=== PATIENT | female | born 1940 | race Caucasian/White ===

== ENCOUNTER 2022-07-16 14:16 | Outpatient (REF) | payer MEDICARE, SELFPAY ==
[2022-07-16 15:08] LABS: Influenza A PCR NEGATIVE (Negative); Influenza B PCR NEGATIVE (Negative); Resp Syncy Virus RNA Qual PCR NEGATIVE (Negative); SARS COV2 PCR INHOUSE NEGATIVE (Negative)
== END 2022-07-16 14:17 | disposition home or self-care (01) ==
LOC: HO.LNP 14:16
PROVIDERS: Visit Provider Internal Medicine
DX: Z20.822 Contact with and (suspected) exposure to COVID-19 (principal); R43.9 Unspecified disturbances of smell and taste
CPT/HCPCS: 0241U

== ENCOUNTER 2023-02-28 16:44 | Emergency (ER) | payer BC, SELFPAY ==
[2023-02-28 17:04] VITALS: BP 152/73; PULSE 95; RESP 16; TEMP 36.3; O2SAT 97; BMI 25.7
--- NOTE | 2023-02-28 17:04 | ED_ITS ---
HPI - Nausea/Vomiting/Diarrhea General Chief complaint: Nausea/Vomiting/Diarrhea Stated complaint: dairrhea,vomiting,weakness Time Seen by Provider: 02/28/23 22:57 Source: patient and family ( Son.) Mode of arrival: ambulatory Limitations: no limitations History of Present Illness HPI Narrative: 82-year-old female came in with her son complaining of generalized weakness, decreased oral intake for the last 3 days daily. Patient had left shoulder surgery weeks ago complicated lid with wound infection currently taking antibiotics Patient and the emergency department has no complaint Able to tolerate p.o. intake, nausea, vomiting in the emergency department. Related Data Home Medications Medication Instructions Recorded Confirmed amlodipine 5 mg-benazepril 10 mg 1 cap PO DAILY 07/16/22 09/29/22 capsule omeprazole 20 mg capsule,delayed 20 mg PO DAILY 07/16/22 09/29/22 release pravastatin 80 mg tablet 80 mg PO DAILY 07/16/22 09/29/22 loratadine 10 mg tablet 10 mg PO DAILY PRN 09/29/22 09/29/22 Allergies Allergy/AdvReac Type Severity Reaction Status Date / Time No Known Allergies Allergy Verified 09/29/22 10:50 Review of Systems 2 Review of Systems: all other systems are reviewed and are negative Constitutional: Reports as per HPI and Reports no additional constitutional complaints Eyes: Reports as per HPI and Reports no additional eye complaints Reports system reviewed and no additional complaints, except as documented Cardiovascular: Reports as per HPI and Reports no additional cardiovascular complaints Respiratory: Reports as per HPI and Reports no additional respiratory complaints Gastrointestinal: Reports as per HPI and Reports no additional gastrointestinal complaints Genitourinary: Reports no additional female genitourinary complaints Musculoskeletal: Reports no additional musculoskeletal complaints Skin/Breast: Reports system reviewed and no additional complaints, except as docu Psychiatric: Reports no additional psychiatric complaints Endocrine: Reports no additional endocrine complaints Hematologic/Lymphatic: Reports no additional hematologic/lymphatic complaints Allergic/Immunologic: Reports no additional allergic/immunologic complaints Reports system reviewed and no additional complaints, except as documented and Reports Abnormal speech present [facility] Past Medical History Surgical History History of hysterectomy Family History Family History Father No problems noted. Mother Hypertension Social History Social History Household Members Other:: single, lives alone, son lives near Housing: Apartment Patient Tobacco Use Status: Never used Tobacco Smoked in Last 30 Days: No e-Cigarette/Vaping Use: Never Used Use of substances other than those prescribed or required for medical reasons: No Advance Directives: No Advance Directives Information Provided: No Current occupational status: retired Cognitive needs: No Hearing needs: No Vision needs: Yes Physical Exam 2 Vital Signs: Vital Signs: Last Vital Signs Temp 97.7 F 02/28/23 19:53 Pulse 76 02/28/23 19:53 Resp 15 02/28/23 19:53 BP 138/61 02/28/23 19:53 Pulse Ox 96 02/28/23 19:53 O2 Del Method Room Air 02/28/23 19:53 BMI result Body Mass Index 25.7 Vital signs have been reviewed and appear to be correct. Blood pressure elevated. Heart rate normal. Respiratory rate normal. Temperature normal. Oxygen saturation normal. Appearance: Alert. Oriented X3. No acute distress. Head: Normal external exam. Normocephalic. Atraumatic. No Rosenthal signs noted. No raccoon eyes noted Eyes: PERRLA. EOMI. Conjunctiva and sclera normal. Eyelids normal. ENT: TM's Normal. Pharynx normal. Uvula midline. Moist mucous membranes. No trismus noted. No drooling noted. No muffled voice noted. Neck: Normal inspection. Neck supple. FROM. No adenopathy. Thyroid Normal. No meningeal signs. No neck mass noted. CVS: Normal heart rate and rhythm. Heart sound normal. No murmurs noted. Pulses normal throughout. Respiratory: No respiratory distress. Painless inspiration. Breath sounds normal. No wheezes/rales/rhonchi noted. Chest nontender. No accessory muscle usage noted or decreased air movement noted. Abdomen: Soft and nontender. Bowel sounds normal in all 4 quadrants. No distention noted. No organomegaly noted. No visible injury noted. Back: No CVA tenderness. Full range of motion noted. Skin: Skin warm and dry. Normal skin color. Normal skin turgor. No rashes/lesions/lacerations noted. Extremities: No lower extremity edema. Extremities exhibit normal range of motion. Extremities nontender. Neuro: Oriented X 3. Cranial nerve exam: II-XII are grossly intact No motor deficit. No sensory deficit. Reflexes normal. Course Course Course Narrative: This is a rapid medical exam. deferred additional HPI, ROS, PE to primary provider. 82 yo female with history of HTN, HLD, memory loss here with complaints of vomiting, diarrhea, generalized weakness x 3 days. Will obtain labs, UA, Stool studies VSS Was recently on antibiotics Reevaluation(s) Reevaluation #1: nonspecific generalized religiously, unremarkable labs, able to tolerate po intake. Patient is feels little at her baseline And like doing to be discharged home. Time: 23:40 Medical Decision Making Differential Diagnosis Differential Diagnoses: The differential diagnosis associated with the presentation includes ( viral infection, electrolyte abnormality, severe Anemia, dehydration in, UTI, C diff colitis) Admission/Observation Consideration of admission/observation: Escalation of care including admission/observation considered Lab Data MDM Lab Attestation statement: I reviewed the patient's lab results. 02/28/23 17:21 02/28/23 17:21 Labs: Lab Results 02/28/23 02/28/23 02/28/23 Range/Units 17:21 18:53 20:24 WBC 5.6 (4.8-10.8) X10*3/uL RBC 4.92 (4.20-5.50) X10*6/uL Hgb 13.8 (12.0-16.0) g/dl Hct 41.2 (37.0-47.0) % MCV 83.7 (80.0-98.0) fL MCH 28.0 (27.0-33.0) pg MCHC 33.5 (31.0-35.0) g/dl RDW 13.5 (11.0-16.0) % Plt Count 319 (160-400) X10*3/uL MPV 10.4 (9.4-12.3) fL Immature Gran % (Auto) 0.2 (0.0-0.4) % Neut % (Auto) 67.6 (45-73) % Lymph % (Auto) 19.4 L (20-40) % Smith % (Auto) 10.8 (2-11) % Eos % (Auto) 0.7 (0-4) % Baso % (Auto) 1.3 (0-2) % Lymph # (Auto) 1.1 L (1.2-4.9) X10*3/uL Smith # (Auto) 0.6 (0.1-1.2) X10*3/uL Eos # (Auto) 0.0 (0.0-0.4) X10*3/uL Baso # (Auto) 0.1 (0.0-0.2) X10*3/uL Abs Immat Gran (auto) 0.01 (0.00-0.03) X10*3/uL Absolute Neuts (auto) 3.8 (2.0-8.3) x10*3/uL Absolute Nucleated RBC 0.000 (0.0-0.012) X10*3/uL Nucleated RBC % (auto) 0.0 (0.0-0.2) /100WBC Sodium 138 (135-145) mmol/L Potassium 3.6 (3.3-5.1) mmol/L Chloride 102 (96-108) mmol/L Carbon Dioxide 23 (22-29) mmol/L Anion Gap 17 (12-20) BUN 31 H (9-16) mg/dL Creatinine 1.29 (0.5-1.4) mg/dL Estim Creat Clear Calc 29.6 Estimated GFR 39 Random Glucose 102 (60-115) mg/dL Calcium 9.6 (8.4-10.2) mg/dL Magnesium 1.9 (1.6-2.6) mg/dL Total Bilirubin 1.0 (0.0-1.0) mg/dL Direct Bilirubin 0.4 (0.0-0.5) mg/dL AST 33 H (5-31) U/L ALT 29 (0-31) U/L Alkaline Phosphatase 88 (39-117) U/L Total Protein 6.7 (6.5-8.0) g/dL Albumin 3.5 (3.5-5.0) g/dL Lipase 21 (8-78) U/L Urine Color Dark Yellow Urine Appearance Clear Urine pH 5.5 (5.0-9.0) Ur Specific Voss 1.020 (1.005-1.025) Urine Protein Negative (Neg-Trace) mg/dL Urine Glucose (UA) Negative (Negative) mg/dL Urine Ketones 15 (Negative) mg/dL Urine Blood Negative (Negative) Urine Nitrite Negative (Negative) Ur Leukocyte Esterase Trace H (Negative) Urine RBC 0-2 (0-2) /HPF Urine WBC 0-5 (0-5) /HPF Ur Squamous Epith Cells 0-2 (0-2) /HPF Urine Bacteria None Seen (None Seen) Hyaline Casts 3-5 (0-2) /LPF C. difficile Tox B Gene NEGATIVE (Negative) Influenza Type A (PCR) NEGATIVE (Negative) Influenza Type B (PCR) NEGATIVE (Negative) RSV RNA Qual (PCR) NEGATIVE (Negative) SARS-CoV-2 RNA (RT-PCR) NEGATIVE (Negative) Discharge Plan Discharge Clinical Impression: Generalized weakness Patient Disposition: Home, Self-Care Instructions: Weakness (ED) Prescriptions: No Action pravastatin 80 mg tablet 80 mg PO DAILY amlodipine-benazepril 5-10 mg capsule 1 cap PO DAILY omeprazole 20 mg capsule,delayed release(DR/EC) 20 mg PO DAILY loratadine 10 mg tablet 10 mg PO DAILY PRN Referrals: Physician,Unknown J [Primary Care Provider] -
[2023-02-28 17:32] LABS: MANUAL DIFF FLAG NO
[2023-02-28 17:33] LABS: Basophils Absolute Auto 0.1 X10*3/uL (0.0-0.2); Basophils Percent Auto 1.3 % (0-2); Eosinophils Percent Auto 0.7 % (0-4); Hematocrit 41.2 % (37.0-47.0); Hemoglobin 13.8 g/dl (12.0-16.0); Imm Gran Abs Auto 0.01 X10*3/uL (0.00-0.03); Imm Gran Pct Auto 0.2 % (0.0-0.4); Lymphocytes Absolute Auto 1.1 X10*3/uL (1.2-4.9); Lymphocytes Percent Auto 19.4 % (20-40); Mean Corpuscular HGB Conc 33.5 g/dl (31.0-35.0); Mean Corpuscular Volume 83.7 fL (80.0-98.0); Mean Platelet Volume 10.4 fL (9.4-12.3); Monocytes Absolute Auto 0.6 X10*3/uL (0.1-1.2); Monocytes Percent Auto 10.8 % (2-11); Neutrophils Absolute Auto 3.8 x10*3/uL (2.0-8.3); Neutrophils Percent Auto 67.6 % (45-73); Platelet Count 319 X10*3/uL (160-400); Red Blood Count 4.92 X10*6/uL (4.20-5.50); Red Cell Distribution Width 13.5 % (11.0-16.0); White Blood Count 5.6 X10*3/uL (4.8-10.8)
[2023-02-28 17:47] LABS: Alanine Aminotransferase 29 U/L (0-31); Albumin Level 3.5 g/dL (3.5-5.0); Alkaline Phosphatase 88 U/L (39-117); Anion Gap 17 (12-20); Aspartate Amino Transferase 33 U/L (5-31); Bilirubin Direct 0.4 mg/dL (0.0-0.5); Blood Urea Nitrogen 31 mg/dL (9-16); Calcium 9.6 mg/dL (8.4-10.2); Carbon Dioxide 23 mmol/L (22-29); Chloride 102 mmol/L (96-108); Creatinine Clr Calc Pharmacy 29.6; Estimated Glomerular Filt Rate 39; Glucose Random 102 mg/dL (60-115); Lipase 21 U/L (8-78); Magnesium 1.9 mg/dL (1.6-2.6); Potassium 3.6 mmol/L (3.3-5.1); Sodium 138 mmol/L (135-145); Total Protein 6.7 g/dL (6.5-8.0)
[2023-02-28 18:15] LABS: Influenza A PCR NEGATIVE (Negative); Influenza B PCR NEGATIVE (Negative); Resp Syncy Virus RNA Qual PCR NEGATIVE (Negative); SARS COV2 PCR INHOUSE NEGATIVE (Negative)
[2023-02-28 19:49] LABS: CDiff Gene PCR NEGATIVE (Negative)
[2023-02-28 19:53] VITALS: BP 138/61; PULSE 76; RESP 15; TEMP 36.5; O2SAT 96
[2023-02-28 20:32] LABS: Appearance Urine Clear; Color Urine Dark Yellow; Glucose Urine UA Negative (Negative); Leukocyte Esterase Urine Trace (Negative); Nitrite Urine Negative (Negative); PH 5.5 (5.0-9.0); UMIC TRIGGER UACC YES; Urine Blood Negative (Negative); Urine Ketones 15 mg/dL (Negative); Urine Protein Negative (Neg-Trace)
[2023-02-28 20:34] LABS: Bacteria Urine None Seen (None Seen); RBC Urine 0-2 /HPF (0-2); Squamous Epithelial Cell Urine 0-2 /HPF (0-2); WBC Urine 0-5 /HPF (0-5)
[2023-02-28 23:49] VITALS: BP 120/62; PULSE 81; RESP 16; TEMP 36.6; O2SAT 98
--- NOTE | 2023-02-28 23:49 | PC.NURSE ---
This RN reviewed discharge instruction with pt. pt verbalized understanding, no sob or chest pain. notified MEERA Williamson
[2023-03-01 13:10] LABS: Adenovirus F 40/41 Not Detected (Not Detect.); Astrovirus Not Detected (Not Detect.); Campylobacter Not Detected (Not Detect.); Cryptosporidium Not Detected (Not Detect.); Cyclospora cayetanensis Not Detected (Not Detect.); E. coli EAEC Not Detected (Not Detect.); E. coli EPEC Not Detected (Not Detect.); E. coli ETEC Not Detected (Not Detect.); E. coli STEC Not Detected (Not Detect.); Entamoeba histolytica Not Detected (Not Detect.); Giardia lamblia Not Detected (Not Detect.); Norovirus GI/GII Not Detected (Not Detect.); Plesiomonas shigelloides Not Detected (Not Detect.); Rotavirus A Not Detected (Not Detect.); Salmonella Not Detected (Not Detect.); Sapovirus Not Detected (Not Detect.); Shigella sp./EIEC Not Detected (Not Detect.); Vibrio Not Detected (Not Detect.); Vibrio Cholerae Not Detected (Not Detect.); Yersinia enterocolitica Not Detected (Not Detect.)
== END 2023-02-28 23:53 | disposition home or self-care (01) ==
PROVIDERS: Nurse Practitioner Family; Emergency Provider Emergency Medicine
DX: R53.1 Weakness (principal); R11.2 Nausea with vomiting, unspecified; R19.7 Diarrhea, unspecified; Z20.822 Contact with and (suspected) exposure to COVID-19; Z20.828 Contact with and (suspected) exposure to other viral communicable diseases; I10 Essential (primary) hypertension; E78.5 Hyperlipidemia, unspecified; Z90.710 Acquired absence of both cervix and uterus; Z79.899 Other long term (current) drug therapy; E55.9 Vitamin D deficiency, unspecified
CPT/HCPCS: 0241U; 80048; 80076; 81001; 83690; 83735; 85025; 87493; 87507; 99283; 99284

== ENCOUNTER 2023-03-26 10:03 | Outpatient (REF) | payer MEDICARE, SELFPAY ==
[2023-03-26 13:21] LABS: MANUAL DIFF FLAG NO
[2023-03-26 13:29] LABS: Basophils Absolute Auto 0.1 X10*3/uL (0.0-0.2); Basophils Percent Auto 1.4 % (0-2); Eosinophils Absolute Auto 0.1 X10*3/uL (0.0-0.4); Eosinophils Percent Auto 3.1 % (0-4); Hematocrit 34.3 % (37.0-47.0); Hemoglobin 10.7 g/dl (12.0-16.0); Imm Gran Abs Auto 0.01 X10*3/uL (0.00-0.03); Imm Gran Pct Auto 0.3 % (0.0-0.4); Lymphocytes Absolute Auto 0.6 X10*3/uL (1.2-4.9); Mean Corpuscular HGB Conc 31.2 g/dl (31.0-35.0); Mean Corpuscular Hemoglobin 27.8 pg (27.0-33.0); Mean Corpuscular Volume 89.1 fL (80.0-98.0); Monocytes Absolute Auto 0.4 X10*3/uL (0.1-1.2); Monocytes Percent Auto 10.2 % (2-11); Neutrophils Absolute Auto 2.4 x10*3/uL (2.0-8.3); Red Blood Count 3.85 X10*6/uL (4.20-5.50); Red Cell Distribution Width 16.4 % (11.0-16.0); White Blood Count 3.5 X10*3/uL (4.8-10.8)
[2023-03-26 13:53] LABS: Alanine Aminotransferase 15 U/L (0-31); Albumin Level 3.3 g/dL (3.5-5.0); Alkaline Phosphatase 51 U/L (39-117); Anion Gap 12 (12-20); Aspartate Amino Transferase 14 U/L (5-31); Bilirubin Total 0.3 mg/dL (0.0-1.0); Blood Urea Nitrogen 11 mg/dL (9-16); Calcium 9.3 mg/dL (8.4-10.2); Carbon Dioxide 25 mmol/L (22-29); Chloride 107 mmol/L (96-108); Cholesterol 235 mg/dL (<200); Estimated Glomerular Filt Rate > 60; Glucose Fasting 88 mg/dL (60-99); HDL Cholesterol 56 mg/dL (>40); LDL Cholesterol Calculated 156 mg/dL (<100); Potassium 4.2 mmol/L (3.3-5.1); Sodium 140 mmol/L (135-145); Triglycerides 118 mg/dL (<150)
[2023-03-26 14:09] LABS: TSH reflex Free T4 2.77 uIU/mL (0.32-4.0); Vitamin D 25-OH Total 21.7 ng/mL (>30)
[2023-03-26 14:14] LABS: Folate 3.4 ng/mL (> or = 4.0); Vitamin B12 354 pg/mL (200-900)
== END 2023-03-26 10:04 | disposition home or self-care (01) ==
LOC: HO.HMGCLDS 10:03
PROVIDERS: PCP Internal Medicine; Visit Provider Internal Medicine
DX: E78.5 Hyperlipidemia, unspecified (principal); E55.9 Vitamin D deficiency, unspecified; I10 Essential (primary) hypertension
CPT/HCPCS: 36415; 80053; 80061; 82306; 82607; 82746; 84443; 85025

== ENCOUNTER 2023-04-03 09:54 | Outpatient (REF) | payer MEDICARE, SELFPAY ==
[2023-04-03 14:11] LABS: Iron 48 mcg/dL (30-160); Percent Iron Saturation 21 % (15-50); Total Iron Binding Capacity 232 mcg/dL (228-428); Unsaturated Iron Binding 184 ug/dL
[2023-04-04 00:47] LABS: Haptoglobin 192 MG/DL ((30-200))
[2023-04-07 18:22] LABS: IgA 244 mg/dL (70-320); IgG 793 mg/dL (600-1540); IgM 22 mg/dL (50-300)
== END 2023-04-03 09:55 | disposition home or self-care (01) ==
LOC: HO.HMGCLDS 09:54
PROVIDERS: PCP Internal Medicine; Visit Provider Internal Medicine
DX: D64.9 Anemia, unspecified (principal)
CPT/HCPCS: 36415; 82784; 83010; 83540; 86334

== ENCOUNTER 2023-04-28 10:54 | Outpatient (AMB) | payer MEDICARE, SELFPAY ==
--- NOTE | 2023-04-28 10:59 | MHC.PC.OV ---
Vital Signs 04/28/23 11:02 Height 5 ft 2 in Weight 142 lb BMI 26.0 BP 128/74 Blood Pressure Location Lt brachial Position Sitting Pulse 87 Pulse Source Pulse Oximeter Pulse Oximetry (%) 98 Oxygen Delivery Method Room Air Intake Visit Reasons: 6 Month follow up Intake Note: Pt is here today for 6 months follow up visit. Allergies No Known Allergies Allergy (Verified 04/28/23 10:59) Medication List - Last Reconciled 04/28/23 by Brittney Marie MD amlodipine-benazepril 5-10 mg 1 cap PO DAILY cholecalciferol (vitamin D3) 50 mcg PO DAILY folic acid 1 mg PO DAILY loratadine 10 mg PO DAILY PRN omeprazole 20 mg PO DAILY pravastatin 80 mg PO DAILY Tobacco use date assessed: 04/28/23 Fall risk assessment: No Falls in past year Last assessed Fall Risk: 04/28/23 Dental Screening Dental Screen Date: 04/28/23 Did you have a dental visit in the last 12 months?: Yes Did you have a dental problem in the last 6 months where you did not have access to dental care?: No Was dental information given to patient?: Patient has dentist HPI 6 Month follow up HPI Details Patient presents for the follow-up. She was seen in the ER last with complaint of general fatigue. H/H was low with normal iron studies but low folic acid level. Patient was started on folic acid supplement. Her son reports patient being forgetful and possibly not being compliant with her medications. Patient reports eating well-balanced diet, mainly TV dinners. She lives alone but her son visits her every day. She denies chest pain shortness of breath hematochezia melena abdominal pain PFSH Surgical History History of hysterectomy Family History Father No problems noted. Mother Hypertension Social History Household Members Other:: single, lives alone, son lives near Housing: Apartment Patient Tobacco Use Status: Never used Tobacco e-Cigarette/Vaping Use: Never Used Current occupational status: retired Cognitive needs: No Hearing needs: No Vision needs: Yes Questionnaire PHQ-9 Over the last 2 weeks, how often have you been bothered by any of the following problems? 1. Little interest or pleasure in doing things: not at all 2. Feeling down, depressed, or hopeless: not at all 3. Trouble falling or staying asleep, or sleeping too much: not at all 4. Feeling tired or having little energy: not at all 5. Poor appetite or overeating: not at all 6. Feeling bad about yourself - or that you are a failure or have let yourself or your family down: not at all 7. Trouble concentrating on things, such as reading the newspaper or watching television: not at all 8. Moving or speaking so slowly that other people could have noticed. Or the opposite - being so fidgety or restless that you have been moving around a lot more than usual: not at all 9. Thoughts that you would be better off or of hurting yourself in some way: not at all Total score: 0 Depression Screening Interpretation: Negative Depression Screening Done: Yes Source: Developed by Drs. Calvin Meeks, Alexandra Peterson, Kenn Kincaid and colleagues, with an educational clem from [employer]. Thrive Questionnaire Date Thrive assessed: 04/28/23 I am a: Patient What is your living situation today?: I have a steady place to live Within the past 12 months, did the food you bought not last and you didn't have the money to get more?: Never true Within the past 12 months, did you worry whether your food would run out before you got money to buy more?: Never true Do you have trouble paying for medicines?: No Do you have trouble getting transportation to medical appointments?: No Do you have trouble paying your heating and electricity bill?: No Do you have trouble taking care of your child, family member or friend?: No Do you have trouble with day-to-day activities such as bathing, preparing meals, shopping, managing finances, etc.?: No Are you currently unemployed and looking for a job?: No Are you interested in more education?: No Please select the resources that you would like help with: None Currently or been in a relationship where the following occur: no concerns reported AUDIT C Alcohol Use Questionnaire (AUDIT-C) 1. How often do you have a drink containing alcohol?: Never 3. How often do you have six or more drinks on one occasion?: Never Total Score: 0 BEBE-7 AMB Questionnaire BEBE-7 Date BEBE - 7 assessed: 04/28/23 Feeling nervous, anxious, or on edge: 0 = Not at all Not being able to stop or control worryin = Not at all Worrying too much about different things: 0 = Not at all Trouble relaxin = Not at all Being so restless that it is hard to sit still: 0 = Not at all Becoming easily annoyed or irritable: 0 = Not at all Feeling afraid as if something awful might happen: 0 = Not at all Total BEBE-7 score (0-4 normal; 5-9 mild; 10-14 moderate; 15-21 severe): 0 Source: Developed by Drs. Calvin Meeks, Alexandra Peterson, Kenn Kincaid and colleagues, with an educational clem from [employer]. Review of Systems Const All systems reviewed & are unremarkable except as noted in HPI and below Reports no additional complaints Eyes Reports no additional complaints ENT Reports no additional complaints Card Reports no additional complaints Resp Reports no additional complaints GI Reports no additional complaints Reports no additional complaints Physical exam (Primary Care) Vital Signs: Last Vital Signs Pulse 87 04/28/23 11:02 BP 128/74 04/28/23 11:02 Pulse Ox 98 04/28/23 11:02 Oxygen Delivery Method Room Air 04/28/23 11:02 BMI result Body Mass Index 26.0 Tobacco/Smoking Status: Tobacco use Status Tobacco use date assessed 04/28/23 04/28/23 11:07 Patient Tobacco Use Status Never used Tobacco 04/28/23 11:07 e-Cigarette/Vaping Use Never Used 04/28/23 11:00 Depression Screening Interpretation: Negative Thrive Assessment: Date of Thrive Assessment Date Thrive assessed 09/29/22 04/28/23 11:00 Currently or been in a relationship where the following occur: no concerns reported Const General: no acute distress HENMT Ears: hearing grossly normal bilaterally Face and sinus: Yes normal facial exam Neck Neck: Yes no lymphadenopathy and Yes supple Resp Effort & Inspection: normal respiratory effort Auscultation: clear to auscultation bilaterally Cardio Rhythm: regular rhythm Heart sounds: S1 normal heart sound present and S2 normal heart sound present GI Inspection: Yes normal to inspection Palpation (GI): Soft to palpation Percussion: Yes normal to percussion Auscultation: normal bowel sounds Assessment and Plan Assessment & Plan (1) Anemia: Code(s): D64.9 - Anemia, unspecified Plan: check CBC, folic acid, Iron studies, cont Folic acid supplement (2) Vitamin D3 deficiency: Code(s): E55.9 - Vitamin D deficiency, unspecified Plan: cont vit D (3) Hypertension: Code(s): I10 - Essential (primary) hypertension Plan: cont Amlodipine/benazepril (4) Hyperlipidemia: Code(s): E78.5 - Hyperlipidemia, unspecified Plan: restart pravastatin Orders: Orders Complete Blood Count Auto Diff Today D64.9 - Anemia, unspecified, E55.9 - Vitamin D deficiency, unspecified, E78.5 - Hyperlipidemia, unspecified, I10 - Essential (primary) hypertension Comprehensive Tappen. Panel Fast Today D64.9 - Anemia, unspecified, E55.9 - Vitamin D deficiency, unspecified, E78.5 - Hyperlipidemia, unspecified, I10 - Essential (primary) hypertension IRON PROFILE Today D64.9 - Anemia, unspecified, E55.9 - Vitamin D deficiency, unspecified, E78.5 - Hyperlipidemia, unspecified, I10 - Essential (primary) hypertension Vitamin B12 and Folate Today D64.9 - Anemia, unspecified, E55.9 - Vitamin D deficiency, unspecified, E78.5 - Hyperlipidemia, unspecified, I10 - Essential (primary) hypertension Vitamin D 25-OH Total Today D64.9 - Anemia, unspecified, E55.9 - Vitamin D deficiency, unspecified, E78.5 - Hyperlipidemia, unspecified, I10 - Essential (primary) hypertension Medications: New pravastatin 80 mg PO DAILY 90 tabs 3RF amlodipine-benazepril 5-10 mg 1 cap PO DAILY 90 caps 3RF Refilled folic acid 1 mg PO DAILY 90 tabs 3RF cholecalciferol (vitamin D3) 50 mcg PO DAILY 90 tabs 3RF Coding Level of Care Code Est Pt Level 4 (81084) Diagnoses Anemia D64.9 Vitamin D3 deficiency E55.9 Hypertension I10 Hyperlipidemia E78.5
[2023-04-28 11:02] VITALS: BP 128/74; PULSE 87; O2SAT 98; BMI 26.0
== END 2023-04-28 11:44 | disposition home or self-care (01) ==
PROVIDERS: PCP Internal Medicine; Visit Provider Internal Medicine
DX: D64.9 Anemia, unspecified (principal); E55.9 Vitamin D deficiency, unspecified; I10 Essential (primary) hypertension; E78.5 Hyperlipidemia, unspecified
CPT/HCPCS: 99214

== ENCOUNTER 2023-04-28 11:45 | Outpatient (REF) | payer MEDICARE, SELFPAY ==
[2023-04-28 13:13] LABS: Basophils Absolute Auto 0.1 X10*3/uL (0.0-0.2); Basophils Percent Auto 1.6 % (0-2); Eosinophils Absolute Auto 0.1 X10*3/uL (0.0-0.4); Eosinophils Percent Auto 2.1 % (0-4); Hematocrit 37.7 % (37.0-47.0); Hemoglobin 12.3 g/dl (12.0-16.0); Lymphocytes Absolute Auto 0.6 X10*3/uL (1.2-4.9); Lymphocytes Percent Auto 15.9 % (20-40); MANUAL DIFF FLAG SCAN; Mean Corpuscular HGB Conc 32.6 g/dl (31.0-35.0); Mean Corpuscular Hemoglobin 29.3 pg (27.0-33.0); Mean Corpuscular Volume 89.8 fL (80.0-98.0); Monocytes Absolute Auto 0.4 X10*3/uL (0.1-1.2); Monocytes Percent Auto 9.1 % (2-11); Neutrophils Absolute Auto 2.7 x10*3/uL (2.0-8.3); Neutrophils Percent Auto 71.3 % (45-73); PLT CLUMP 1; Red Cell Distribution Width 14.7 % (11.0-16.0); SCAN SMEAR FLAG 1
[2023-04-28 13:20] LABS: White Blood Count 3.8 X10*3/uL (4.8-10.8)
[2023-04-28 13:37] LABS: SLIDE REVIEW VERIFIED
[2023-04-28 13:57] LABS: Alanine Aminotransferase 11 U/L (0-31); Albumin Level 4.1 g/dL (3.5-5.0); Alkaline Phosphatase 61 U/L (39-117); Anion Gap 12 (12-20); Aspartate Amino Transferase 14 U/L (5-31); Bilirubin Total 0.5 mg/dL (0.0-1.0); Blood Urea Nitrogen 11 mg/dL (9-16); Calcium 9.7 mg/dL (8.4-10.2); Carbon Dioxide 22 mmol/L (22-29); Chloride 105 mmol/L (96-108); Estimated Glomerular Filt Rate 53; Glucose Fasting 95 mg/dL (60-99); Iron 90 mcg/dL (30-160); Percent Iron Saturation 31 % (15-50); Potassium 3.9 mmol/L (3.3-5.1); Sodium 135 mmol/L (135-145); Total Iron Binding Capacity 287 mcg/dL (228-428); Total Protein 7.2 g/dL (6.5-8.0); Unsaturated Iron Binding 197 ug/dL
[2023-04-28 14:02] LABS: Vitamin D 25-OH Total 23.5 ng/mL (>30)
[2023-04-28 14:07] LABS: Folate > 20.0 ng/mL (> or = 4.0); Vitamin B12 328 pg/mL (200-900)
== END 2023-04-28 11:46 | disposition home or self-care (01) ==
LOC: HO.HMGCLDS 11:45
PROVIDERS: PCP Internal Medicine; Visit Provider Internal Medicine
DX: D64.9 Anemia, unspecified (principal); E55.9 Vitamin D deficiency, unspecified; I10 Essential (primary) hypertension; E78.5 Hyperlipidemia, unspecified
CPT/HCPCS: 36415; 80053; 82306; 82607; 82746; 83540; 85025

== ENCOUNTER 2023-05-12 16:34 | Inpatient (IN) | payer MEDICARE, SELFPAY ==
--- NOTE | 2023-05-12 | ECG_ITS ---
Test Reason : FALL Blood Pressure : / mmHG Vent. Rate : 080 BPM Atrial Rate : 080 BPM P-R Int : 148 ms QRS Dur : 074 ms QT Int : 378 ms P-R-T Axes : 046 029 044 degrees QTc Int : 435 ms Sinus rhythm with Premature atrial complexes Otherwise normal ECG No previous ECGs available Referred By: Anya Bond Electronically Signed By:Sreedhar Alvarado
--- NOTE | ~2023-05-12 | XR_ITS ---
EXAMINATION: XR CHEST CLINICAL INFORMATION: Preop COMPARISON: None available. TECHNIQUE: Frontal view of the chest was obtained. FINDINGS: The cardiac and mediastinal contours are normal. There is subsegmental atelectasis at the left lung base. The lungs are otherwise clear. There is slight elevation of the right hemidiaphragm. No pleural effusion or pneumothorax. No acute bone abnormality. XR/XR chest 1V IMPRESSION: Subsegmental atelectasis left base.
--- NOTE | ~2023-05-12 | XR_ITS ---
EXAMINATION: XR PELVIS CLINICAL INFORMATION: Status post left hip hemiarthroplasty COMPARISON: None available. TECHNIQUE: AP view of the pelvis. FINDINGS: There is a total left hip prosthesis in satisfactory alignment. Immediate post op surgical alden along the left lateral hip. There are surgical alden in the pelvis from previous intervention. Visualized rest of the pelvis and right hip is unremarkable XR/XR pelvis 1-2V IMPRESSION: Total left hip prosthesis in satisfactory alignment. Immediate post op surgical alden along the left lateral hip.
--- NOTE | ~2023-05-12 | XR_ITS ---
EXAMINATION: XR HIP, LEFT CLINICAL INFORMATION: Fall COMPARISON: None available. TECHNIQUE: Two views of the left hip and one view of the pelvis. FINDINGS: There is a left femoral neck fracture. Bones of the pelvis are unremarkable. Mild degenerative changes of the right hip and visualized lower lumbar spine. Soft tissues are unremarkable. XR/XR hip LT w PEL1V IMPRESSION: Left femoral neck fracture.
--- NOTE | ~2023-05-12 | XR_ITS ---
EXAMINATION: XR KNEE, LEFT CLINICAL INFORMATION: Pain post fall COMPARISON: None available. TECHNIQUE: Two views of the left knee. FINDINGS: Bone alignment is normal. No fracture or dislocation. Mild tricompartment arthritis. Small joint effusion. XR/XR knee LT 2V IMPRESSION: No fracture or dislocation. Degenerative changes.
--- NOTE | ~2023-05-12 | XR_ITS ---
EXAMINATION: XR ANKLE, LEFT CLINICAL INFORMATION: Pain post fall COMPARISON: None available. TECHNIQUE: Two views of the left ankle. FINDINGS: Bone alignment is normal. No fracture or dislocation. The ankle mortise is normal. Bones are osteopenic. Soft tissue arterial calcification. No soft tissue swelling. XR/XR ankle LT 2V IMPRESSION: No fracture or dislocation.
[2023-05-12 18:30] VITALS: BP 145/74; PULSE 87; RESP 18; TEMP 36.6; O2SAT 94; BMI 27.3
--- NOTE | 2023-05-12 18:33 | ED_ITS ---
HPI - Fall General Chief Complaint: Fall Stated Complaint: fell today/pain Time Seen by Provider: 05/12/23 21:03 Source: patient and family Mode of arrival: ambulatory History of Present Illness HPI Narrative: 82-year-old female who was going to [facility] for some cough medication when she slipped and fell on the ice onto the left hip and states that at this time she is unable to bear weight on her left leg and describes pain over the proximal femur/hip area she denies any head strike or loss of consciousness and denies any chronic use of blood thinners. Related Data Previous Rx's Medication Instructions Recorded amlodipine 5 mg-benazepril 10 mg 1 cap PO DAILY #90 caps 04/28/23 capsule cholecalciferol (vitamin D3) 50 50 mcg PO DAILY #90 tabs 04/28/23 mcg (2,000 unit) tablet folic acid 1 mg tablet 1 mg PO DAILY #90 tabs 04/28/23 pravastatin 80 mg tablet 80 mg PO DAILY #90 tabs 04/28/23 Allergies Allergy/AdvReac Type Severity Reaction Status Date / Time No Known Allergies Allergy Verified 04/28/23 10:59 Review of Systems 2 Review of Systems: Pertinent positives and negatives as stated in HPI [facility] [place] Past Medical History Source: nursing notes reviewed Surgical History History of hysterectomy Family History Family History Father No problems noted. Mother Hypertension Social History Social History Household Members Other:: single, lives alone, son lives near Housing: Apartment Patient Tobacco Use Status: Never used Tobacco e-Cigarette/Vaping Use: Never Used Advance Directives: No Advance Directives Information Provided: No Current occupational status: retired Cognitive needs: No Hearing needs: No Vision needs: Yes Physical Exam 2 Vital Signs: Vital Signs: Last Vital Signs Temp 98.7 F 05/12/23 22:08 Pulse 80 05/12/23 22:08 Resp 16 05/12/23 22:08 BP 162/94 H 05/12/23 22:08 Pulse Ox 95 05/12/23 22:08 O2 Del Method Room Air 05/12/23 22:08 BMI result Body Mass Index 27.3 VITAL SIGNS: Reviewed. GENERAL: Well developed, well nourished, in no acute distress. HEAD: Normocephalic/atraumatic EYES: PERRLA, EOMI EARS: Ext canals without abnormality NOSE: Nares patent bilateral OROPHARYNX: no oral lesions noted, posterior pharynx clear NECK: Supple, no adenopathy LUNGS: Normal breath sounds. No adventitious sounds or accessory muscle use. SpO2<94> CARDIOVASCULAR: Regular rate and rhythm without noted murmurs ABDOMEN: Soft, non-tender, non-distended with bowel sounds. PELVIS: pain at LEFT hip and inability to lift leg MUSCULOSKELETAL: No tenderness, deformities, or effusions noted on gross inspection. EXTREMITIES: No cyanosis, clubbing or edema. SKIN: Inspection of the skin reveals no rashes NEUROLOGIC: Alert and oriented x 4. Strength and sensation to light touch were grossly intact x 4. Course Course Course Narrative: RME: 82 year-old F w/ PMHx HTN, HLD, anemia presenting to the ED c/o LLE pain s/p slip & fall on ice around 16:30, denies head trauma or LOC. Has not ambulated since fall +L knee swelling with superficial abrasion and tenderness. Left ankle with diffuse tenderness. Pelvis stable. In wheelchair X-rays ordered Full HPI, ROS and PE to be performed by primary ED provider. Medications Administered Discontinued Medications Generic Name Dose Route Start Last Admin Trade Name Freq PRN Reason Stop Dose Admin Ketorolac Tromethamine 15 mg 05/12/23 22:09 05/12/23 22:58 Ketorolac Tromethamine 30 Mg/Ml Vial IVPUSH 05/12/23 22:10 15 mg ONCE ONE Administration Medical Decision Making Medical Decision Making [facility] Narrative: 82-year-old female with history and clinical presentation, DDX: High clinical suspicion for left hip fracture, lower clinical suspicion for any knee/femur/ankle pathology. 223: I reviewed hip x-ray and positive for left femoral neck fracture. I informed Orthopedics who recommends admission. 7: I discussed case with inpatient hospitalist who accepts admission. I reviewed all investigations and hematologic indices demonstrate a noninfectious reactive leukocytosis, patient is afebrile and has a normocytic anemia which she has had previously and carries a diagnosis for anemia without any history or clinical findings to suggest active bleeding. Chemistry indices negative for NIYAH/electrolyte or liver enzyme derangements. X-rays demonstrate a left femoral neck fracture and otherwise no acute findings on chest x-ray or knee/ankle. Urinalysis is pending Differential Diagnosis Differential Diagnoses: The differential diagnosis associated with the presentation includes Please see the discussion above Admission/Observation Consideration of admission/observation: Escalation of care including admission/observation considered Please see the discussion above Consult Healthcare Provider Management of the patient was discussed with: Hospitalist and Manufacturing Process Technician Please see the discussion above Lab Data MDM Lab Attestation statement: I reviewed the patient's lab results. Please see the discussion above 05/12/23 22:53 05/12/23 22:53 Labs: Lab Results 05/12/23 Range/Units 22:53 WBC 13.0 H (4.8-10.8) X10*3/uL RBC 3.88 L (4.20-5.50) X10*6/uL Hgb 11.3 L (12.0-16.0) g/dl Hct 34.0 L (37.0-47.0) % MCV 87.6 (80.0-98.0) fL MCH 29.1 (27.0-33.0) pg MCHC 33.2 (31.0-35.0) g/dl RDW 14.1 (11.0-16.0) % Plt Count 160 D (160-400) X10*3/uL MPV 11.2 (9.4-12.3) fL Immature Gran % (Auto) 0.4 (0.0-0.4) % Neut % (Auto) 91.6 H (45-73) % Lymph % (Auto) 1.8 L (20-40) % Gladwin % (Auto) 5.9 (2-11) % Eos % (Auto) 0.0 (0-4) % Baso % (Auto) 0.3 (0-2) % Lymph # (Auto) 0.2 L (1.2-4.9) X10*3/uL [place] # (Auto) 0.8 (0.1-1.2) X10*3/uL Eos # (Auto) 0.0 (0.0-0.4) X10*3/uL Baso # (Auto) 0.0 (0.0-0.2) X10*3/uL Abs Immat Gran (auto) 0.05 H (0.00-0.03) X10*3/uL Absolute Neuts (auto) 11.9 H (2.0-8.3) x10*3/uL Absolute Nucleated RBC 0.000 (0.0-0.012) X10*3/uL Nucleated RBC % (auto) 0.0 (0.0-0.2) /100WBC Smear Tech's Comments VERIFIED Sodium 136 (135-145) mmol/L Potassium 3.7 (3.3-5.1) mmol/L Chloride 105 (96-108) mmol/L Carbon Dioxide 22 (22-29) mmol/L Anion Gap 13 (12-20) BUN 11 (9-16) mg/dL Creatinine 0.86 (0.5-1.4) mg/dL Estim Creat Clear Calc 40.5 Estimated GFR > 60 Random Glucose 148 H (60-115) mg/dL Calcium 9.1 D (8.4-10.2) mg/dL Total Bilirubin 0.5 (0.0-1.0) mg/dL AST 18 (5-31) U/L ALT 14 (0-31) U/L Alkaline Phosphatase 56 (39-117) U/L Total Protein 6.6 (6.5-8.0) g/dL Albumin 3.7 (3.5-5.0) g/dL Radiology Impression Discussion of test interpretation with radiology: I have reviewed the radiologist's reading. Radiologist Impression: Please see the discussion above External Record Review External record reviewed: Outpatient record, Prior outpatient labs and Prior outpatient radiology Chronic Conditions Patient?s care impacted by: Hypertension Critical Care Time Critical Care Time Critical Care Time: Yes Total Critical Care Time: 60 Attestation: I personally attest to this time spent taking care of the patient. Discharge Plan Discharge Clinical Impression: Closed fracture of neck of left femur Patient Disposition: Admitted As Inpatient
[2023-05-12 20:39] VITALS: BP 132/81; PULSE 109; RESP 16; O2SAT 94
[2023-05-12 22:08] VITALS: BP 162/94; PULSE 80; RESP 16; TEMP 37.1; O2SAT 95
[2023-05-12] MEDS: Ketorolac Tromethamine 30 MG/ML VIAL 15 MG IVPUSH (22:58)
[2023-05-12 23:01] LABS: Basophils Percent Auto 0.3 % (0-2); Hemoglobin 11.3 g/dl (12.0-16.0); Imm Gran Abs Auto 0.05 X10*3/uL (0.00-0.03); Imm Gran Pct Auto 0.4 % (0.0-0.4); Lymphocytes Absolute Auto 0.2 X10*3/uL (1.2-4.9); Lymphocytes Percent Auto 1.8 % (20-40); MANUAL DIFF FLAG SCAN; Mean Corpuscular HGB Conc 33.2 g/dl (31.0-35.0); Mean Corpuscular Hemoglobin 29.1 pg (27.0-33.0); Mean Corpuscular Volume 87.6 fL (80.0-98.0); Mean Platelet Volume 11.2 fL (9.4-12.3); Monocytes Absolute Auto 0.8 X10*3/uL (0.1-1.2); Monocytes Percent Auto 5.9 % (2-11); Neutrophils Absolute Auto 11.9 x10*3/uL (2.0-8.3); Neutrophils Percent Auto 91.6 % (45-73); Platelet Count 160 X10*3/uL (160-400); Red Blood Count 3.88 X10*6/uL (4.20-5.50); Red Cell Distribution Width 14.1 % (11.0-16.0); SCAN SMEAR FLAG 1
[2023-05-12 23:17] LABS: Alanine Aminotransferase 14 U/L (0-31); Albumin Level 3.7 g/dL (3.5-5.0); Alkaline Phosphatase 56 U/L (39-117); Anion Gap 13 (12-20); Aspartate Amino Transferase 18 U/L (5-31); Bilirubin Total 0.5 mg/dL (0.0-1.0); Blood Urea Nitrogen 11 mg/dL (9-16); Calcium 9.1 mg/dL (8.4-10.2); Carbon Dioxide 22 mmol/L (22-29); Chloride 105 mmol/L (96-108); Creatinine Clr Calc Pharmacy 40.5; Estimated Glomerular Filt Rate > 60; Glucose Random 148 mg/dL (60-115); Potassium 3.7 mmol/L (3.3-5.1); Sodium 136 mmol/L (135-145); Total Protein 6.6 g/dL (6.5-8.0)
[2023-05-12 23:18] LABS: SLIDE REVIEW VERIFIED
[2023-05-13] VITALS (9 sets, daily range): BP systolic 97–167; BP diastolic 44–91; PULSE 80–93; RESP 16–18; TEMP 36.1–36.9; O2SAT 91–97; BMI 28.2
[2023-05-13] MEDS: HYDROmorphone HCl 1 MG/ML SYRINGE 0.8 MG IVPUSH (00:10)
[2023-05-13] MEDS: Lactated Ringers 1,000 ML 100 ML IVCONT ×2 (00:10→19:42)
[2023-05-13] MEDS: Acetaminophen 325 MG TABLET 975 MG PO (00:10)
--- NOTE | 2023-05-13 00:39 | P.HPHOSP_ITS ---
History of Present Illness Date of Service: 05/12/23 Attending physician on admission: Anya Bond Chief Complaint: Fall, left hip pain Lyudmila Wise is 82 years old woman with past medical history significant for hypertension and hyperlipidemia after she seems to have full. She slipped on the ice and landed on her left hip. She was unable to stand up after falling. She denies head trauma. She denied any symptoms such as dizziness, headache, shortness of breath or chest pain. She also denied nausea, vomiting or diarrhea. There is no fever or chills reported. Patient denied tobacco smoking, alcohol abuse or illicit drug use. She does not take aspirin or anticoagulants. In the ED, she was found to have stable vital signs. Last blood pressure is elevated, 162/94. Blood workup was remarkable for leukocytosis. This mild anemia of 11.3. There are no significant electrolyte imbalances. Renal function is normal. ED tx: Ketorolac IV. According to ED provider case has been discussed with the orthopedic surgery service. Review of Systems 2 Review of Systems: All 12 systems were reviewed and normal except as noted in HPI. [facility] Family History Father No problems noted. Mother Hypertension Surgical History History of hysterectomy Social History Household Members Other:: single, lives alone, son lives near Housing: Apartment Patient Tobacco Use Status: Never used Tobacco e-Cigarette/Vaping Use: Never Used Advance Directives: No Advance Directives Information Provided: No Current occupational status: retired Cognitive needs: No Hearing needs: No Vision needs: Yes Meds Allergies Allergy/AdvReac Type Severity Reaction Status Date / Time No Known Allergies Allergy Verified 04/28/23 10:59 Active Medications: Current Medications Heparin Sodium (Porcine) (Heparin Sodium,Porcine 5,000 Unit/Ml Vial) 5,000 unit SUBCUT BID DEBBIE Hydromorphone HCl (Hydromorphone Hcl 0.5 Mg/0.5 Ml Syringe) 0.5 mg IVPUSH Q3H PRN; Protocol PRN Reason: Pain, Moderate(Pain Scale 4-6) Lactated Ringer's (Lr) 1,000 mls @ 100 mls/hr IVCONT .Q10H [facility] Last Admin: 05/13/23 00:10 Dose: 100 mls/hr Sodium Chloride (0.9 % Sodium Chloride Flush 3 Ml Syringe) 3 ml IVFLUSH QSHIFT [facility] Last Admin: 05/13/23 00:09 Dose: Not Given Physical Exam 2 Vital Signs and Narrative: Vital Signs: Last Vital Signs Temp 98.7 F 05/12/23 22:08 Pulse 80 05/12/23 22:08 Resp 16 05/12/23 22:08 BP 162/94 H 05/12/23 22:08 Pulse Ox 95 05/12/23 22:08 O2 Del Method Room Air 05/12/23 22:08 BMI result Body Mass Index 27.3 Constitutional - Awake and Alert, No apparent distress. Low-salt consult due to pain HEENT - PERRL, EOMI Heart - RRR, No murmurs. Respiratory - Normal lung expansion, Normal respiratory effort, No respiratory distress, CTA bilaterally Gastrointestinal - NT / ND; +BS; No rebound or guarding Extremities - Left hip: Tenderness to palpation. No open wounds. Limited ROM. Distal pulses intact. Skin - Warm/Dry Neurological - Alert & oriented x3. Psychological - Appropriate affect. Results Labs 05/12/23 22:53 05/12/23 22:53 Labs: Laboratory Results - last 24 hr 05/12/23 22:53 MCV 87.6 MCH 29.1 MCHC 33.2 RDW 14.1 Plt Count 160 D MPV 11.2 Immature Gran % (Auto) 0.4 Neut % (Auto) 91.6 H Lymph % (Auto) 1.8 L [place] % (Auto) 5.9 Eos % (Auto) 0.0 Baso % (Auto) 0.3 Lymph # (Auto) 0.2 L [place] # (Auto) 0.8 Eos # (Auto) 0.0 Baso # (Auto) 0.0 Abs Immat Gran (auto) 0.05 H Absolute Neuts (auto) 11.9 H Absolute Nucleated RBC 0.000 Nucleated RBC % (auto) 0.0 Smear Tech's Comments VERIFIED Anion Gap 13 Estim Creat Clear Calc 40.5 Estimated GFR > 60 Random Glucose 148 H Calcium 9.1 D Total Bilirubin 0.5 AST 18 ALT 14 Alkaline Phosphatase 56 Total Protein 6.6 Albumin 3.7 Imaging Radiologist's Impressions: Impressions Ankle X-Ray 05/12/23 22:20 IMPRESSION: No fracture or dislocation. Chest X-Ray 05/12/23 22:20 IMPRESSION: Subsegmental atelectasis left base. Hip/Pelvis X-Ray 05/12/23 22:20 IMPRESSION: Left femoral neck fracture. Knee X-Ray 05/12/23 22:20 IMPRESSION: No fracture or dislocation. Degenerative changes. Assessment and Plan (1) Closed fracture of neck of left femur: Status: Acute (2) Hypertension: Status: Acute Plan Lyudmila Wise is a 82 years old woman admitted with: * Left femoral neck fracture. Admit to hospitalist service. Keep NPO. Pain control with Dilaudid and Tylenol as needed. Orthopedic surgery. Start IV fluids. * Essential hypertension. Continue amlodipine. * Hyperlipidemia. Continue statin. * Mild anemia. Will continue to monitor. DVT prophylaxis: Heparin subQ Code status: Full. Patient will need hospitalization for at least 2 midnights for left femoral neck fracture repair surgery and pain control Quality Stroke Does the patient have a stroke diagnosis?: No VTE Prior VTE?: No VTE Risk Level:: Medical - moderate - high VTE Device Contraindication: N/A - Device Ordered VTE Drug Contraindication: N/A - Med Ordered
[2023-05-13 01:34] LABS: Appearance Urine Clear; Color Urine Yellow; Glucose Urine UA Negative (Negative); Leukocyte Esterase Urine Negative (Negative); Nitrite Urine Negative (Negative); PH 5.5 (5.0-9.0); Specific Gravity - Urine 1.015 (1.005-1.025); Urine Blood Negative (Negative); Urine Ketones Trace mg/dL (Negative); Urine Protein Negative (Neg-Trace)
--- NOTE | 2023-05-13 01:48 | PC.NURSE ---
late entry. pt axox4 resp even and unlabored. Dr. Manuel Bond came to bedside for admission eval. pt medicated per mar for pain. ivf infusing. carl cath inserted as documented pt tolerated well. nad. pt changed into hospital gown jewelry removed per surgery standards. belongings at bedside. Son educated for plan of care no questions/concerns at this time. L. hip rotated externally. skin wpd. cap refill <2 seconds. +pedal pulses. awaiting bed assignment/ortho consult. call oscar within reach.
--- NOTE | 2023-05-13 07:27 | PM.HPOR ---
History of Present Illness History of Present Illness Date of Service: 05/13/23 Chief complaint: Left Hip Fracture Narrative: Lyudmila Wise is a 82 year old female who presented to the ED after sustaining a slip and fall on ice. She hit her left hip and felt immediate pain and inability to ambulate. She has a PMH significant for HTN and HLD. X-rays obtained in the ED revealed a left hip femoral neck fracture. She was admitted to the medicine service with orthopedic consult for further evaluation and treatment. Review of Systems Review of Systems: Yes all other systems are reviewed and are negative [facility] Family History Family History Father No problems noted. Mother Hypertension Surgical History Surgical History History of hysterectomy Social History Social History Household Members: None Household Members Other:: single, lives alone, son lives near Housing: Assisted Living Facility Do you presently have visiting nurse or other home services: Yes Patient Tobacco Use Status: Never used Tobacco e-Cigarette/Vaping Use: Never Used Current occupational status: retired Cognitive needs: No Hearing needs: No Vision needs: Yes Meds Allergies Allergy/AdvReac Type Severity Reaction Status Date / Time No Known Allergies Allergy Verified 04/28/23 10:59 Active Medications: Current Medications Amlodipine Besylate (Amlodipine Besylate 5 Mg Tablet) 5 mg PO DAILY DEBBIE; Protocol Heparin Sodium (Porcine) (Heparin Sodium,Porcine 5,000 Unit/Ml Vial) 5,000 unit SUBCUT BID [facility] Hydromorphone HCl (Hydromorphone Hcl 0.5 Mg/0.5 Ml Syringe) 0.5 mg IVPUSH Q3H PRN; Protocol PRN Reason: Pain, Moderate(Pain Scale 4-6) Lactated Ringer's (Lr) 1,000 mls @ 100 mls/hr IVCONT .Q10H [facility] Last Admin: 05/13/23 00:10 Dose: 100 mls/hr Pravastatin Sodium (Pravastatin Sodium 80 Mg Tablet) 80 mg PO BEDTIME [facility] Sodium Chloride (0.9 % Sodium Chloride Flush 3 Ml Syringe) 3 ml IVFLUSH QSHIFT [facility] Last Admin: 05/13/23 00:09 Dose: Not Given Physical Exam Vital Signs: Vital Signs: Last Vital Signs Temp 98.7 F 05/12/23 22:08 Pulse 80 05/12/23 22:08 Resp 16 05/12/23 22:08 BP 162/94 H 05/12/23 22:08 Pulse Ox 95 05/12/23 22:08 O2 Del Method Room Air 05/12/23 22:08 BMI result Body Mass Index 28.2 Const: General: cooperative, healthy appearing and no acute distress Resp: Effort & Inspection: normal respiratory effort and able to speak in complete sentences Cardio: Rate: regular rate Peripheral pulses: Peripheral pulses 2+ throughout GI: Palpation (GI): Soft to palpation Skin: Lesions: no lesions Rashes: no rashes Extrem: Other: Left lower extremity is shortened and externally rotated. Able to dorsi/plantar flex. NVI. Results Labs 05/12/23 22:53 05/12/23 22:53 Labs: Abnormal lab results 05/12/23 Range/Units 22:53 WBC 13.0 H (4.8-10.8) X10*3/uL RBC 3.88 L (4.20-5.50) X10*6/uL Hgb 11.3 L (12.0-16.0) g/dl Hct 34.0 L (37.0-47.0) % Neut % (Auto) 91.6 H (45-73) % Lymph % (Auto) 1.8 L (20-40) % Lymph # (Auto) 0.2 L (1.2-4.9) X10*3/uL Abs Immat Gran (auto) 0.05 H (0.00-0.03) X10*3/uL Absolute Neuts (auto) 11.9 H (2.0-8.3) x10*3/uL Random Glucose 148 H (60-115) mg/dL H & H 05/12/23 Range/Units 22:53 Hgb 11.3 L (12.0-16.0) g/dl Hct 34.0 L (37.0-47.0) % All other labs normal. Assessment and Plan (1) Closed fracture of neck of left femur: Status: Acute I discussed the case with Dr. Stout and explained the extent of the injury to the patient and options available which include surgical intervention. I explained the procedure in detail along with the length of recovery and rehab course. I explained the risk, benefits and alternatives. Risk including, but not limited to infection, blood clots, bleeding, non union or malunion and nerve/tissue damage to surrounding areas. I answered all their questions and with their understanding they have consented to move forward with Operative Fixation of the left hip. The patient will be T&S, med clearance obtained and remain NPO. Quality Stroke Does the patient have a stroke diagnosis?: No VTE Prior VTE?: No VTE Risk Level:: Medical - moderate - high VTE Device Contraindication: N/A - Device Ordered VTE Drug Contraindication: N/A - Med Ordered Procedures Date of Service Date of Service: 05/13/23
--- NOTE | 2023-05-13 08:50 | PHA.MEDREC ---
Pharmacy Consult ? Medication Reconciliation Pharmacy has completed the medication reconciliation. Spoke to patient at bedside but she was very confused and unsure of where she was. She told me her son Nadeem helps with her medications, called him and he stated she's a hypochondriac, she takes everything but could not name vitamins/supplements. Used pharmacy claim history, pt stated she only uses [facility].
--- NOTE | 2023-05-13 12:13 | MHC.CM.PN ---
pt having a hip repair today would prefer to go homem when dc ready referral to hvns would consider str as a last resort
[2023-05-13] MEDS: HYDROmorphone HCl 0.5 MG/0.5 ML SYRINGE IVPUSH (12:48)
--- NOTE | 2023-05-13 13:47 | HO.PM.IMPN ---
Subjective Subjective Date of Service: 05/13/23 Interval History: seen and evaluated this morning reporting mild pain in hib denies any fever or chills no overnight events Review of Systems Review of Systems: Yes all other systems are reviewed and are negative Physical Exam Vital Signs: Vital Signs: Last Vital Signs Temp 97.7 F 05/13/23 07:45 Pulse 80 05/13/23 07:45 Resp 16 05/13/23 07:45 BP 150/67 H 05/13/23 07:45 Pulse Ox 93 05/13/23 07:45 O2 Del Method Room Air 05/13/23 07:45 BMI result Body Mass Index 28.2 Const: Other: Constitutional : Awake, interactive, not in distress Neck : Normal inspection, Supple Cardiovascular : RRR, no JVP, no lower extremity edema Respiratory : good bilateral air entry, no crackles, wheezes or rhonchi Gastrointestinal: soft, lax, Normal bowel sounds, Non tender Skin : Warm, Dry Skeletal: Left leg shorted and externally rotated Neurological : Alert & oriented x3, No focal deficit Objective Data Active Medications Amlodipine Besylate (Amlodipine Besylate 5 Mg Tablet) 5 mg PO DAILY DEBBIE; Protocol Last Admin: 05/13/23 09:46 Dose: Not Given Documented By: ERIC Non-Admin Reason: NPO Heparin Sodium (Porcine) (Heparin Sodium,Porcine 5,000 Unit/Ml Vial) 5,000 unit SUBCUT BID DEBBIE Hydromorphone HCl (Hydromorphone Hcl 0.5 Mg/0.5 Ml Syringe) 0.5 mg IVPUSH Q3H PRN; Protocol PRN Reason: Pain, Moderate(Pain Scale 4-6) Last Admin: 05/13/23 12:48 Dose: 0.5 mg Documented By: ERIC Lactated Ringer's (Lr) 1,000 mls @ 100 mls/hr IVCONT .Q10H DEB[facility] Last Infusion: 05/13/23 10:19 Dose: Infused Documented By: ERIC Pravastatin Sodium (Pravastatin Sodium 80 Mg Tablet) 80 mg PO BEDTIME [facility] Sodium Chloride (0.9 % Sodium Chloride Flush 3 Ml Syringe) 3 ml IVFLUSH QSHIFT [facility]BBI[facility] Last Admin: 05/13/23 07:30 Dose: Not Given Documented By: ERIC Non-Admin Reason: IV Running Labs 05/12/23 22:53 05/12/23 22:53 Labs: Laboratory Results - last 24 hr 05/12/23 05/13/23 22:53 01:29 MCV 87.6 MCH 29.1 MCHC 33.2 RDW 14.1 Plt Count 160 D MPV 11.2 Immature Gran % (Auto) 0.4 Neut % (Auto) 91.6 H Lymph % (Auto) 1.8 L [place] % (Auto) 5.9 Eos % (Auto) 0.0 Baso % (Auto) 0.3 Lymph # (Auto) 0.2 L [place] # (Auto) 0.8 Eos # (Auto) 0.0 Baso # (Auto) 0.0 Abs Immat Gran (auto) 0.05 H Absolute Neuts (auto) 11.9 H Absolute Nucleated RBC 0.000 Nucleated RBC % (auto) 0.0 Smear Tech's Comments VERIFIED Anion Gap 13 Estim Creat Clear Calc 40.5 Estimated GFR > 60 Random Glucose 148 H Calcium 9.1 D Total Bilirubin 0.5 AST 18 ALT 14 Alkaline Phosphatase 56 Total Protein 6.6 Albumin 3.7 Urine Color Yellow Urine Appearance Clear Urine pH 5.5 Ur Specific [place] 1.015 Urine Protein Negative Urine Glucose (UA) Negative Urine Ketones Trace Urine Blood Negative Urine Nitrite Negative Ur Leukocyte Esterase Negative Blood Type A Positive Antibody Screen NEGATIVE Assessment and Plan (1) Closed fracture of neck of left femur: Status: Acute (2) Anemia: Status: Acute Plan Lyudmila Wise is a 82 years old woman admitted with: # Left femoral neck fracture Pain control with Dilaudid and Tylenol as needed Orthopedic to do surgery today on IVF # Essential hypertension. Continue amlodipine. # Hyperlipidemia. Continue statin. # Mild anemia. monitor CBC, transfuse as needed DVT prophylaxis: Heparin subQ Code status: Full. Patient will need hospitalization overnight for left femoral neck fracture repair surgery and pain control Quality Stroke Does the patient have a stroke diagnosis?: No VTE Prior VTE?: No VTE Risk Level:: Medical - moderate - high VTE Device Contraindication: N/A - Device Ordered VTE Drug Contraindication: N/A - Med Ordered
--- NOTE | 2023-05-13 16:01 | P.CONAN_ITS ---
HPI - Anesthesia Eval Consult details Narrative: for left hemiarthroplasty PMFSH Active Problems Active Problems: All Active Problems (Updated 05/12/23 @ 22:39 by Amina Inman MD) Closed fracture of neck of left femur (Acute) Anemia (Acute) Vitamin D3 deficiency (Acute) Hyperlipidemia (Acute) Hypertension (Acute) Upper respiratory tract infection (Acute) Family History Family History Father No problems noted. Mother Hypertension Family history of problems with anesthesia: No Surgical History Surgical History History of hysterectomy History of Problems with Anesthesia: No Social History Social History Household Members: None Household Members Other:: single, lives alone, son lives near Housing: Assisted Living Facility Do you presently have visiting nurse or other home services: Yes Patient Tobacco Use Status: Never used Tobacco e-Cigarette/Vaping Use: Never Used Current occupational status: retired Cognitive needs: No Hearing needs: No Vision needs: Yes Meds Allergies Allergy/AdvReac Type Severity Reaction Status Date / Time No Known Allergies Allergy Verified 04/28/23 10:59 Active Medications: Current Medications Amlodipine Besylate (Amlodipine Besylate 5 Mg Tablet) 5 mg PO DAILY [facility]; Protocol Last Admin: 05/13/23 09:46 Dose: Not Given Heparin Sodium (Porcine) (Heparin Sodium,Porcine 5,000 Unit/Ml Vial) 5,000 unit SUBCUT BID [facility] Last Admin: 05/13/23 13:51 Dose: Not Given Hydromorphone HCl (Hydromorphone Hcl 0.5 Mg/0.5 Ml Syringe) 0.5 mg IVPUSH Q3H PRN; Protocol PRN Reason: Pain, Moderate(Pain Scale 4-6) Last Admin: 05/13/23 12:48 Dose: 0.5 mg Lactated Ringer's (Lr) 1,000 mls @ 100 mls/hr IVCONT .Q10H [facility] Last Infusion: 05/13/23 10:19 Dose: Infused Pravastatin Sodium (Pravastatin Sodium 80 Mg Tablet) 80 mg PO BEDTIME [facility] Sodium Chloride (0.9 % Sodium Chloride Flush 3 Ml Syringe) 3 ml IVFLUSH QSHIFT [facility] Last Admin: 05/13/23 07:30 Dose: Not Given Exam Height,Weight and Vital Signs: Height 5 ft Weight 65.6 kg Last Vital Signs Temp 97.5 F 05/13/23 15:38 Pulse 84 05/13/23 15:38 Resp 18 05/13/23 15:38 BP 167/77 H 05/13/23 15:38 Pulse Ox 92 05/13/23 15:38 O2 Del Method Room Air 05/13/23 15:38 Pertinent Lab Results Pertinent Lab Results: Laboratory Tests 05/12/23 05/13/23 22:53 01:29 WBC 13.0 H RBC 3.88 L Hgb 11.3 L Hct 34.0 L MCV 87.6 MCH 29.1 MCHC 33.2 RDW 14.1 Plt Count 160 D MPV 11.2 Immature Gran % (Auto) 0.4 Neut % (Auto) 91.6 H Lymph % (Auto) 1.8 L [place] % (Auto) 5.9 Eos % (Auto) 0.0 Baso % (Auto) 0.3 Lymph # (Auto) 0.2 L [place] # (Auto) 0.8 Eos # (Auto) 0.0 Baso # (Auto) 0.0 Abs Immat Gran (auto) 0.05 H Absolute Neuts (auto) 11.9 H Absolute Nucleated RBC 0.000 Nucleated RBC % (auto) 0.0 Smear Tech's Comments VERIFIED Sodium 136 Potassium 3.7 Chloride 105 Carbon Dioxide 22 Anion Gap 13 BUN 11 Creatinine 0.86 Estim Creat Clear Calc 40.5 Estimated GFR > 60 Random Glucose 148 H Calcium 9.1 D Total Bilirubin 0.5 AST 18 ALT 14 Alkaline Phosphatase 56 Total Protein 6.6 Albumin 3.7 Urine Color Yellow Urine Appearance Clear Urine pH 5.5 Ur Specific [place] 1.015 Urine Protein Negative Urine Glucose (UA) Negative Urine Ketones Trace Urine Blood Negative Urine Nitrite Negative Ur Leukocyte Esterase Negative Blood Type A Positive Antibody Screen NEGATIVE Airway Mallampati Class: II TM Dist: <=3cm Neck ROM: Full Heart: ok Lungs: ok Assessment and Plan Assessment Anesthesia Assessment: Anesthesia Plan Discussed Final Anesthetic Review Family History of Problems with Anesthesia: No History of Problems with Anesthesia: No NPO: Yes ASA Class: IV Final Preanesthetic Review: No Changes in Pt Med Stat, Meds/Allgs Chart Reviewe d, Consent Obtained/Reviewed and Anes Risks/Benef Reviewed Patient Risk: Intermediate Procedure Risk: Intermediate Anesthetic Plan Anesthetic Plan: Spinal and Agree w/ Assess. and Plan Disposition: Standard PACU
--- NOTE | 2023-05-13 18:54 | PM.OP ---
Brief Operative Note Date of Service: 05/13/23 Pre-op diagnosis: Left hip displaced femoral neck fracture Post-op diagnosis: same Procedure: Left hip cemented bipolar hemiarthroplasty Implants: [place] cemented bipolar hemiarthroplasty with an Accolade C femoral stem size 4 with a 132 degree neck-shaft angle, a distal centralizer size 12, cement plug size small, femoral head size 26 with a-3 mm neck, femoral shell size 44 Surgeon: Nathan Stout MD Anesthesia: spinal Was an Hydro Sprayer Operator used for this Procedure?: No Estimated blood loss (mL): 100 Pathology: other (Left femoral head) Condition: stable Disposition: PACU
--- NOTE | 2023-05-13 18:55 | P.OP_ITS ---
Operative Note Operative Note Date of Service: 05/13/23 Narrative: After the patient was identified as Lyudmila Wise and their left hip was initialed by myself the patient was brought to the operating room where spinal anesthesia and conscious sedation were performed by the anesthesiologist in routine fashion. The patient was given 2 g of IV Ancef for infection prophylaxis. The patient was then gently rolled into the lateral position. An axillary roll was put into place. All bony prominences were well padded. The patient's pelvis was held securely with hip bolsters. The patient's left hip region and lower extremity were prepped and draped in sterile fashion. A #10 scalpel blade was then used to make a curvilinear incision centered over the greater trochanter. The subcutaneous tissues were dissected using electrocautery down to the fascia stefany. The fascia stefany was then split in line with the skin incision using electrocautery. The split in the fascia stefany was curved posteriorly along its cephalad aspect to help prevent injury to the innervation of the tensor fascia stefany muscle. The patient's leg was gently externally rotated. A lateral Uribe approach was then taken down to the anterior joint capsule. The anterior half of the vastus lateralis was split 1 c m from its insertion and tagged with #2 Ethibond suture. The anterior 1/3 of the gluteus medius incision was then split using electrocautery and tagged with #2 Ethibond suture. An anterior capsulectomy was then performed using electrocautery. The femoral neck fracture was identified. The patient's lower extremity was gently externally rotated. The femoral neck cut was made 1 cm proximal to the lesser trochanter. The femoral head was then removed using a corkscrew. The femoral head measured to be a size 44. The trial size 44 femoral head was put into the acetabulum. The trial fit well. The trial was removed. The acetabulum was irrigated with copious amounts of normal saline solution via pulse lavage. The patient's leg was then placed into a sterile pouch along the anterior aspect of the surgical suite table. Soft tissues were retracted around the proximal femur. A box cutting osteotome was used to make a groove in the medial aspect of the greater trochanter. Broaching was begun with a size 0 press-fit broach. Broaching was increased up to a size 4 cemented broach. The size 4 broach fit well. The broach was removed. The distal centralizer was measured to be a size 12. A small cement plug was put into place. The intramedullary canal was irrigated with copious amounts of normal saline solution via pulse lavage while the cement was mixed. Once the cement reached a doughy state it was pressurized into the intramedullary canal. The final implant was put into place. Once the cement had hardened a trial size 44 shell with a -3 mm neck was put into place. The hip was reduced. Leg lengths were clinically equal. The hip was taken through a full range of motion. There was no instability. The hip was dislocated and the patient's leg was placed into the sterile pouch. The trial head was removed. The wound was irrigated with copious amounts of normal saline solution via pulse lavage. The final head and shell were impacted in the place. Leg lengths were clinically equal. Hip was taken through a full range of motion. There was no instability. The patient's leg was then placed onto a well-padded Jane stand. The wound was once again irrigated. The vastus lateralis and tensor fascia stefany tendons were repaired with #2 Ethibond [id number] interrupted suture. The wound was once again irrigated. The fascia stefany was closed with #2 Ethibond [id number] interrupted suture as well as #1 Vicryl [id number] interrupted suture. The wound was once again irrigated. The subcutaneous tissues were closed with 0 Vicryl and 2-0 Vicryl interrupted suture. The skin was closed with skin alden. Dry sterile dressing was placed over the incision. The patient was gently rolled into the supine position. The patient was awake and alert. The patient was transferred to the recovery room in stable condition.
[2023-05-13] MEDS: Pravastatin Sodium 80 MG TABLET PO (20:04)
[2023-05-13] MEDS: Aspirin 325 MG TABLET PO (20:04)
[2023-05-13] MEDS: Heparin Sodium,Porcine 5,000 UNIT/ML VIAL 5000 UNIT SUBCUT (22:51)
[2023-05-14] MEDS: ceFAZolin Sodium/Dextrose,Iso 2 GM/50 ML PIGGYBACK IV ×2 (01:56→10:38)
[2023-05-14 02:36] VITALS: BP 152/72; PULSE 85; RESP 18; TEMP 36.8; O2SAT 96
[2023-05-14] MEDS: Lactated Ringers 1,000 ML 100 ML IVCONT ×2 (05:09→14:50)
[2023-05-14 06:03] LABS: Mean Corpuscular Volume 88.6 fL (80.0-98.0); PLT CLUMP 1
[2023-05-14 06:05] LABS: Hematocrit 31.2 % (37.0-47.0); Hemoglobin 10.2 g/dl (12.0-16.0); Mean Corpuscular HGB Conc 32.7 g/dl (31.0-35.0); Mean Platelet Volume 12.6 fL (9.4-12.3); Red Blood Count 3.52 X10*6/uL (4.20-5.50); White Blood Count 6.6 X10*3/uL (4.8-10.8)
[2023-05-14 06:12] LABS: Anion Gap 11 (12-20); Blood Urea Nitrogen 9 mg/dL (9-16); Calcium 8.9 mg/dL (8.4-10.2); Carbon Dioxide 25 mmol/L (22-29); Chloride 104 mmol/L (96-108); Creatinine Clr Calc Pharmacy 44.2; Estimated Glomerular Filt Rate > 60; Glucose Random 108 mg/dL (60-115); Potassium 3.2 mmol/L (3.3-5.1); Sodium 137 mmol/L (135-145)
[2023-05-14 07:29] VITALS: BP 167/73; PULSE 90; RESP 16; TEMP 36.9; O2SAT 94
[2023-05-14] MEDS: Heparin Sodium,Porcine 5,000 UNIT/ML VIAL 5000 UNIT SUBCUT (08:38)
[2023-05-14] MEDS: amLODIPine Besylate 5 MG TABLET PO (08:38)
[2023-05-14] MEDS: Aspirin 325 MG TABLET PO ×2 (08:38→19:51)
[2023-05-14] MEDS: Potassium Chloride Packet 20 MEQ PACKET PO (08:38)
--- NOTE | 2023-05-14 10:56 | P.PNIM_ITS ---
Subjective Subjective Date of Service: 05/14/23 Interval History: seen and evaluated this morning mild pain in hib post Op denies any fever or chills no overnight events Review of Systems Review of Systems: Yes all other systems are reviewed and are negative Physical Exam 2 Vital Signs: Vital Signs: Last Vital Signs Temp 98.5 F 05/14/23 07:29 Pulse 90 05/14/23 07:29 Resp 16 05/14/23 07:29 BP 167/73 H 05/14/23 07:29 Pulse Ox 94 05/14/23 07:29 O2 Del Method Room Air 05/14/23 07:29 O2 Flow Rate 2 05/14/23 02:36 BMI result Body Mass Index 28.2 Const: Other: Constitutional : Awake, interactive, not in distress Neck : Normal inspection, Supple Cardiovascular : RRR, no JVP, no lower extremity edema Respiratory : good bilateral air entry, no crackles, wheezes or rhonchi Gastrointestinal: soft, lax, Normal bowel sounds, Non tender Skin : Warm, Dry Skeletal: Left leg in dressing, normal sensation Neurological : Alert & oriented x3, No focal deficit Objective Data Active Medications Amlodipine Besylate (Amlodipine Besylate 5 Mg Tablet) 5 mg PO DAILY [facility]; Protocol Last Admin: 05/14/23 08:38 Dose: 5 mg Documented By: DAIN Aspirin (Aspirin 325 Mg Tablet) 325 mg PO BID [facility] Last Admin: 05/14/23 08:38 Dose: 325 mg Documented By: DAIN Fentanyl (Fentanyl Citrate/Pf 100 Mcg/2 Ml Vial) 25 mcg IVPUSH Q5M PRN; Protocol PRN Reason: Pain, Moderate(Pain Scale 4-6) Heparin Sodium (Porcine) (Heparin Sodium,Porcine 5,000 Unit/Ml Vial) 5,000 unit SUBCUT BID [facility] Last Admin: 05/14/23 08:38 Dose: 5,000 unit Documented By: DAIN Hydromorphone HCl (Hydromorphone Hcl 0.5 Mg/0.5 Ml Syringe) 0.5 mg IVPUSH Q3H PRN; Protocol PRN Reason: Pain, Moderate(Pain Scale 4-6) Last Admin: 05/13/23 12:48 Dose: 0.5 mg Documented By: ERIC Lactated Ringer's (Lr) 1,000 mls @ 100 mls/hr IVCONT .Q10H [facility] Last Admin: 05/14/23 05:09 Dose: 100 mls/hr Documented By: MACK Ondansetron HCl (Ondansetron Hcl 4 Mg/2 Ml Vial) 4 mg IVPUSH ONCE PRN PRN Reason: Nausea and Vomiting Pravastatin Sodium (Pravastatin Sodium 80 Mg Tablet) 80 mg PO BEDTIME [facility] Last Admin: 05/13/23 20:04 Dose: 80 mg Documented By: MACK Sodium Chloride (0.9 % Sodium Chloride Flush 3 Ml Syringe) 3 ml IVFLUSH QSOHFT [facility] Last Admin: 05/14/23 07:05 Dose: Not Given Documented By: DAIN Non-Admin Reason: IV Running Sodium Chloride (0.9 % Sodium Chloride Flush 3 Ml Syringe) 3 ml IVFLUSH QSOHFT [facility] Last Admin: 05/14/23 07:05 Dose: Not Given Documented By: DAIN Non-Admin Reason: Duplicate Order Labs 05/14/23 05:16 05/14/23 05:16 Labs: Laboratory Results - last 24 hr 05/14/23 05:16 MCV 88.6 MCH 29.0 MCHC 32.7 RDW 14.0 Plt Count MPV 12.6 H Absolute Nucleated RBC 0.000 Nucleated RBC % (auto) 0.0 Anion Gap 11 L Estim Creat Clear Calc 44.2 Estimated GFR > 60 Random Glucose 108 Calcium 8.9 Assessment and Plan (1) Closed fracture of neck of left femur: Status: Acute Plan Lyudmila Wise is a 82 years old woman admitted with: # Left femoral neck fracture POD 1 Pain control with Dilaudid and Tylenol as needed Orthopedic following DC IVF start PT DC Linda # Acute hypokalemia replacement given # Essential hypertension. Continue amlodipine. # Hyperlipidemia. Continue statin. # Mild anemia. monitor CBC, transfuse as needed DVT prophylaxis: Heparin subQ Code status: Full. Patient will need hospitalization overnight for left femoral neck fracture repair surgery and pain control Quality Stroke Does the patient have a stroke diagnosis?: No VTE Prior VTE?: No VTE Risk Level:: Medical - moderate - high VTE Device Contraindication: N/A - Device Ordered VTE Drug Contraindication: N/A - Med Ordered
[2023-05-14 11:53] VITALS: BP 167/73; PULSE 90; O2SAT 94
--- NOTE | 2023-05-14 13:22 | PC.NURSE ---
patient already on scheduled subq heparin BID when lovenox 40mg subq Q24hr order was placed, t/w reached out to ordering provider for clarification on whether they need both antithrombin therapies, waiting for provider to answer
--- NOTE | 2023-05-14 15:00 | HO.POSTANES ---
Post Anesthesia Evaluation Post Anesthesia Evaluation Date of Service: 05/14/23 Vital Signs: Vital Signs Temp Pulse Resp BP Pulse Ox O2 Del Method 05/14/23 11:53 90 167/73 H 94 05/14/23 07:29 98.5 F 90 16 167/73 H 94 Room Air Anesthesia: Spinal Mental Status: Awake Pain Control: Satisfactory Nausea/Vomiting: None Hydration: Adequate Anesthesia-Related Issues: No Anes. Related Issues
--- NOTE | 2023-05-14 15:36 | PC.NURSE ---
carl catheter removed at 1445, pt tolerated well and is dtv by 2044
[2023-05-14 15:46] VITALS: BP 144/68; PULSE 97; RESP 16; O2SAT 97
--- NOTE | 2023-05-14 16:00 | PM.PNORT ---
Subjective Subjective Date of Service: 05/14/23 Interval history: POD1 s/p Lef hip tianna Patient is resting in the recliner comfortably No overnight events Pain is managed No additional complaints Nursing and [employer] HELPER at bedside moving patient to a room closer to the nurses station - patient has been getting up and out of bed without assistance multiple times Physical Exam Vital Signs: Vital Signs: Last Vital Signs Temp 98.5 F 05/14/23 07:29 Pulse 97 05/14/23 15:46 Resp 16 05/14/23 15:46 BP 144/68 H 05/14/23 15:46 Pulse Ox 97 05/14/23 15:46 O2 Del Method Room Air 05/14/23 15:46 O2 Flow Rate 2 05/14/23 02:36 BMI result Body Mass Index 28.2 Const: General: cooperative, healthy appearing and no acute distress Resp: Effort & Inspection: normal respiratory effort and able to speak in complete sentences Cardio: Rate: regular rate Peripheral pulses: Peripheral pulses 2+ throughout GI: Palpation (GI): Soft to palpation Skin: Lesions: no lesions Rashes: no rashes Extrem: Other: Left hip Dressing is c/d/i. Able to dorsi/plantar flex. Calf is supple and nontender. Sensation intact. Pedal pulse intact. Procedures Date of Service Date of Service: 05/14/23 Progress Note: A&P Assessment and plan (1) Closed fracture of neck of left femur: Status: Acute Plan Continue pain mgmnt Begin Lovenox for dvt ppx begin PT/OT for left hip hemiarthroplasty - Posterior precautions Dispo planning-PT, pain mgmnt, d/c to rehab once medically cleared Time Spent With Patient Time: Total time managing care of this patient today ____ minutes. Quality Stroke Does the patient have a stroke diagnosis?: No VTE Prior VTE?: No VTE Risk Level:: Medical - moderate - high VTE Device Contraindication: N/A - Device Ordered VTE Drug Contraindication: N/A - Med Ordered
[2023-05-14] MEDS: Enoxaparin Sodium 40 MG/0.4 ML SYRINGE SUBCUT (17:22)
[2023-05-14 19:45] VITALS: BP 135/63; PULSE 104; RESP 18; TEMP 36.7; O2SAT 95
[2023-05-14] MEDS: Pravastatin Sodium 80 MG TABLET PO (19:51)
[2023-05-14] MEDS: HYDROmorphone HCl 0.5 MG/0.5 ML SYRINGE IVPUSH (19:52)
[2023-05-15] MEDS: HYDROmorphone HCl 0.5 MG/0.5 ML SYRINGE IVPUSH (03:50)
[2023-05-15 03:56] VITALS: BP 169/74; PULSE 86; RESP 18; TEMP 36.5; O2SAT 92
[2023-05-15 06:54] LABS: Hematocrit 29.2 % (37.0-47.0); Hemoglobin 9.8 g/dl (12.0-16.0); Mean Corpuscular HGB Conc 33.6 g/dl (31.0-35.0); Mean Corpuscular Volume 89.3 fL (80.0-98.0); Mean Platelet Volume 12.7 fL (9.4-12.3); Red Blood Count 3.27 X10*6/uL (4.20-5.50); Red Cell Distribution Width 13.9 % (11.0-16.0); White Blood Count 5.8 X10*3/uL (4.8-10.8)
[2023-05-15 07:12] LABS: Anion Gap 12 (12-20); Blood Urea Nitrogen 9 mg/dL (9-16); Calcium 8.4 mg/dL (8.4-10.2); Carbon Dioxide 26 mmol/L (22-29); Chloride 104 mmol/L (96-108); Creatinine Clr Calc Pharmacy 45.3; Estimated Glomerular Filt Rate > 60; Glucose Random 95 mg/dL (60-115); Potassium 3.2 mmol/L (3.3-5.1); Sodium 139 mmol/L (135-145)
[2023-05-15 07:22] LABS: Platelet Count 114 X10*3/uL (160-400)
[2023-05-15 07:23] VITALS: BP 140/97; PULSE 91; RESP 16; TEMP 36.6; O2SAT 95
--- NOTE | 2023-05-15 07:27 | PM.PNORT ---
Subjective Subjective Date of Service: 05/15/23 Interval history: POD1 s/p Lef hip tianna Patient is resting in bed comfortably No overnight events Pain is managed No additional complaints She has been moved closer to the nurses station for closer observation because she has gotten out of bed unassisted multiple times Physical Exam Vital Signs: Vital Signs: Last Vital Signs Temp 97.8 F 05/15/23 07:23 Pulse 91 05/15/23 07:23 Resp 16 05/15/23 07:23 BP 140/97 H 05/15/23 07:23 Pulse Ox 95 05/15/23 07:23 O2 Del Method Room Air 05/15/23 07:23 O2 Flow Rate 2 05/14/23 02:36 BMI result Body Mass Index 28.2 Const: General: cooperative, healthy appearing and no acute distress Resp: Effort & Inspection: normal respiratory effort and able to speak in complete sentences Cardio: Rate: regular rate Peripheral pulses: Peripheral pulses 2+ throughout GI: Palpation (GI): Soft to palpation Skin: Lesions: no lesions Rashes: no rashes Extrem: Other: Left hip Dressing is c/d/i. Able to dorsi/plantar flex. Calf is supple and nontender. Sensation intact. Pedal pulse intact. Procedures Date of Service Date of Service: 05/15/23 Progress Note: A&P Assessment and plan (1) Closed fracture of neck of left femur: Status: Acute Plan Continue pain mgmnt Continue Lovenox for dvt ppx Contnue PT/OT for left hip hemiarthroplasty - Posterior precautions Dispo planning-PT, pain mgmnt, d/c to rehab once medically cleared Time Spent With Patient Time: Total time managing care of this patient today ____ minutes. Quality Stroke Does the patient have a stroke diagnosis?: No VTE Prior VTE?: No VTE Risk Level:: Medical - moderate - high VTE Device Contraindication: N/A - Device Ordered VTE Drug Contraindication: N/A - Med Ordered
--- NOTE | 2023-05-15 07:57 | P.CDIM_ITS ---
PROVIDER RESPONSE TEXT: To clarify, the appropriate diagnosis supported by the clinical indicators: Acute blood loss anemia with baseline chronic anemia: PAPI QUERY TEXT: PHYSICIAN'S DOCUMENTATION REQUEST Date of Query: 05/14/2023 12:40 PM EST Patient Name: Lyudmila Wise Admit Date: 05/13/2023 Dear Chidi Trinh, A review of the medical record indicates additional documentation may be needed. Please review below and update the documentation accordingly. Clinical Indicators: Per Hospitalist Progress Note 05/14/23: Mild anemia. monitor CBC, transfuse as needed H&H on 05/12/23: 11.3/34.0 H&H on 05/14/23: 10.2/31.2 OR on 05/13/23 for Left hip cemented bipolar hemiarthroplasty due to left hip displaced femoral neck f racture Based on the above, could you clarify which of the following is the most likely type of anemia you ar e evaluating, treating, and/or monitoring? Acute blood loss anemia Acute blood loss anemia with baseline chronic anemia (specify type) Anemia of chronic disease indicate if neoplastic disease, CKD, or other Chronic iron deficiency anemia due to blood loss Vitamin B12 deficiency anemia indicate etiology, such as intrinsic factor deficiency, malabsorption, transcobalamin II deficiency, dietary, etc Folate deficiency anemia indicate etiology, such as dietary, drug-induced, etc Protein deficiency anemia Other (explain) Clinically unable to determine (explain) Thank you, Sharlene Vasquez RN Use of terms such as suspected, likely, concern for, or probable (associated with a specific diagnosi s that is being evaluated, monitored, or treated as if it exists) are acceptable and can be coded in the inpatient se tting, when documented at the time of discharge. Please use your independent medical judgment in providing your response. THIS QUERY IS PART OF THE PERMANENT MEDICAL RECORD
[2023-05-15 08:19] VITALS: PULSE 91; O2SAT 95
[2023-05-15] MEDS: Potassium Chloride Packet 20 MEQ PACKET 40 MEQ PO (08:36)
[2023-05-15] MEDS: Aspirin 325 MG TABLET PO (08:37)
[2023-05-15] MEDS: amLODIPine Besylate 5 MG TABLET PO (08:37)
[2023-05-15] MEDS: 0.9 % Sodium Chloride Flush 3 ML SYRINGE IVFLUSH ×2 (08:37→16:07)
--- NOTE | 2023-05-15 13:26 | P.PNIM_ITS ---
Subjective Subjective Date of Service: 05/15/23 Interval History: seen and evaluated this morning feels much better denies any fever or chills no overnight events Review of Systems Review of Systems: Yes all other systems are reviewed and are negative Physical Exam 2 Vital Signs: Vital Signs: Last Vital Signs Temp 97.8 F 05/15/23 07:23 Pulse 91 05/15/23 08:19 Resp 16 05/15/23 07:23 BP 140/97 H 05/15/23 07:23 Pulse Ox 95 05/15/23 08:19 O2 Del Method Room Air 05/15/23 07:23 O2 Flow Rate 2 05/14/23 02:36 BMI result Body Mass Index 28.2 Const: Other: Constitutional : Awake, interactive, not in distress Neck : Normal inspection, Supple Cardiovascular : RRR, no JVP, no lower extremity edema Respiratory : good bilateral air entry, no crackles, wheezes or rhonchi Gastrointestinal: soft, lax, Normal bowel sounds, Non tender Skin : Warm, Dry Skeletal: Left leg in dressing, normal sensation Neurological : Alert & oriented x3, No focal deficit Objective Data Active Medications Amlodipine Besylate (Amlodipine Besylate 5 Mg Tablet) 5 mg PO DAILY [facility]; Protocol Last Admin: 05/15/23 08:37 Dose: 5 mg Documented By: DAIN Aspirin (Aspirin 325 Mg Tablet) 325 mg PO BID [facility] Last Admin: 05/15/23 08:37 Dose: 325 mg Documented By: DAIN Enoxaparin Sodium (Enoxaparin Sodium 40 Mg/0.4 Ml Syringe) 40 mg SUBCUT Q24H [facility] Last Admin: 05/14/23 17:22 Dose: 40 mg Documented By: DAIN Fentanyl (Fentanyl Citrate/Pf 100 Mcg/2 Ml Vial) 25 mcg IVPUSH Q5M PRN; Protocol PRN Reason: Pain, Moderate(Pain Scale 4-6) Hydromorphone HCl (Hydromorphone Hcl 0.5 Mg/0.5 Ml Syringe) 0.5 mg IVPUSH Q3H PRN; Protocol PRN Reason: Pain, Moderate(Pain Scale 4-6) Last Admin: 05/15/23 03:50 Dose: 0.5 mg Documented By: MACK Ondansetron HCl (Ondansetron Hcl 4 Mg/2 Ml Vial) 4 mg IVPUSH ONCE PRN PRN Reason: Nausea and Vomiting Pravastatin Sodium (Pravastatin Sodium 80 Mg Tablet) 80 mg PO BEDTIME [facility] Last Admin: 05/14/23 19:51 Dose: 80 mg Documented By: MACK Sodium Chloride (0.9 % Sodium Chloride Flush 3 Ml Syringe) [facility] Last Admin: 05/15/23 08:37 Dose: 3 ml Documented By: DAIN Sodium Chloride (0.9 % Sodium Chloride Flush 3 Ml Syringe) 3 ml IVFLUSH [facility] Last Admin: 05/15/23 06:59 Dose: Not Given Documented By: DAIN Non-Admin Reason: Duplicate Order Labs 05/15/23 05:40 05/15/23 05:40 Labs: Laboratory Results - last 24 hr 05/14/23 05/15/23 05:16 05:40 MCV 89.3 MCH 30.0 MCHC 33.6 RDW 13.9 Plt Count TNP 114 L D MPV 12.7 H Absolute Nucleated RBC 0.000 Nucleated RBC % (auto) 0.0 Anion Gap 12 Estim Creat Clear Calc 45.3 Estimated GFR > 60 Random Glucose 95 Calcium 8.4 Assessment and Plan (1) Closed fracture of neck of left femur: Status: Acute Plan Lyudmila Wise is a 82 years old woman admitted with: # Left femoral neck fracture POD 2 Pain control with Dilaudid and Tylenol as needed Orthopedic rec follow up as outpatient for wound check in 2 weeks PT rec STR DC Linda # Acute hypokalemia replacement given # Essential hypertension. Continue amlodipine. # Hyperlipidemia. Continue statin. # Mild anemia. monitor CBC, transfuse as needed DVT prophylaxis: Heparin subQ Code status: Full. Patient will need hospitalization overnight for pain control pending nursing facility acceptance Quality Stroke Does the patient have a stroke diagnosis?: No VTE Prior VTE?: No VTE Risk Level:: Medical - moderate - high VTE Device Contraindication: N/A - Device Ordered VTE Drug Contraindication: N/A - Med Ordered
--- NOTE | 2023-05-15 14:24 | P.DS_ITS ---
DS: Providers Provider Date of Service: 05/15/23 Date of admission: 05/12/23 23:51 Primary care physician: Brittney Marie MD DS: Diagnosis Discharge Diagnosis (1) Closed fracture of neck of left femur: Status: Acute (2) Anemia: Status: Acute (3) Acute hypokalemia: Status: Acute DS: Summary Hospital Course Hospital Course: Admission note HPI Lyudmila Wise is 82 years old woman with past medical history significant for hypertension and hyperlipidemia after she seems to have full. She slipped on the ice and landed on her left hip. She was unable to stand up after falling. She denies head trauma. She denied any symptoms such as dizziness, headache, shortness of breath or chest pain. She also denied nausea, vomiting or diarrhea. There is no fever or chills reported. Patient denied tobacco smoking, alcohol abuse or illicit drug use. She does not take aspirin or anticoagulants. In the ED, she was found to have stable vital signs. Last blood pressure is elevated, 162/94. Blood workup was remarkable for leukocytosis. This mild anemia of 11.3. There are no significant electrolyte imbalances. Renal function is normal. Hospital course The patient was admitted for surgical correction of Left femoral neck fracture. She was seen by orthopedics who did hemiarthroplasty with good response Pain control with Dilaudid and Tylenol as needed Orthopedic rec follow up as outpatient for wound check in 2 weeks PT rec STR DC Linda For acute hypokalemia replacement orally given For Anemia, hemoglobin dropped after surgery with no evidence of bleeding. likely related to surgical loss and dilution. remained above transfusion threshold. did no require transfusion. Omeprazole for stomach protection Lovenox for 4 weeks for DVT prevention Oxycodone as needed for pain To follow with orthopedics as outpatient in 2 weeks Time Attestation Discharge coordination time: Greater than 30 minutes Quality: Safe Use of Opioids Does Pt have an Active Cancer Diagnosis on the Problem List?: No Quality: Stroke Does the patient have a stroke diagnosis?: No Physical Exam Vital Signs: Vital Signs: Last Vital Signs Temp 97.8 F 05/15/23 07:23 Pulse 91 05/15/23 08:19 Resp 16 05/15/23 07:23 BP 140/97 H 05/15/23 07:23 Pulse Ox 95 05/15/23 08:19 O2 Del Method Room Air 05/15/23 07:23 O2 Flow Rate 2 05/14/23 02:36 BMI result Body Mass Index 28.2 DS: Data Data Completed and Pending Pending studies at discharge: Pending at discharge 05/13/23 18:21 Surgical [PTH] Routine Labs on day of discharge: Laboratory Results - last 24 hr 05/14/23 05/15/23 05:16 05:40 WBC 5.8 RBC 3.27 L Hgb 9.8 L Hct 29.2 L MCV 89.3 MCH 30.0 MCHC 33.6 RDW 13.9 Plt Count TNP 114 L D MPV 12.7 H Absolute Nucleated RBC 0.000 Nucleated RBC % (auto) 0.0 Sodium 139 Potassium 3.2 L Chloride 104 Carbon Dioxide 26 Anion Gap 12 BUN 9 Creatinine 0.78 Estim Creat Clear Calc 45.3 Estimated GFR > 60 Random Glucose 95 Calcium 8.4 Discharge Plan Discharge Anticipated Discharge Date/Time: 05/15/23 14:19 Patient Disposition: Xfer SNF Discharge Diagnosis: Left [facility] Brittney Marie MD [Primary Care Provider] - 1 Week Discharge Medications: New enoxaparin 40 mg/0.4 mL Syringe 40 mg subcut Q24H 28 Days Qty: 11.2 0RF oxycodone 5 mg tablet 5 mg PO Q6H PRN (Reason: pain (scale score 7-10)) Qty: 14 0RF Rx Instructions: Partial Fill upon patient request. omeprazole 20 mg capsule,delayed release(DR/EC) 20 mg PO DAILY Qty: 30 0RF Continued amlodipine-benazepril 5-10 mg capsule 1 cap PO DAILY Qty: 90 3RF pravastatin 80 mg tablet 80 mg PO DAILY Qty: 90 3RF folic acid 1 mg tablet 1 mg PO DAILY Qty: 90 3RF cholecalciferol (vitamin D3) 50 mcg (2,000 unit) tablet 50 mcg PO DAILY Qty: 90 3RF Discharge Orders: Discharge Order (Routine); Ordered 05/15/23 Ordered By: Chidi Trinh Diet: Advance to usual diet Activity on Discharge: As tolerated Stand Alone Forms: Patient Portal Discharge page Care Plan Goals: Read below Health Concerns: Read below Plan of Treatment: Read below Assessment: You were treated for left femur fracture with surgical intervention with good response as you were able to participate with physical therapy who recommended short term rehab. Omeprazole for stomach protection Lovenox for 4 weeks for DVT prevention Oxycodone as needed for pain To follow with orthopedics as outpatient in 2 weeks Discharge Date/Time: 05/15/23 18:16
[2023-05-15 15:32] VITALS: BP 110/63; PULSE 82; RESP 18; TEMP 37; O2SAT 96
--- NOTE | 2023-05-15 15:42 | MHC.CM.PN ---
Addendum entered by Karine Hylton 05/15/23 16:24: CM RECEIVED A RETURN CALL FROM PTS SON WHO UNDERSTANDS AND AGREES WITH DC PLANS HE ASKED THAT CM CALL HIS NEPHEW, JONY THAKKAR [phone] CM CALLED JONY AND REVIEWED DC PLANS, HE IS ALSO IN AGREEMENT WITH PLAN AND ASKS THAT HIS CONTACT INFO BE FORWARDED TO SNF BOTH KATY AND ELY INFORMATION WAS SENT TO [facility] WITH REFERRAL Original Note: HUBER MET WITH PT SEVERAL TIMES THROUGHOUT THE DAY TO DISCUSS DC PLANNING PT AWARE SHE NEEDS TO GO TO STR SHE SAYS SHE WOULD LIKE TO STAY CLOSE TO HOME BED OFFERS REVIEWED AND SHE INDICATED SHE WOULD PREFER [facility] THEY CAN ACCEPT PT TODAY AT 1700 HOURS BLS TRANSPORT SCHEDULED VIA [employer] CM DID ATTEMPT TO REACH PTS SON, KATY [phone] MESSAGE LEFT WITH DC INFORMATION
[2023-05-15] MEDS: Enoxaparin Sodium 40 MG/0.4 ML SYRINGE SUBCUT (16:07)
== END 2023-05-15 18:16 | disposition skilled nursing facility (03) | DRG 522 ==
LOC: HO.ED 05-13 00:11 → HO.EDOVER 05-13 00:14 → HO.S3 05-13 04:17
PROVIDERS: Orthopaedic Surgery; Admitting Provider Internal Medicine; Emergency Provider Student in an Organized Health Care Education/Training Program; PCP Internal Medicine; Visit Provider Student in an Organized Health Care Education/Training Program
PROC: 0SRS0J9 Replacement of Left Hip Joint, Femoral Surface with Synthetic Substitute, Cemented, Open Approach (ICD-10-PCS; CPT 27125; principal; 2023-05-13 13:50)
DX: S72.002A Fracture of unspecified part of neck of left femur, initial encounter for closed fracture (principal); D62 Acute posthemorrhagic anemia; E87.6 Hypokalemia; I10 Essential (primary) hypertension; E78.5 Hyperlipidemia, unspecified; D50.9 Iron deficiency anemia, unspecified; W19.XXXA Unspecified fall, initial encounter; Z79.899 Other long term (current) drug therapy
CPT/HCPCS: 36415; 71045; 72170; 73502; 73560; 73600; 80048; 80053; 81003; 85025; 85027; 86850; 86900; 86901; 88305; 88311; 93005; 97162; 97166; 97530; 99024; 99285; C1713; C1758; C1776; J0665; J0690; J1170; J1644; J1650; J1885; J2704; J2795; J3010; J3370; J7120

== ENCOUNTER → 2023-05-12 23:51 | Outpatient (BNV) | payer MEDICARE, SELFPAY | PROVIDERS: Admitting Provider Internal Medicine; Emergency Provider Student in an Organized Health Care Education/Training Program; PCP Internal Medicine; Visit Provider Internal Medicine | DX: D64.9 Anemia, unspecified (principal); I10 Essential (primary) hypertension; S72.002A Fracture of unspecified part of neck of left femur, initial encounter for closed fracture | CPT/HCPCS: 99223; 99232; 99239; 99499 ==

== ENCOUNTER → 2023-05-12 23:51 | Outpatient (BNV) | payer MEDICARE, SELFPAY | PROVIDERS: Admitting Provider Internal Medicine; Emergency Provider Student in an Organized Health Care Education/Training Program; PCP Internal Medicine; Visit Provider Internal Medicine Cardiovascular Disease | DX: I49.1 Atrial premature depolarization (principal) | CPT/HCPCS: 93010 ==

== ENCOUNTER → 2023-05-12 23:51 | Outpatient (BNV) | payer MEDICARE, SELFPAY | PROVIDERS: Admitting Provider Internal Medicine; Emergency Provider Student in an Organized Health Care Education/Training Program; PCP Internal Medicine; Visit Provider Physician Assistant | DX: S72.002A Fracture of unspecified part of neck of left femur, initial encounter for closed fracture (principal) | CPT/HCPCS: 27236; 99222 ==

== ENCOUNTER 2023-05-27 07:27 | Outpatient (REF) | payer MEDICARE, SELFPAY ==
--- NOTE | ~2023-05-27 | XR_ITS ---
EXAMINATION: XR HIP, LEFT CLINICAL INFORMATION: Pain in left hip COMPARISON: AP pelvis 05/13/2023 TECHNIQUE: Two views of the left hip. FINDINGS: There is a left total hip prosthesis with cemented femoral component in satisfactory alignment. No fracture. Surgical skin alden are seen along the left hip. Surgical clips are seen in within pelvis, as before. The visualized portions of the pelvis and right hip are unremarkable. XR/XR hip LT min 2V IMPRESSION: Left total hip prosthesis in satisfactory alignment.
== END 2023-05-27 07:28 | disposition home or self-care (01) ==
LOC: HO.HOSX 07:27
PROVIDERS: Visit Provider Orthopaedic Surgery
DX: M25.552 Pain in left hip (principal)
CPT/HCPCS: 73502; 99212

== ENCOUNTER 2023-05-27 11:34 | Outpatient (AMB) | payer MEDICARE, SELFPAY ==
--- NOTE | 2023-05-27 11:45 | A.OFFVIS_ITS ---
Intake Intake Visit Reasons: p.o - Left Hip Fracture DOS 05/13/23 DR Gonzalez Note: Lyudmila is a 82 year old female who presents for her post operative appointment s/p Left hip fracture DOS 05/13/2023 Patient reports that she is doing well and has no concerns. He denies any fevers or chills. She continues weight- bearing as tolerated. Allergies No Known Allergies Allergy (Verified 05/27/23 11:48) Medication List - Last Reconciled 05/27/23 by Nathan Stout MD amlodipine-benazepril 5-10 mg 1 cap PO DAILY cholecalciferol (vitamin D3) 50 mcg PO DAILY enoxaparin 40 mg (0.4 mL) subcut Q24H 28 days folic acid 1 mg PO DAILY omeprazole 20 mg PO DAILY oxycodone 5 mg PO Q6H PRN pravastatin 80 mg PO DAILY PFSH Medical History Anemia Hypertension Surgical History History of hysterectomy Family History Father No problems noted. Mother Hypertension Social History Household Members: None Household Members Other:: single, lives alone, son lives near Housing: Assisted Living Facility Do you presently have visiting nurse or other home services: Yes Patient Tobacco Use Status: Never used Tobacco e-Cigarette/Vaping Use: Never Used Current occupational status: retired Cognitive needs: No Hearing needs: No Vision needs: Yes Physical Exam Extrem Other: Left hip examination shows that the surgical incision is healing well, no erythema, minimal discomfort with range of motion Results Reviewed Results Reviewed: X-rays of the patient's left hip taken today show a cemented hemiarthroplasty in good position with no signs of loosening, no acute bony abnormalities Assessment & Plan Assessment & Plan (1) Left hip pain: Code(s): M25.552 - Pain in left hip Plan Ms. Wise continues to do well after undergoing left hip hemiarthroplasty surgery on 05/13/2023. Her alden were removed and Steri-Strips placed over her incision. She can continue activities as tolerated. She will contact me prior to her follow-up appointment in 2 months should any questions or concerns arise. Feel free to call me at any time should questions regarding her orthopedic management arise. Orders: Orders XR hip LT min 2V Today M25.552 - Pain in left hip Coding Level of Care Code Est Pt Level 2 (22362) Diagnoses Left hip pain M25.552
== END 2023-05-27 12:02 | disposition home or self-care (01) ==
PROVIDERS: PCP Internal Medicine; Visit Provider Orthopaedic Surgery
DX: S72.002D Fracture of unspecified part of neck of left femur, subsequent encounter for closed fracture with routine healing (principal)
CPT/HCPCS: 99024

== ENCOUNTER 2023-06-01 09:23 | Outpatient (AMB) | payer MEDICARE, SELFPAY ==
--- NOTE | 2023-06-01 09:28 | MHC.PC.OV ---
Vital Signs 06/01/23 09:32 Height 5 ft 2 in Weight 135 lb BMI 24.7 BP 118/66 Blood Pressure Location Lt brachial Position Sitting Pulse 82 Pulse Source Pulse Oximeter Pulse Oximetry (%) 98 Oxygen Delivery Method Room Air Intake [facility]-Fall/Hip Injury Allergies No Known Allergies Allergy (Verified 06/01/23 09:36) Medication List - Last Reconciled 06/01/23 by Brittney Marie MD acetaminophen (Tylenol Extra Strength) 975 mg PO TID PRN amlodipine-benazepril 5-10 mg 1 cap PO DAILY cholecalciferol (vitamin D3) 50 mcg PO DAILY enoxaparin 40 mg (0.4 mL) subcut Q24H 28 days folic acid 1 mg PO DAILY omeprazole 20 mg PO DAILY pravastatin 80 mg PO DAILY Tobacco use date assessed: 04/28/23 HPI [facility] 05/28/23-Fall/Hip Injury HPI Details Patient presents for the follow-up of hospitalization an inpatient rehab stay for left hip arthroplasty after fall. Pt is ambulating with a walker and getting VNA service. HTN and hyperlipid, stable on meds PFSH Medical History Anemia Hypertension Surgical History (Updated 06/01/23 @ 11:16 by Brittney Marie MD) History of hysterectomy Family History Father No problems noted. Mother Hypertension Social History Household Members: None Household Members Other:: single, lives alone, son lives near Housing: Assisted Living Facility Do you presently have visiting nurse or other home services: Yes Patient Tobacco Use Status: Never used Tobacco e-Cigarette/Vaping Use: Never Used Current occupational status: retired Cognitive needs: No Hearing needs: No Vision needs: Yes Questionnaire Thrive Questionnaire Date Thrive assessed: 05/13/23 BEBE-7 AMB Questionnaire BEBE-7 Date BEBE - 7 assessed: 04/28/23 Source: Developed by Drs. Calvin Meeks, Alexandra Peterson, Kenn Kincaid and colleagues, with an educational clem from [employer]. Review of Systems Const All systems reviewed & are unremarkable except as noted in HPI and below Reports no additional complaints Eyes Reports no additional complaints ENT Reports no additional complaints Card Reports no additional complaints Resp Reports no additional complaints GI Reports no additional complaints Reports no additional complaints Physical exam (Primary Care) Vital Signs: Last Vital Signs Pulse 82 06/01/23 09:32 BP 118/66 06/01/23 09:32 Pulse Ox 98 06/01/23 09:32 Oxygen Delivery Method Room Air 06/01/23 09:32 BMI result Body Mass Index 24.7 Tobacco/Smoking Status: Tobacco use Status Tobacco use date assessed 04/28/23 06/01/23 09:30 Patient Tobacco Use Status Never used Tobacco 06/01/23 09:30 e-Cigarette/Vaping Use Never Used 06/01/23 09:30 Thrive Assessment: Date of Thrive Assessment Date Thrive assessed 05/13/23 06/01/23 09:30 Const General: no acute distress HENMT Head: Yes normal to inspection Resp Effort & Inspection: normal respiratory effort Auscultation: clear to auscultation bilaterally Cardio Rhythm: regular rhythm Heart sounds: S1 normal heart sound present and S2 normal heart sound present GI Inspection: Yes normal to inspection Palpation (GI): Soft to palpation Percussion: Yes normal to percussion Auscultation: normal bowel sounds Assessment and Plan Assessment & Plan (1) Anemia: Code(s): D64.9 - Anemia, unspecified Plan: after surgery, check CBC (2) Hypertension: Code(s): I10 - Essential (primary) hypertension Plan: Continue current medications (3) Postmenopausal: Code(s): Z78.0 - Asymptomatic menopausal state Plan: Check DEXA (4) Vitamin D3 deficiency: Code(s): E55.9 - Vitamin D deficiency, unspecified Plan: CONTINUE VITAMIN-D SUPPLEMENT (5) History of arthroplasty of left hip: Comment: cemented hemiarthroplasty after hip fracture 05/13/23 Dr. Stout Code(s): Z96.642 - Presence of left artificial hip joint Plan: Follow-up with orthopedics Orders: Orders XR DEXA axial skeleton Today Z78.0 - Asymptomatic menopausal state Vitamin D 25-OH Total Today E55.9 - Vitamin D deficiency, unspecified Basic Metabolic Panel Today D64.9 - Anemia, unspecified, I10 - Essential (primary) hypertension Medications: New cholecalciferol (vitamin D3) 50 mcg PO DAILY 90 tabs 1RF Coding Level of Care Code Est Pt Level 4 (98290) Diagnoses Anemia D64.9 Hypertension I10 Postmenopausal Z78.0 Vitamin D3 deficiency E55.9 History of arthroplasty of left hip Z96.642
[2023-06-01 09:32] VITALS: BP 118/66; PULSE 82; O2SAT 98; BMI 24.7
== END 2023-06-01 10:20 | disposition home or self-care (01) ==
PROVIDERS: PCP Internal Medicine; Visit Provider Internal Medicine
DX: D64.9 Anemia, unspecified (principal); I10 Essential (primary) hypertension; Z78.0 Asymptomatic menopausal state; E55.9 Vitamin D deficiency, unspecified; Z96.642 Presence of left artificial hip joint
CPT/HCPCS: 99214

== ENCOUNTER 2023-06-01 10:21 | Outpatient (REF) | payer MEDICARE, SELFPAY ==
[2023-06-01 13:57] LABS: Anion Gap 16 (12-20); Blood Urea Nitrogen 13 mg/dL (9-16); Calcium 9.9 mg/dL (8.4-10.2); Carbon Dioxide 22 mmol/L (22-29); Chloride 99 mmol/L (96-108); Estimated Glomerular Filt Rate > 60; Glucose Random 76 mg/dL (60-115); Potassium 4.2 mmol/L (3.3-5.1); Sodium 133 mmol/L (135-145)
[2023-06-01 14:06] LABS: Vitamin D 25-OH Total 26.5 ng/mL (>30)
== END 2023-06-01 10:22 | disposition home or self-care (01) ==
LOC: HO.HMGCLDS 10:21
PROVIDERS: PCP Internal Medicine; Visit Provider Internal Medicine
DX: D64.9 Anemia, unspecified (principal); I10 Essential (primary) hypertension; E55.9 Vitamin D deficiency, unspecified
CPT/HCPCS: 36415; 80048; 82306

== ENCOUNTER 2023-06-15 10:23 | Outpatient (REF) | payer MEDICARE, SELFPAY ==
[2023-06-15 14:01] LABS: Anion Gap 12 (12-20); Blood Urea Nitrogen 6 mg/dL (9-16); Calcium 9.4 mg/dL (8.4-10.2); Carbon Dioxide 25 mmol/L (22-29); Chloride 93 mmol/L (96-108); Estimated Glomerular Filt Rate > 60; Glucose Random 100 mg/dL (60-115); Potassium 4.5 mmol/L (3.3-5.1); Sodium 125 mmol/L (135-145)
[2023-06-15 14:25] LABS: Vitamin D 25-OH Total 34.3 ng/mL (>30)
== END 2023-06-15 10:24 | disposition home or self-care (01) ==
LOC: HO.HMGCLDS 10:23
PROVIDERS: PCP Internal Medicine; Visit Provider Internal Medicine
DX: E55.9 Vitamin D deficiency, unspecified (principal); E87.1 Hypo-osmolality and hyponatremia
CPT/HCPCS: 36415; 80048; 82306

== ENCOUNTER 2023-06-19 09:35 | Outpatient (REF) | payer MEDICARE, SELFPAY ==
[2023-06-19 11:46] LABS: Anion Gap 12 (12-20); Blood Urea Nitrogen 13 mg/dL (9-16); Calcium 9.3 mg/dL (8.4-10.2); Carbon Dioxide 26 mmol/L (22-29); Chloride 89 mmol/L (96-108); Estimated Glomerular Filt Rate > 60; Glucose Random 97 mg/dL (60-115); Potassium 4.2 mmol/L (3.3-5.1); Sodium 123 mmol/L (135-145)
== END 2023-06-19 09:36 | disposition home or self-care (01) ==
LOC: HO.HMGCLDS 09:35
PROVIDERS: PCP Internal Medicine; Visit Provider Internal Medicine
DX: E87.1 Hypo-osmolality and hyponatremia (principal)
CPT/HCPCS: 36415; 80048

== ENCOUNTER 2023-06-19 16:34 | Inpatient (IN) | payer MEDICARE, SELFPAY ==
[2023-06-19 16:50] VITALS: BP 132/60; PULSE 84; RESP 16; TEMP 36.7; O2SAT 98; BMI 24.7
--- NOTE | 2023-06-19 16:52 | ECG_ITS ---
Test Reason : QT INTERVAL Blood Pressure : / mmHG Vent. Rate : 083 BPM Atrial Rate : 083 BPM P-R Int : 154 ms QRS Dur : 070 ms QT Int : 336 ms P-R-T Axes : 060 008 039 degrees QTc Int : 394 ms Normal sinus rhythm Low voltage QRS Borderline ECG When compared with ECG of 13-MAY-2023 01:38, Premature atrial complexes are no longer Present Referred By: Generic ED Physician Electronically Signed By:TAI SERVIN
--- NOTE | 2023-06-19 17:06 | ED_ITS ---
HPI - General Adult General Chief complaint: Recheck/Abnormal Lab/Rx Stated complaint: Abnormal labs Time Seen by Provider: 06/19/23 21:01 History of Present Illness HPI narrative: The patient is an 82-year-old woman who lives by herself. Her son says that he believes she has a early cognitive decline. She broke her hip a little over a month ago. She had surgery on May 13. She was treated at this hospital. After surgery she went to the [facility] rehab facility for 2 weeks. She has therefore been home for about 3 weeks. She lives alone. She had a follow up appointment with her PCP Dr. Marie 3 weeks ago on March 31. She had outpatient blood work at that time that showed a sodium of 133. She had repeat blood work 4 days ago on Thursday. This showed a sodium of 125. This was followed up with a sodium done this morning as an outpatient. Her sodium was 123 and she was advised to come to the emergency room. The patient denies any symptoms. Her son says that she drinks a great deal of diet Coke. No fever, sweats, chills. No headache. No chest pain. No shortness of breath. Related Data Home Medications Medication Instructions Recorded Confirmed acetaminophen 325 mg tablet 650 mg PO Q6H PRN Pain 06/19/23 06/19/23 mgspwkpbnajc-oiebdzpf-[id number] 1 tab PO DAILY 06/19/23 06/19/23 tablet (Multivitamin 50 Plus tablet) pravastatin 80 mg tablet 80 mg PO BEDTIME 06/19/23 06/19/23 Previous Rx's Medication Instructions Recorded amlodipine 5 mg-benazepril 10 mg 1 cap PO DAILY #90 caps 04/28/23 capsule cholecalciferol (vitamin D3) 50 50 mcg PO DAILY #90 tabs 04/28/23 mcg (2,000 unit) tablet folic acid 1 mg tablet 1 mg PO DAILY #90 tabs 04/28/23 omeprazole 20 mg capsule,delayed 20 mg PO DAILY #30 caps 06/04/23 release Allergies Allergy/AdvReac Type Severity Reaction Status Date / Time No Known Allergies Allergy Verified 06/01/23 09:36 Review of Systems 2 Review of Systems: Yes all other systems are reviewed and are negative [facility] Past Medical History Medical History Anemia Hypertension Surgical History History of hysterectomy Family History Family History Father No problems noted. Mother Hypertension Social History Social History Household Members: None Household Members Other:: single, lives alone, son lives near Housing: Assisted Living Facility Do you presently have visiting nurse or other home services: Yes Patient Tobacco Use Status: Never used Tobacco Smoked in Last 30 Days: No e-Cigarette/Vaping Use: Never Used Use of substances other than those prescribed or required for medical reasons: No Advance Directives: Yes Advance Directives on File: Yes Advance Directives Date on File: 05/19/23 Nutrition Risks: No Nutritional Risk Current occupational status: retired Cognitive needs: No Hearing needs: No Vision needs: Yes Physical Exam ED Vital Signs: Vital Signs - 24 hr 06/19/23 16:50 Temperature 98.0 F Pulse Rate 84 Respiratory Rate 16 Blood Pressure 132/60 Pulse Oximetry 98 Oxygen Delivery Method Room Air BMI result Body Mass Index 24.7 Const Other: The patient is somewhat frail looking 82-year-old who was awake and alert and does not appear in obvious distress. She does not seem in pain or any respiratory difficulty. HENMT Other: Face is symmetrical. Mucous membranes moist. Eyes Other: Pupils are round equal, conjunctivae clear, extraocular movements intact Neck Other: No JVD Resp Effort & Inspection: normal respiratory effort Auscultation: clear to auscultation bilaterally Cardio Rate: regular rate Rhythm: regular rhythm Heart sounds: S1 normal heart sound present and S2 normal heart sound present GI Other: Abdomen is soft and nontender Back/Spine/Pelvis Other: No CVA percussion tenderness Skin Other: Skin is dry and unremarkable Neuro Other: The patient is awake and alert. She has a slightly vague affect. She is reasonably well oriented. She knows the month. When asked her age she first said 60 but she later said 83. Face is symmetrical, eye movements intact, speech is clear, she moves her extremities symmetrically. Gait is steady. Coordination normal. Grossly neurologically intact aside from some mild cognitive impairment. No sign of delirium Extrem Other: No calf swelling or tenderness, no leg asymmetry Course Course Course Narrative: RME- patient had labs drawn this morning apparently the sodium of 123. Denies vomiting or diarrhea Medications Administered Generic Name Dose Route Start Last Admin Trade Name Ximena PRN Reason Stop Dose Admin Enoxaparin Sodium 40 mg 06/19/23 22:00 06/19/23 23:13 Enoxaparin Sodium 40 Mg/0.4 Ml Syringe SUBCUT Not Given Q24H [facility] Sodium Chloride 3 ml 06/20/23 00:00 06/20/23 00:12 0.9 % Sodium Chloride Flush 3 Ml Syringe IVFLUSH 3 ml QSHIFT [facility] Administration Medical Decision Making Medical Decision Making [facility] Narrative: The patient is an 82-year-old woman who lives by herself who was found to have a sodium of 125 on outpatient labs 5 days ago. Repeat outpatient labs this morning showed a sodium of 123 and she was referred to the emergency room. The patient is asymptomatic. She has not really on any medications that would typically explain her hyponatremia. Her son says she drinks a lot of diet soda. She has not exhibiting any signs of significant mental status changes. She will be hospitalized for further evaluation of her hyponatremia. Lab Data 06/19/23 17:08 06/19/23 17:07 Labs: Lab Results 06/19/23 06/19/23 06/19/23 Range/Units 17:07 17:08 19:29 WBC 4.9 (4.8-10.8) X10*3/uL RBC 3.67 L (4.20-5.50) X10*6/uL Hgb 10.9 L (12.0-16.0) g/dl Hct 31.7 L (37.0-47.0) % MCV 86.4 (80.0-98.0) fL MCH 29.7 (27.0-33.0) pg MCHC 34.4 (31.0-35.0) g/dl RDW 12.5 (11.0-16.0) % Plt Count 232 D (160-400) X10*3/uL MPV 10.1 (9.4-12.3) fL Immature Gran % (Auto) 0.4 (0.0-0.4) % Neut % (Auto) 76.2 H (45-73) % Lymph % (Auto) 12.0 L (20-40) % [place] % (Auto) 10.4 (2-11) % Eos % (Auto) 0.4 (0-4) % Baso % (Auto) 0.6 (0-2) % Lymph # (Auto) 0.6 L (1.2-4.9) X10*3/uL [place] # (Auto) 0.5 (0.1-1.2) X10*3/uL Eos # (Auto) 0.0 (0.0-0.4) X10*3/uL Baso # (Auto) 0.0 (0.0-0.2) X10*3/uL Abs Immat Gran (auto) 0.02 (0.00-0.03) X10*3/uL Absolute Neuts (auto) 3.8 (2.0-8.3) x10*3/uL Absolute Nucleated RBC 0.000 (0.0-0.012) X10*3/uL Nucleated RBC % (auto) 0.0 (0.0-0.2) /100WBC Sodium 123 L (135-145) mmol/L Potassium 4.7 (3.3-5.1) mmol/L Chloride 90 L (96-108) mmol/L Carbon Dioxide 24 (22-29) mmol/L Anion Gap 14 (12-20) BUN 15 (9-16) mg/dL Creatinine 0.88 (0.5-1.4) mg/dL Estim Creat Clear Calc 41.0 Estimated GFR > 60 Random Glucose 99 (60-115) mg/dL Osmolality 258 L (281-305) mosm/kg Calcium 10.1 D (8.4-10.2) mg/dL Magnesium 2.0 (1.6-2.6) mg/dL Total Bilirubin 0.3 (0.0-1.0) mg/dL AST 13 (5-31) U/L ALT 8 (0-31) U/L Alkaline Phosphatase 59 (39-117) U/L Total Protein 6.8 (6.5-8.0) g/dL Albumin 3.9 (3.5-5.0) g/dL Independent Interpretation I performed an independent interpretation of an: EKG Interpretation: EKG at 17:00 shows normal sinus rhythm at 83 beats per minute. No acute ischemic changes Discharge Plan Discharge Clinical Impression: Acute hyponatremia Patient Disposition: Admitted As Inpatient Interventions: Admission Worksheet (ED) Last Done: 06/19/23 23:30
[2023-06-19 17:12] LABS: MANUAL DIFF FLAG NO
[2023-06-19 17:21] LABS: Basophils Percent Auto 0.6 % (0-2); Eosinophils Percent Auto 0.4 % (0-4); Hematocrit 31.7 % (37.0-47.0); Hemoglobin 10.9 g/dl (12.0-16.0); Imm Gran Abs Auto 0.02 X10*3/uL (0.00-0.03); Imm Gran Pct Auto 0.4 % (0.0-0.4); Lymphocytes Absolute Auto 0.6 X10*3/uL (1.2-4.9); Mean Corpuscular HGB Conc 34.4 g/dl (31.0-35.0); Mean Corpuscular Hemoglobin 29.7 pg (27.0-33.0); Mean Corpuscular Volume 86.4 fL (80.0-98.0); Mean Platelet Volume 10.1 fL (9.4-12.3); Monocytes Absolute Auto 0.5 X10*3/uL (0.1-1.2); Monocytes Percent Auto 10.4 % (2-11); Neutrophils Absolute Auto 3.8 x10*3/uL (2.0-8.3); Neutrophils Percent Auto 76.2 % (45-73); Platelet Count 232 X10*3/uL (160-400); Red Blood Count 3.67 X10*6/uL (4.20-5.50); Red Cell Distribution Width 12.5 % (11.0-16.0); White Blood Count 4.9 X10*3/uL (4.8-10.8)
[2023-06-19 17:30] LABS: Alanine Aminotransferase 8 U/L (0-31); Albumin Level 3.9 g/dL (3.5-5.0); Alkaline Phosphatase 59 U/L (39-117); Anion Gap 14 (12-20); Aspartate Amino Transferase 13 U/L (5-31); Bilirubin Total 0.3 mg/dL (0.0-1.0); Blood Urea Nitrogen 15 mg/dL (9-16); Calcium 10.1 mg/dL (8.4-10.2); Carbon Dioxide 24 mmol/L (22-29); Chloride 90 mmol/L (96-108); Estimated Glomerular Filt Rate > 60; Glucose Random 99 mg/dL (60-115); Potassium 4.7 mmol/L (3.3-5.1); Sodium 123 mmol/L (135-145); Total Protein 6.8 g/dL (6.5-8.0)
[2023-06-19 19:47] LABS: Osmolality, Serum 258 mosm/kg (281-305)
--- NOTE | 2023-06-19 21:45 | P.HPHOSP_ITS ---
History of Present Illness Date of Service: 06/19/23 Attending physician on admission: Collette Galo Chief Complaint: Abnormal labs Pt is an 82-year-old female with a PMH significant for?HTN, HLD, and recent admission after fall at home with left femoral neck fracture surgically repaired who presents to the ED for evaluation of low-sodium taken from outpatient labs. ?Patient received surgical correction for left hip fracture on 05/13/2023. Patient was then discharged to [facility] for approximately 2 weeks and then discharged home. At follow up appointment with PCP 3 weeks ago on June 01 where outpatient blood work showed a sodium of 133. Repeat blood work 4 days ago 126 showed sodium of 125 and then follow-up labs earlier this morning showed sodium of 123. Patient was called by PCP who suggested going to the ER for further evaluation. Patient reports feeling ?fantastic? with no pain. Reports things have gone well after returning home from rehab. Has been using her walker and exercises daily. Has not had any recent medication changes. Denies drinking more fluid than normal. Denies urinating more than normal. No nausea, vomiting. Denies fatigue or muscle weakness or cramping. In the ED pt's vital signs WNL. Labs were significant for hyponatremia of 123 and serum osmolality 258, otherwise grossly unremarkable. No leukocytosis. Stable H&H. Renal and hepatic function baseline. EKG demonstrated normal sinus rhythm without evidence of ST elevations or depressions. Pt will be admitted to the hospital for treatment and further evaluation of hyponatremia. Review of Systems 2 Review of Systems: Patient has no acute medical complaints at this time [facility] Medical History Anemia Hypertension Family History Father No problems noted. Mother Hypertension Surgical History History of hysterectomy Social History Household Members: None Household Members Other:: single, lives alone, son lives near Housing: Apartment Do you presently have visiting nurse or other home services: No Patient Tobacco Use Status: Never used Tobacco Smoked in Last 30 Days: No e-Cigarette/Vaping Use: Never Used Use of substances other than those prescribed or required for medical reasons: No Have you been hit, kicked, punched, or otherwise hurt by someone within the past year? If so, by whom?: No Do you feel safe in your current relationship?: Yes Is there a partner from a previous relationship who is making you feel unsafe now?: No Are you made to feel afraid or neglected: No Advance Directives: Yes Advance Directives on File: Yes Advance Directives Date on File: 05/19/23 Do you have thoughts of harming others: None Do you have a plan to hurt others: No Plan Recently lost weight without trying: No Nutrition Risks: No Nutritional Risk Patient : No Current occupational status: retired Cognitive needs: No Hearing needs: No Vision needs: Yes Meds Allergies Allergy/AdvReac Type Severity Reaction Status Date / Time No Known Allergies Allergy Verified 06/01/23 09:36 Active Medications: Current Medications Acetaminophen (Acetaminophen 325 Mg Tablet) 650 mg PO Q6H PRN PRN Reason: Pain, Mild (Pain Scale 1-3) Enoxaparin Sodium (Enoxaparin Sodium 40 Mg/0.4 Ml Syringe) 40 mg SUBCUT Q24H [facility] Melatonin (Melatonin 3 Mg Tablet) 6 mg PO BEDTIME PRN PRN Reason: Insomnia Ondansetron HCl (Ondansetron Hcl 4 Mg/2 Ml Vial) 4 mg IVPUSH Q8H PRN PRN Reason: Nausea and Vomiting Sodium Chloride (0.9 % Sodium Chloride Flush 3 Ml Syringe) 3 ml IVFLUSH QSHIFT [facility] Home Medications Medication Instructions Recorded Confirmed Last Taken Type acetaminophen 325 mg tablet 650 mg PO Q6H PRN Pain 06/19/23 06/19/23 06/19/23 History [id number]-[id number] 1 tab PO DAILY 06/19/23 06/19/23 06/19/23 History tablet (Multivitamin 50 Plus tablet) pravastatin 80 mg tablet 80 mg PO BEDTIME 06/19/23 06/19/23 Unknown History Physical Exam 2 Vital Signs and Narrative: Vital Signs: Last Vital Signs Temp 98.0 F 06/19/23 16:50 Pulse 84 06/19/23 16:50 Resp 16 06/19/23 16:50 BP 132/60 06/19/23 16:50 Pulse Ox 98 06/19/23 16:50 O2 Del Method Room Air 06/19/23 16:50 BMI result Body Mass Index 24.7 General: AOx3, no acute distress Resp: CTA bilaterally CVS: S1, S2, RRR GI: +BS, NT, no distention Skin: Warm, dry Neuro: Cranial nerves II-XII grossly intact bilaterally. Motor grossly intact bilaterally Extremities: No edema Psych: Appropriate affect Results Labs 06/19/23 17:08 06/19/23 17:07 Labs: Laboratory Results - last 24 hr 06/19/23 06/19/23 06/19/23 17:07 17:08 19:29 MCV 86.4 MCH 29.7 MCHC 34.4 RDW 12.5 Plt Count 232 D MPV 10.1 Immature Gran % (Auto) 0.4 Neut % (Auto) 76.2 H Lymph % (Auto) 12.0 L [place] % (Auto) 10.4 Eos % (Auto) 0.4 Baso % (Auto) 0.6 Lymph # (Auto) 0.6 L [place] # (Auto) 0.5 Eos # (Auto) 0.0 Baso # (Auto) 0.0 Abs Immat Gran (auto) 0.02 Absolute Neuts (auto) 3.8 Absolute Nucleated RBC 0.000 Nucleated RBC % (auto) 0.0 Anion Gap 14 Estim Creat Clear Calc 41.0 Estimated GFR > 60 Random Glucose 99 Osmolality 258 L Calcium 10.1 D Magnesium 2.0 Total Bilirubin 0.3 AST 13 ALT 8 Alkaline Phosphatase 59 Total Protein 6.8 Albumin 3.9 Assessment and Plan (1) Acute hyponatremia: Status: Acute Plan Pt is an 82-year-old female with a PMH significant for?HTN, HLD, and recent admission after fall at home with left femoral neck fracture surgically repaired who presents to the ED for evaluation of low-sodium taken from outpatient labs. Pt will be admitted to the hospital for treatment and further evaluation of hyponatremia. Hyponatremia Sodium 123 at time of presentation, down from 125 on 06/15 and 133 on 06/01 Unclear etiology: Patient not home medications normally associated with hyponatremia Will check urine studies: Creatinine, sodium, osmolality Currently Will treat with fluid restriction, will base subsequent treatment on urine studies Consider nephrology consult Follow BNP HTN Continue amlodipine HLD Continue statin GERD Continue omeprazole Full Code Attending:?Dr. Galo DVT Prophylaxis: Lovenox Pt will require a hospitalization of at least two nights for treatment and further evaluation of?acute hyponatremia with close monitoring of labs and fluid intake. Quality Stroke Does the patient have a stroke diagnosis?: No VTE Prior VTE?: No VTE Risk Level:: Medical - moderate - high VTE Device Contraindication: Treatment Not Indicated VTE Drug Contraindication: N/A - Med Ordered
--- NOTE | 2023-06-19 21:46 | PHA.MEDREC ---
Pharmacy Consult ? Medication Reconciliation Pharmacy has completed the medication reconciliation. Confirmed medication with patient's son and claim history
[2023-06-19 21:51] VITALS: BP 131/62; PULSE 75; RESP 16; TEMP 36.5; O2SAT 98
--- NOTE | 2023-06-19 22:13 | PC.NURSE ---
pt ambulated with this RN to and from bathroom using walker, steady gait. no apparent distress . pt giving urine sample now. #20g iv placed in LAC. vital signs updated, call oscar within reach. plan of care ongoing
[2023-06-19 22:29] LABS: Appearance Urine Clear; Color Urine Yellow; Glucose Urine UA Negative (Negative); Leukocyte Esterase Urine Trace (Negative); Nitrite Urine Negative (Negative); UMIC TRIGGER UACC YES; Urine Blood Negative (Negative); Urine Ketones 15 mg/dL (Negative); Urine Protein Negative (Neg-Trace)
[2023-06-19 22:34] LABS: Bacteria Urine None Seen (None Seen); Hyaline Casts Urine 0-2 /LPF (0-2); RBC Urine 0-2 /HPF (0-2); Squamous Epithelial Cell Urine 0-2 /HPF (0-2); WBC Urine 0-5 /HPF (0-5)
[2023-06-19 22:36] LABS: Osmolality Urine 287 mosm/kg (373-1093)
[2023-06-19 22:39] LABS: Creatinine Urine 49.51 mg/dL
[2023-06-20] MEDS: 0.9 % Sodium Chloride Flush 3 ML SYRINGE IVFLUSH ×4 (00:12→20:22)
[2023-06-20 00:23] VITALS: BMI 26.0
[2023-06-20 00:31] VITALS: BP 139/60; PULSE 74; RESP 18; TEMP 36.5; O2SAT 98
[2023-06-20 03:16] VITALS: BP 119/60; PULSE 73; RESP 18; TEMP 36.4; O2SAT 98
[2023-06-20 05:34] LABS: Basophils Absolute Auto 0.1 X10*3/uL (0.0-0.2); Basophils Percent Auto 1.3 % (0-2); Hematocrit 31.7 % (37.0-47.0); Imm Gran Abs Auto 0.01 X10*3/uL (0.00-0.03); Imm Gran Pct Auto 0.3 % (0.0-0.4); Lymphocytes Absolute Auto 0.7 X10*3/uL (1.2-4.9); Lymphocytes Percent Auto 17.8 % (20-40); MANUAL DIFF FLAG SCAN; Mean Corpuscular HGB Conc 34.7 g/dl (31.0-35.0); Mean Corpuscular Hemoglobin 29.6 pg (27.0-33.0); Mean Corpuscular Volume 85.4 fL (80.0-98.0); Mean Platelet Volume 12.1 fL (9.4-12.3); Monocytes Absolute Auto 0.6 X10*3/uL (0.1-1.2); Monocytes Percent Auto 14.3 % (2-11); Neutrophils Absolute Auto 2.6 x10*3/uL (2.0-8.3); Neutrophils Percent Auto 65.3 % (45-73); Red Blood Count 3.71 X10*6/uL (4.20-5.50); Red Cell Distribution Width 12.5 % (11.0-16.0)
[2023-06-20 05:39] LABS: Anion Gap 13 (12-20); Blood Urea Nitrogen 12 mg/dL (9-16); Calcium 9.7 mg/dL (8.4-10.2); Carbon Dioxide 23 mmol/L (22-29); Chloride 94 mmol/L (96-108); Creatinine Clr Calc Pharmacy 49.2; Estimated Glomerular Filt Rate > 60; Glucose Random 83 mg/dL (60-115); Potassium 3.9 mmol/L (3.3-5.1); Sodium 126 mmol/L (135-145)
[2023-06-20 05:50] LABS: SLIDE REVIEW VERIFIED
[2023-06-20 05:56] LABS: Thyroid Stimulating Hormone 1.55 uIU/mL (0.32-4.0)
[2023-06-20 07:50] VITALS: BP 127/61; PULSE 71; RESP 18; TEMP 36.2; O2SAT 97
--- NOTE | 2023-06-20 09:07 | HO.PM.IMPN ---
Subjective Subjective Date of Service: 06/20/23 Interval History: follow-up on hyponatremia she feels good, sodium is 126 up from 123 Physical Exam Vital Signs: Vital Signs: Last Vital Signs Temp 97.1 F 06/20/23 07:50 Pulse 71 06/20/23 07:50 Resp 18 06/20/23 07:50 BP 127/61 06/20/23 07:50 Pulse Ox 97 06/20/23 07:50 O2 Del Method Room Air 06/20/23 07:50 BMI result Body Mass Index 26.0 General: AO X 3, no acute distress Resp: CTA bilateral CVS: S1,S2,RRR GI: +BS, NT, no distention Skin: No rash Neuro: motor grossly intact Psych: appropriate affect Objective Data Active Medications Acetaminophen (Acetaminophen 325 Mg Tablet) 650 mg PO Q6H PRN PRN Reason: Pain, Mild (Pain Scale 1-3) Amlodipine Besylate (Amlodipine Besylate 5 Mg Tablet) 5 mg PO DAILY [facility] Enoxaparin Sodium (Enoxaparin Sodium 40 Mg/0.4 Ml Syringe) 40 mg SUBCUT Q24H [facility] Last Admin: 06/19/23 23:13 Dose: Not Given Documented By: ART Non-Admin Reason: Patient Refused Folic Acid (Folic Acid 1 Mg Tablet) 1 mg PO DAILY [facility] Lisinopril (Lisinopril 10 Mg Tablet) 10 mg PO DAILY [facility] Melatonin (Melatonin 3 Mg Tablet) 6 mg PO BEDTIME PRN PRN Reason: Insomnia Multivitamins/Vitamin C (Multivitamin Tablet) 1 tab PO DAILY [facility] Omeprazole (Omeprazole 20 Mg Capsule.Dr) 20 mg PO DAILY@0630 [facility] Ondansetron HCl (Ondansetron Hcl 4 Mg/2 Ml Vial) 4 mg IVPUSH Q8H PRN PRN Reason: Nausea and Vomiting Pravastatin Sodium (Pravastatin Sodium 80 Mg Tablet) 80 mg PO BEDTIME [facility] Sodium Chloride (0.9 % Sodium Chloride Flush 3 Ml Syringe) 3 ml IVFLUSH QSHIFT [facility] Last Admin: 06/20/23 00:12 Dose: 3 ml Documented By: MACK Vitamin D (Cholecalciferol (Vitamin D3) 25 Mcg Tablet) 50 mcg PO DAILY [facility] Labs 06/20/23 04:50 06/20/23 04:50 Labs: Laboratory Results - last 24 hr 06/19/23 06/19/23 06/19/23 17:07 17:08 19:29 MCV 86.4 MCH 29.7 MCHC 34.4 RDW 12.5 Plt Count 232 D MPV 10.1 Immature Gran % (Auto) 0.4 Neut % (Auto) 76.2 H Lymph % (Auto) 12.0 L [place] % (Auto) 10.4 Eos % (Auto) 0.4 Baso % (Auto) 0.6 Lymph # (Auto) 0.6 L [place] # (Auto) 0.5 Eos # (Auto) 0.0 Baso # (Auto) 0.0 Abs Immat Gran (auto) 0.02 Absolute Neuts (auto) 3.8 Absolute Nucleated RBC 0.000 Nucleated RBC % (auto) 0.0 Smear Tech's Comments Anion Gap 14 Estim Creat Clear Calc 41.0 Estimated GFR > 60 Random Glucose 99 Osmolality 258 L Calcium 10.1 D Magnesium 2.0 Total Bilirubin 0.3 AST 13 ALT 8 Alkaline Phosphatase 59 Total Protein 6.8 Albumin 3.9 TSH Urine Color Urine Appearance Urine pH Ur Specific [place] Urine Protein Urine Glucose (UA) Urine Ketones Urine Blood Urine Nitrite Ur Leukocyte Esterase Urine RBC Urine WBC Ur Squamous Epith Cells Urine Bacteria Hyaline Casts Urine Osmolality Ur Random Sodium Urine Creatinine 06/19/23 06/20/23 22:22 04:50 MCV 85.4 MCH 29.6 MCHC 34.7 RDW 12.5 Plt Count TNP MPV 12.1 Immature Gran % (Auto) 0.3 Neut % (Auto) 65.3 Lymph % (Auto) 17.8 L [place] % (Auto) 14.3 H Eos % (Auto) 1.0 Baso % (Auto) 1.3 Lymph # (Auto) 0.7 L [place] # (Auto) 0.6 Eos # (Auto) 0.0 Baso # (Auto) 0.1 Abs Immat Gran (auto) 0.01 Absolute Neuts (auto) 2.6 Absolute Nucleated RBC 0.000 Nucleated RBC % (auto) 0.0 Smear Tech's Comments VERIFIED Anion Gap 13 Estim Creat Clear Calc 49.2 Estimated GFR > 60 Random Glucose 83 Osmolality Calcium 9.7 Magnesium Total Bilirubin AST ALT Alkaline Phosphatase Total Protein Albumin TSH 1.55 Urine Color Yellow Urine Appearance Clear Urine pH 6.0 Ur Specific [place] 1.010 Urine Protein Negative Urine Glucose (UA) Negative Urine Ketones 15 Urine Blood Negative Urine Nitrite Negative Ur Leukocyte Esterase Trace H Urine RBC 0-2 Urine WBC 0-5 Ur Squamous Epith Cells 0-2 Urine Bacteria None Seen Hyaline Casts 0-2 Urine Osmolality 287 L Ur Random Sodium 30.0 Urine Creatinine 49.51 Assessment and Plan (1) Hyponatremia: Status: Acute Plan 82-year-old female with a PMH significant for?HTN, HLD, and recent admission after fall at home with left femoral neck fracture surgically repaired who presents to the ED for evaluation of low-sodium taken from outpatient labs. Pt will be admitted to the hospital for treatment and further evaluation of hyponatremia. Hyponatremia--asymptomatic, urine osmo 287, serum osmo 258, UrNA 30 suggest euvolemic hyponatremia--ie SIADH type vs excess water intake -sodium is improving -water restriction and follow serial sodium -Nephrology input HTN Continue amlodipine HLD Continue statin GERD Continue omeprazole Full Code Attending:?Dr. Galo DVT Prophylaxis: Lovenox inpt for treatment of hyponatremia She wants to go home, i will discuss with neprhology for possible outpatient f/u Quality Stroke Does the patient have a stroke diagnosis?: No VTE Prior VTE?: No VTE Risk Level:: Medical - moderate - high VTE Device Contraindication: Treatment Not Indicated VTE Drug Contraindication: N/A - Med Ordered
[2023-06-20] MEDS: Cholecalciferol (Vitamin D3) 25 MCG TABLET 50 MCG PO (09:08)
[2023-06-20] MEDS: lisinopriL 10 MG TABLET PO (09:08)
[2023-06-20] MEDS: Multivitamin TABLET 1 TAB PO (09:08)
[2023-06-20] MEDS: Omeprazole 20 MG CAPSULE.DR PO (09:08)
[2023-06-20] MEDS: amLODIPine Besylate 5 MG TABLET PO (09:08)
[2023-06-20] MEDS: Folic Acid 1 MG TABLET PO (09:08)
--- NOTE | 2023-06-20 10:33 | MHC.CM.PN ---
met with pt who lives with her son,she is independent has no servies has own ride home dc plan home no servies
[2023-06-20 16:00] VITALS: BP 126/80; PULSE 80; RESP 18; TEMP 36.6; O2SAT 96
[2023-06-20 20:00] VITALS: BP 107/53; PULSE 74; RESP 16; TEMP 36.6; O2SAT 97
[2023-06-20] MEDS: Enoxaparin Sodium 40 MG/0.4 ML SYRINGE SUBCUT (20:21)
[2023-06-20] MEDS: Pravastatin Sodium 80 MG TABLET PO (20:21)
[2023-06-20 20:51] LABS: Anion Gap 10 (12-20); Blood Urea Nitrogen 16 mg/dL (9-16); Calcium 9.5 mg/dL (8.4-10.2); Carbon Dioxide 26 mmol/L (22-29); Chloride 97 mmol/L (96-108); Creatinine Clr Calc Pharmacy 45.1; Estimated Glomerular Filt Rate > 60; Glucose Random 105 mg/dL (60-115); Potassium 4.1 mmol/L (3.3-5.1); Sodium 129 mmol/L (135-145)
[2023-06-21 03:07] VITALS: BP 129/59; PULSE 70; RESP 16; TEMP 36.3; O2SAT 98
[2023-06-21] MEDS: Omeprazole 20 MG CAPSULE.DR PO (06:07)
[2023-06-21 07:54] VITALS: BP 111/57; PULSE 82; RESP 16; TEMP 36.3; O2SAT 97
[2023-06-21] MEDS: amLODIPine Besylate 5 MG TABLET PO (08:00)
[2023-06-21] MEDS: Folic Acid 1 MG TABLET PO (08:00)
[2023-06-21] MEDS: lisinopriL 10 MG TABLET PO (08:00)
[2023-06-21] MEDS: Cholecalciferol (Vitamin D3) 25 MCG TABLET 50 MCG PO (08:00)
[2023-06-21] MEDS: Multivitamin TABLET 1 TAB PO (08:00)
[2023-06-21] MEDS: 0.9 % Sodium Chloride Flush 3 ML SYRINGE IVFLUSH ×3 (08:00→20:04)
[2023-06-21 08:52] LABS: Anion Gap 12 (12-20); Blood Urea Nitrogen 18 mg/dL (9-16); Calcium 9.4 mg/dL (8.4-10.2); Carbon Dioxide 24 mmol/L (22-29); Chloride 97 mmol/L (96-108); Creatinine Clr Calc Pharmacy 44.5; Estimated Glomerular Filt Rate > 60; Glucose Random 119 mg/dL (60-115); Potassium 4.6 mmol/L (3.3-5.1); Sodium 128 mmol/L (135-145)
--- NOTE | 2023-06-21 12:54 | PM.DS ---
DS: Providers Provider Date of Service: 06/23/23 Date of admission: 06/19/23 21:26 Primary care physician: Brittney Marie MD DS: Diagnosis Discharge Diagnosis (1) Hyponatremia: Status: Deleted DS: Summary Hospital Course Hospital Course: Chief Complaint: Abnormal labs Pt is an 82-year-old female with a PMH significant for?HTN, HLD, and recent admission after fall at home with left femoral neck fracture surgically repaired who presents to the ED for evaluation of low-sodium taken from outpatient labs. ?Patient received surgical correction for left hip fracture on 05/13/2023. Patient was then discharged to [facility] rehab for approximately 2 weeks and then discharged home. At follow up appointment with PCP 3 weeks ago on June 01 where outpatient blood work showed a sodium of 133. Repeat blood work 4 days ago 126 showed sodium of 125 and then follow-up labs earlier this morning showed sodium of 123. Patient was called by PCP who suggested going to the ER for further evaluation. Patient reports feeling ?fantastic? with no pain. Reports things have gone well after returning home from rehab. Has been using her walker and exercises daily. Has not had any recent medication changes. Denies drinking more fluid than normal. Denies urinating more than normal. No nausea, vomiting. Denies fatigue or muscle weakness or cramping. In the ED pt's vital signs WNL. Labs were significant for hyponatremia of 123 and serum osmolality 258, otherwise grossly unremarkable. No leukocytosis. Stable H&H. Renal and hepatic function baseline. EKG demonstrated normal sinus rhythm without evidence of ST elevations or depressions. Pt will be admitted to the hospital for treatment and further evaluation of hyponatremia. Hospital course: Patient was admtted due to HypOnatremia noted on outpatient basis; she was asymptomatic. Urine osmo, serum osmo level pointed to euvolemic hyponatremia. Her management consisted of water restriction and following and serial labs and overtime, sodium level has gradually improved from 123 to 126 to 129 and now 131. She instructed to avoid drinking too much water Time Attestation Discharge coordination time: Greater than 30 minutes Quality: Safe Use of Opioids Does Pt have an Active Cancer Diagnosis on the Problem List?: No Quality: Stroke Does the patient have a stroke diagnosis?: No Physical Exam Vital Signs: Vital Signs: Selected Entries 06/23/23 07:05 Temperature 96.8 F Pulse Rate 64 Respiratory Rate 12 Blood Pressure 125/61 Pulse Oximetry 95 Oxygen Delivery Me thod Room Air Awake. Comfortable. Neck is supple. Mucosa moist. Lungs bilateral scattered rhonchi. Heart S1-S2 heard no gallop. Abdomen soft. Extremities no edema. No involuntary movements. No myoclonus. DS: Data Data Completed and Pending Completed studies during hospitalization [Text1]: Procedures Replacement of Left Hip Joint, Femoral Surface with Synthetic Substitute, Cemented, Open Approach (05/12/23) Labs on day of discharge: Laboratory Results - last 24 hr 06/20/23 06/21/23 20:27 08:31 Hold Purple Top SEE NOTE Sodium 129 L 128 L Potassium 4.1 4.6 Chloride 97 97 Carbon Dioxide 26 24 Anion Gap 10 L 12 BUN 16 18 H Creatinine 0.82 0.83 Estim Creat Clear Calc 45.1 44.5 Estimated GFR > 60 > 60 Random Glucose 105 119 H Calcium 9.5 9.4 Discharge Plan Discharge Anticipated Discharge Date/Time: 06/22/23 08:42 Patient Disposition: Home, Self-Care Discharge Diagnosis: Acute, euvolemic hyponatremia Referrals: Brittney Marie MD [Primary Care Provider] - 1 Week Discharge Medications: Continued omeprazole 20 mg capsule,delayed release(DR/EC) 20 mg PO DAILY Qty: 30 0RF acetaminophen 325 mg Tablet 650 mg PO Q6H PRN (Reason: Pain) Multivitamin 50 Plus Tablet 1 tab PO DAILY pravastatin 80 mg tablet 80 mg PO BEDTIME amlodipine-benazepril 5-10 mg capsule 1 cap PO DAILY Qty: 90 3RF folic acid 1 mg tablet 1 mg PO DAILY Qty: 90 3RF cholecalciferol (vitamin D3) 50 mcg (2,000 unit) tablet 50 mcg PO DAILY Qty: 90 3RF Discharge Orders: Discharge Order (Routine); Ordered 06/23/23 Ordered By: Valeriano George Diet: Advance to usual diet Activity on Discharge: As tolerated Stand Alone Forms: Patient Portal Discharge page Care Plan Goals: Resolution of hyponatremia Health Concerns: Hyponatremia Plan of Treatment: Avoid drinking excess water, no more than 1200 cc of water a day Follow-up with your primary care doctor within a week, call for appointment. Assessment: See above
--- NOTE | 2023-06-21 15:06 | P.PNIM_ITS ---
Subjective Subjective Date of Service: 06/22/23 Interval History: follow-up on hyponatremia sodium 123 to 126 to 129 to 128 she feels better, Physical Exam 2 Vital Signs: Vital Signs: Last Vital Signs Temp 97.4 F 06/21/23 07:54 Pulse 82 06/21/23 07:54 Resp 16 06/21/23 07:54 BP 111/57 L 06/21/23 07:54 Pulse Ox 97 06/21/23 07:54 O2 Del Method Room Air 06/21/23 07:54 BMI result Body Mass Index 26.0 General: AO X 3, no acute distress Resp: CTA bilateral CVS: S1,S2,RRR GI: +BS, NT, no distention Skin: No rash Neuro: motor grossly intact Psych: appropriate affect Objective Data Active Medications Acetaminophen (Acetaminophen 325 Mg Tablet) 650 mg PO Q6H PRN PRN Reason: Pain, Mild (Pain Scale 1-3) Amlodipine Besylate (Amlodipine Besylate 5 Mg Tablet) 5 mg PO DAILY [facility] Last Admin: 06/21/23 08:00 Dose: 5 mg Documented By: DAIN Enoxaparin Sodium (Enoxaparin Sodium 40 Mg/0.4 Ml Syringe) 40 mg SUBCUT Q24H [facility] Last Admin: 06/20/23 20:21 Dose: 40 mg Documented By: MACK Folic Acid (Folic Acid 1 Mg Tablet) 1 mg PO DAILY [facility] Last Admin: 06/21/23 08:00 Dose: 1 mg Documented By: DAIN Lisinopril (Lisinopril 10 Mg Tablet) 10 mg PO DAILY [facility] Last Admin: 06/21/23 08:00 Dose: 10 mg Documented By: DAIN Melatonin (Melatonin 3 Mg Tablet) 6 mg PO BEDTIME PRN PRN Reason: Insomnia Multivitamins/Vitamin C (Multivitamin Tablet) 1 tab PO DAILY [facility] Last Admin: 06/21/23 08:00 Dose: 1 tab Documented By: DAIN Omeprazole (Omeprazole 20 Mg Capsule.) 20 mg PO DAILY@0630 [facility] Last Admin: 06/21/23 06:07 Dose: 20 mg Documented By: MACK Ondansetron HCl (Ondansetron Hcl 4 Mg/2 Ml Vial) 4 mg IVPUSH Q8H PRN PRN Reason: Nausea and Vomiting Pravastatin Sodium (Pravastatin Sodium 80 Mg Tablet) 80 mg PO BEDTIME [facility] Last Admin: 06/20/23 20:21 Dose: 80 mg Documented By: MACK Sodium Chloride (0.9 % Sodium Chloride Flush 3 Ml Syringe) 3 ml IVFLUSH QSHIFT [facility] Last Admin: 06/21/23 08:00 Dose: 3 ml Documented By: DAIN Vitamin D (Cholecalciferol (Vitamin D3) 25 Mcg Tablet) 50 mcg PO DAILY [facility] Last Admin: 06/21/23 08:00 Dose: 50 mcg Documented By: DAIN Labs 06/20/23 04:50 06/22/23 05:41 Labs: Laboratory Results - last 24 hr 06/20/23 06/21/23 20:27 08:31 Hold Purple Top SEE NOTE Anion Gap 10 L 12 Estim Creat Clear Calc 45.1 44.5 Estimated GFR > 60 > 60 Random Glucose 105 119 H Calcium 9.5 9.4 Assessment and Plan (1) Hyponatremia: Status: Acute Plan 82-year-old female with a PMH significant for?HTN, HLD, and recent admission after fall at home with left femoral neck fracture surgically repaired who presents to the ED for evaluation of low-sodium taken from outpatient labs. Pt will be admitted to the hospital for treatment and further evaluation of hyponatremia. Hyponatremia--asymptomatic, urine osmo 287, serum osmo 258, UrNA 30 suggest euvolemic hyponatremia--ie SIADH type vs excess water intake -sodium is improving -water restriction and follow serial sodium -Nephrology input HTN Continue amlodipine HLD Continue statin GERD Continue omeprazole Full Code Attending:?Dr. Galo DVT Prophylaxis: Lovenox inpt for treatment of hyponatremia pt eval tomorrow prior to discharge Quality Stroke Does the patient have a stroke diagnosis?: No VTE Prior VTE?: No VTE Risk Level:: Medical - moderate - high VTE Device Contraindication: Treatment Not Indicated VTE Drug Contraindication: N/A - Med Ordered
[2023-06-21 15:22] VITALS: BP 106/52; PULSE 82; RESP 17; TEMP 36.5; O2SAT 96
[2023-06-21 19:20] VITALS: BP 131/61; PULSE 81; RESP 14; TEMP 36.2; O2SAT 98
[2023-06-21] MEDS: Melatonin 3 MG TABLET 6 MG PO (20:03)
[2023-06-21] MEDS: Pravastatin Sodium 80 MG TABLET PO (20:03)
[2023-06-21] MEDS: Enoxaparin Sodium 40 MG/0.4 ML SYRINGE SUBCUT (20:04)
[2023-06-22 03:42] VITALS: BP 143/67; PULSE 73; RESP 16; TEMP 36.6; O2SAT 98
[2023-06-22] MEDS: Omeprazole 20 MG CAPSULE.DR PO (05:41)
[2023-06-22 07:29] LABS: Anion Gap 10 (12-20); Blood Urea Nitrogen 18 mg/dL (9-16); Calcium 9.5 mg/dL (8.4-10.2); Carbon Dioxide 26 mmol/L (22-29); Chloride 99 mmol/L (96-108); Creatinine Clr Calc Pharmacy 49.2; Estimated Glomerular Filt Rate > 60; Glucose Random 101 mg/dL (60-115); Potassium 3.9 mmol/L (3.3-5.1); Sodium 131 mmol/L (135-145)
[2023-06-22 07:36] VITALS: BP 119/58; PULSE 67; RESP 18; TEMP 36.6; O2SAT 98
--- NOTE | 2023-06-22 08:06 | PM.CNNEP ---
History of Present Illness Reason for Consult Consult date: 06/22/23 Reason for consult: Hyponatremia Chief Complaint Chief complaint: Abnormal labs History of Present Illness Narrative: 82-year-old female with a PMH significant for?HTN, HLD, and recent admission after fall at home with left femoral neck fracture surgically repaired who presents to the ED for evaluation of low-sodium taken from outpatient labs. ?Patient received surgical correction for left hip fracture on 05/13/2023. Patient was then discharged to [facility] for approximately 2 weeks and then discharged home. At follow up appointment with PCP 3 weeks ago on June 01 where outpatient blood work showed a sodium of 133. Repeat blood work 4 days ago 126 showed sodium of 125 and then follow-up labs earlier this morning showed sodium of 123. Review of Systems Constitutional: Denies fever(s) and Denies weight loss Cardiovascular: Denies chest pain Respiratory: Denies cough and Denies hemoptysis Gastrointestinal: Denies abdominal pain, Denies diarrhea and Denies nausea Musculoskeletal: Denies back pain Denies focal weakness PMFSH Past Medical History Medical History Anemia Hypertension Family History Family History Father No problems noted. Mother Hypertension Surgical History Surgical History History of hysterectomy Social History Social History Household Members: None Household Members Other:: single, lives alone, son lives near Housing: Apartment Do you presently have visiting nurse or other home services: No Patient Tobacco Use Status: Never used Tobacco Smoked in Last 30 Days: No e-Cigarette/Vaping Use: Never Used Use of substances other than those prescribed or required for medical reasons: No Currently Displaying Signs/Symptoms of Drug Intoxication Withdrawal: No Have you been hit, kicked, punched, or otherwise hurt by someone within the past year? If so, by whom?: No Do you feel safe in your current relationship?: Yes Is there a partner from a previous relationship who is making you feel unsafe now?: No Are you made to feel afraid or neglected: No Advance Directives: Yes Advance Directives on File: Yes Advance Directives Date on File: 05/19/23 Do you have thoughts of harming others: None Do you have a plan to hurt others: No Plan Recently lost weight without trying: No Nutrition Risks: No Nutritional Risk Patient : No service: No Current occupational status: retired Cognitive needs: No Hearing needs: No Vision needs: Yes Meds Allergies Allergy/AdvReac Type Severity Reaction Status Date / Time No Known Allergies Allergy Verified 06/01/23 09:36 Active Medications: Current Medications Acetaminophen (Acetaminophen 325 Mg Tablet) 650 mg PO Q6H PRN PRN Reason: Pain, Mild (Pain Scale 1-3) Amlodipine Besylate (Amlodipine Besylate 5 Mg Tablet) 5 mg PO DAILY [facility] Last Admin: 06/21/23 08:00 Dose: 5 mg Enoxaparin Sodium (Enoxaparin Sodium 40 Mg/0.4 Ml Syringe) 40 mg SUBCUT Q24H [facility] Last Admin: 06/21/23 20:04 Dose: 40 mg Folic Acid (Folic Acid 1 Mg Tablet) 1 mg PO DAILY [facility] Last Admin: 06/21/23 08:00 Dose: 1 mg Lisinopril (Lisinopril 10 Mg Tablet) 10 mg PO DAILY [facility] Last Admin: 06/21/23 08:00 Dose: 10 mg Melatonin (Melatonin 3 Mg Tablet) 6 mg PO BEDTIME PRN PRN Reason: Insomnia Last Admin: 06/21/23 20:03 Dose: 6 mg Multivitamins/Vitamin C (Multivitamin Tablet) 1 tab PO DAILY [facility] Last Admin: 06/21/23 08:00 Dose: 1 tab Omeprazole (Omeprazole 20 Mg Capsule.Dr) 20 mg PO DAILY@0630 [facility] Last Admin: 06/22/23 05:41 Dose: 20 mg Ondansetron HCl (Ondansetron Hcl 4 Mg/2 Ml Vial) 4 mg IVPUSH Q8H PRN PRN Reason: Nausea and Vomiting Pravastatin Sodium (Pravastatin Sodium 80 Mg Tablet) 80 mg PO BEDTIME [facility] Last Admin: 06/21/23 20:03 Dose: 80 mg Sodium Chloride (0.9 % Sodium Chloride Flush 3 Ml Syringe) 3 ml IVFLUSH QSHIFT [facility] Last Admin: 06/21/23 20:04 Dose: 3 ml Vitamin D (Cholecalciferol (Vitamin D3) 25 Mcg Tablet) 50 mcg PO DAILY [facility] Last Admin: 06/21/23 08:00 Dose: 50 mcg Home Medications Medication Instructions Recorded Confirmed Last Taken Type acetaminophen 325 mg tablet 650 mg PO Q6H PRN Pain 06/19/23 06/19/23 06/19/23 History [id number] 1 tab PO DAILY 06/19/23 06/19/23 06/19/23 History tablet (Multivitamin 50 Plus tablet) pravastatin 80 mg tablet 80 mg PO BEDTIME 06/19/23 06/19/23 Unknown History Physical Exam Vital Signs: Last Vital Signs Temp 97.8 F 06/22/23 07:36 Pulse 67 06/22/23 07:36 Resp 18 06/22/23 07:36 BP 119/58 L 06/22/23 07:36 Pulse Ox 98 06/22/23 07:36 O2 Del Method Room Air 06/22/23 07:36 BMI result Body Mass Index 26.0 Awake. Comfortable. Neck is supple. Mucosa moist. Lungs bilateral scattered rhonchi. Heart S1-S2 heard no gallop. Abdomen soft. Extremities no edema. No involuntary movements. No myoclonus. Results Lab Results 06/20/23 04:50 06/22/23 05:41 Lab results: Chemistry 06/19/23 06/20/23 06/20/23 17:07 04:50 20:27 Sodium 123 L 126 L 129 L Potassium 4.7 3.9 4.1 Carbon Dioxide 24 23 26 BUN 15 12 16 Creatinine 0.88 0.75 0.82 Calcium 10.1 D 9.7 9.5 06/21/23 06/22/23 08:31 05:41 Sodium 128 L 131 L Potassium 4.6 3.9 Carbon Dioxide 24 26 BUN 18 H 18 H Creatinine 0.83 0.75 Calcium 9.4 9.5 Hematology 06/19/23 06/20/23 17:08 04:50 WBC 4.9 4.0 L Hgb 10.9 L 11.0 L Plt Count 232 D TNP Urinalysis 06/19/23 22:22 Urine Color Yellow Urine Appearance Clear Urine pH 6.0 Ur Specific [place] 1.010 Urine Protein Negative Urine Glucose (UA) Negative Urine Ketones 15 Urine Blood Negative Urine Nitrite Negative Ur Leukocyte Esterase Trace H Urine RBC 0-2 Urine WBC 0-5 Ur Squamous Epith Cells 0-2 Hyaline Casts 0-2 Urine Studies 06/19/23 22:22 Urine Osmolality 287 L Urine Creatinine 49.51 Assessment and Plan (1) Hyponatremia: Status: Acute Plan Elderly 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 Currently he is asymptomatic. Lisinopril could have contributed to decreased free water clearance in addition to increase free water intake. Recommendation would be to avoid lisinopril. Restrict oral free water intake. Goal is to maintain serum sodium of more than 130 millimoles. No indication for urea powder at this time. Shall follow-up as outpatient if discharged. Procedures Date of Service Date of Service: 06/22/23
[2023-06-22] MEDS: 0.9 % Sodium Chloride Flush 3 ML SYRINGE IVFLUSH ×3 (09:14→19:54)
[2023-06-22] MEDS: Cholecalciferol (Vitamin D3) 25 MCG TABLET 50 MCG PO (09:17)
[2023-06-22] MEDS: Multivitamin TABLET 1 TAB PO (09:17)
[2023-06-22] MEDS: Folic Acid 1 MG TABLET PO (09:17)
[2023-06-22] MEDS: amLODIPine Besylate 5 MG TABLET PO (09:17)
[2023-06-22] MEDS: lisinopriL 10 MG TABLET PO (09:17)
--- NOTE | 2023-06-22 10:43 | HO.PM.IMPN ---
Subjective Subjective Date of Service: 06/22/23 Interval History: follow-up on hyponatremia sodium 123 to 126 to 129 to 128 to 131 today she feels better, Physical Exam Vital Signs: Vital Signs: Last Vital Signs Temp 97.8 F 06/22/23 07:36 Pulse 67 06/22/23 07:36 Resp 18 06/22/23 07:36 BP 119/58 L 06/22/23 07:36 Pulse Ox 98 06/22/23 07:36 O2 Del Method Room Air 06/22/23 07:36 BMI result Body Mass Index 26.0 General: AO X 2, no acute distress Resp: CTA bilateral CVS: S1,S2,RRR GI: +BS, NT, no distention Skin: No rash Neuro: motor grossly intact Psych: appropriate affect Objective Data Active Medications Acetaminophen (Acetaminophen 325 Mg Tablet) 650 mg PO Q6H PRN PRN Reason: Pain, Mild (Pain Scale 1-3) Amlodipine Besylate (Amlodipine Besylate 5 Mg Tablet) 5 mg PO DAILY [facility] Last Admin: 06/22/23 09:17 Dose: 5 mg Documented By: OSIEL Enoxaparin Sodium (Enoxaparin Sodium 40 Mg/0.4 Ml Syringe) 40 mg SUBCUT Q24H [facility] Last Admin: 06/21/23 20:04 Dose: 40 mg Documented By: MACK Folic Acid (Folic Acid 1 Mg Tablet) 1 mg PO DAILY [facility] Last Admin: 06/22/23 09:17 Dose: 1 mg Documented By: OSIEL Lisinopril (Lisinopril 10 Mg Tablet) 10 mg PO DAILY [facility] Last Admin: 06/22/23 09:17 Dose: 10 mg Documented By: OSIEL Melatonin (Melatonin 3 Mg Tablet) 6 mg PO BEDTIME PRN PRN Reason: Insomnia Last Admin: 06/21/23 20:03 Dose: 6 mg Documented By: MACK Multivitamins/Vitamin C (Multivitamin Tablet) 1 tab PO DAILY [facility] Last Admin: 06/22/23 09:17 Dose: 1 tab Documented By: OSIEL Omeprazole (Omeprazole 20 Mg Capsule.) 20 mg PO DAILY@0630 [facility] Last Admin: 06/22/23 05:41 Dose: 20 mg Documented By: MACK Ondansetron HCl (Ondansetron Hcl 4 Mg/2 Ml Vial) 4 mg IVPUSH Q8H PRN PRN Reason: Nausea and Vomiting Pravastatin Sodium (Pravastatin Sodium 80 Mg Tablet) 80 mg PO BEDTIME [facility] Last Admin: 06/21/23 20:03 Dose: 80 mg Documented By: MACK Sodium Chloride (0.9 % Sodium Chloride Flush 3 Ml Syringe) 3 ml IVFLUSH QSHIFT [facility] Last Admin: 06/22/23 09:14 Dose: 3 ml Documented By: OSIEL Vitamin D (Cholecalciferol (Vitamin D3) 25 Mcg Tablet) 50 mcg PO DAILY [facility] Last Admin: 06/22/23 09:17 Dose: 50 mcg Documented By: OSIEL Labs 06/20/23 04:50 06/22/23 05:41 Labs: Laboratory Results - last 24 hr 06/22/23 05:41 Hold Purple Top SEE NOTE Anion Gap 10 L Estim Creat Clear Calc 49.2 Estimated GFR > 60 Random Glucose 101 Calcium 9.5 Assessment and Plan (1) Hyponatremia: Status: Acute Plan 82-year-old female with a PMH significant for?HTN, HLD, and recent admission after fall at home with left femoral neck fracture surgically repaired who presents to the ED for evaluation of low-sodium taken from outpatient labs. Pt will be admitted to the hospital for treatment and further evaluation of hyponatremia. Hyponatremia--asymptomatic, urine osmo 287, serum osmo 258, UrNA 30 suggest euvolemic hyponatremia--ie SIADH type vs excess water intake -sodium is improving -water restriction and follow serial sodium -Nephrology input HTN Continue amlodipine HLD Continue statin GERD Continue omeprazole Full Code Attending:?Dr. Galo DVT Prophylaxis: Lovenox inpt for treatment of hyponatremia possible dc later today Quality Stroke Does the patient have a stroke diagnosis?: No VTE Prior VTE?: No VTE Risk Level:: Medical - moderate - high VTE Device Contraindication: Treatment Not Indicated VTE Drug Contraindication: N/A - Med Ordered
[2023-06-22 11:02] VITALS: BP 119/58; PULSE 67; O2SAT 98
--- NOTE | 2023-06-22 14:12 | MHC.CM.PN ---
Addendum entered by Karine Hylton 06/22/23 14:16: KATY MET WITH CM WHEN HE ARRIVED HE REPORTS HE SPOKE TO PT AND DOES NOT FEEL SHE IS READY TO DC HE REPORTS HE ALSO CANNOT BE WITH HER TODAY CM INFORMED HIM SHE IS MEDICALLY CLEARED HE INITIALLY ASKED IF PT COULD DC TOMORROW AND CM STATED SINCE SHE IS ALREADY CLEAR, WE CAN ARRANGE A DC TIME FOR TOMORROW IF THAT IS THE EARLIEST YOU CAN BE THERE FOR HER. HE REPORTS YOU CAN JUST CALL ME TOMORROW CM STATED THE DC WOULD BE READY BY 1100 AND HE SHOULD BE PRESENT TO TRANSPORT PT AT THAT TIME HE AGAIN STATED CM SHOULD CALL WHEN SHE IS READY, CM AGAIN STATED PT WOULD BE READY FOR S[employer]KE [employer] AT 1100 HOURS TOMORROW REFERRAL PLACED TO [facility] FOR HOME PT SERVICES Original Note: CM CALLED PTS SON THIS MORNING TO INFORM HIM PT MAY BE CLEARED TO DC HE REPORTS HE DOES NOT FEEL THE PT SHOULD BE HOME ALONE TODAY IT IS HIS SISTERS BIRTHDAY AND SHE PASSED A COUPLE MONTHS AGO HE REPORTS HE CANNOT STAY WITH HER TODAY AND IS WORRIED THAT HER SODIUM NEEDS TO BE RECHECKED. HE REPORTED HE WOULD BE COMING IN TO SEE PT AND SPEAK TO CM THEN
[2023-06-22 15:47] VITALS: BP 123/59; PULSE 74; RESP 18; TEMP 36.7; O2SAT 96
[2023-06-22 19:12] VITALS: BP 125/56; PULSE 75; RESP 18; TEMP 36.6; O2SAT 96
[2023-06-22] MEDS: Enoxaparin Sodium 40 MG/0.4 ML SYRINGE SUBCUT (19:54)
[2023-06-22] MEDS: Pravastatin Sodium 80 MG TABLET PO (19:54)
[2023-06-22] MEDS: Melatonin 3 MG TABLET 6 MG PO (19:54)
[2023-06-23 02:48] VITALS: BP 137/66; PULSE 70; RESP 18; TEMP 36.6; O2SAT 98
[2023-06-23] MEDS: Omeprazole 20 MG CAPSULE.DR PO (05:51)
[2023-06-23 07:05] VITALS: BP 125/61; PULSE 64; RESP 12; TEMP 36; O2SAT 95
[2023-06-23] MEDS: 0.9 % Sodium Chloride Flush 3 ML SYRINGE IVFLUSH (08:36)
[2023-06-23] MEDS: Cholecalciferol (Vitamin D3) 25 MCG TABLET 50 MCG PO (08:37)
[2023-06-23] MEDS: Folic Acid 1 MG TABLET PO (08:37)
[2023-06-23] MEDS: Multivitamin TABLET 1 TAB PO (08:37)
[2023-06-23] MEDS: amLODIPine Besylate 5 MG TABLET PO (08:37)
--- NOTE | 2023-06-23 08:38 | MHC.CM.PN ---
pt dcd home no servies
--- NOTE | 2023-06-23 09:21 | P.PNNP_ITS ---
Subjective Subjective Date of Service: 06/23/23 Interval history: Events noted Feels better Na improving Physical Exam 2 Vital Signs: Vital Signs: Last Vital Signs Temp 96.8 F 06/23/23 07:05 Pulse 64 06/23/23 07:05 Resp 12 06/23/23 07:05 BP 125/61 06/23/23 07:05 Pulse Ox 95 06/23/23 07:05 O2 Del Method Room Air 06/23/23 07:05 BMI result Body Mass Index 26.0 HEENT: Other: Face is symmetrical. Mucous membranes moist. Eyes: Other: Pupils are round equal, conjunctivae clear, extraocular movements intact Neck: Other: No JVD Resp: Effort & Inspection: normal respiratory effort Auscultation: clear to auscultation bilaterally Cardio: Rate: regular rate Rhythm: regular rhythm Heart sounds: S1 normal heart sound present and S2 normal heart sound present GI: Other: Abdomen is soft and nontender Back/Spine/Pelvis: Other: No CVA percussion tenderness Skin: Other: Skin is dry and unremarkable Extrem: Other: No calf swelling or tenderness, no leg asymmetry Objective Data Labs 06/20/23 04:50 06/22/23 05:41 Procedures Date of Service Date of Service: 06/23/23 Assessment & Plan Assessment and plan (1) Hyponatremia: Status: Deleted Plan Elderly 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 Currently she is asymptomatic. Lisinopril could have contributed to decreased free water clearance in addition to increase free water intake. Recommendation would be to avoid lisinopril. Restrict oral free water intake. Goal is to maintain serum sodium of more than 130 millimoles. No indication for urea powder at this time. OK to DC Shall follow-up as outpatient if discharged. Time Spent With Patient Time: Total time managing care of this patient today ____ minutes. Progress Note: Quality Stroke Does the patient have a stroke diagnosis?: No
== END 2023-06-23 12:05 | disposition home health service (06) | DRG 641 ==
LOC: HO.ED 21:25 → HO.EDOVER 21:35 → HO.S3 23:20
PROVIDERS: Physician Assistant; Admitting Provider Student in an Organized Health Care Education/Training Program; Emergency Provider Emergency Medicine; PCP Internal Medicine; Visit Provider Internal Medicine
DX: E87.1 Hypo-osmolality and hyponatremia (principal); I10 Essential (primary) hypertension; E78.5 Hyperlipidemia, unspecified; K21.9 Gastro-esophageal reflux disease without esophagitis; Z79.899 Other long term (current) drug therapy
CPT/HCPCS: 36415; 80048; 80053; 81001; 82570; 83735; 83930; 83935; 84300; 84443; 85025; 93005; 97161; 99285; J1650

== ENCOUNTER → 2023-06-19 16:52 | Outpatient (BNV) | payer MEDICARE, SELFPAY | PROVIDERS: Admitting Provider Student in an Organized Health Care Education/Training Program; Emergency Provider Emergency Medicine; PCP Internal Medicine; Visit Provider Internal Medicine | DX: E87.1 Hypo-osmolality and hyponatremia (principal); R94.31 Abnormal electrocardiogram [ECG] [EKG] | CPT/HCPCS: 93010 ==

== ENCOUNTER → 2023-06-19 21:26 | Outpatient (BNV) | payer MEDICARE, SELFPAY | PROVIDERS: Admitting Provider Student in an Organized Health Care Education/Training Program; Emergency Provider Emergency Medicine; PCP Internal Medicine; Visit Provider Student in an Organized Health Care Education/Training Program | DX: E87.1 Hypo-osmolality and hyponatremia (principal) | CPT/HCPCS: 99222; 99232; 99238 ==

== ENCOUNTER → 2023-06-19 21:26 | Outpatient (BNV) | payer MEDICARE, SELFPAY | PROVIDERS: Admitting Provider Student in an Organized Health Care Education/Training Program; Emergency Provider Emergency Medicine; PCP Internal Medicine; Visit Provider Internal Medicine Hypertension Specialist | DX: E87.1 Hypo-osmolality and hyponatremia (principal) | CPT/HCPCS: 99222; 99232 ==

== ENCOUNTER 2023-07-01 11:48 | Outpatient (AMB) | payer MEDICARE, SELFPAY ==
[2023-07-01 12:28] VITALS: BP 100/56; PULSE 67; O2SAT 96; BMI 26.2
--- NOTE | 2023-07-01 12:28 | A.OFFPC_ITS ---
Vital Signs 07/01/23 12:28 Height 5 ft 2 in Weight 143 lb 2 oz BMI 26.2 BP 100/56 L Blood Pressure Location Rt brachial Position Sitting Pulse 67 Pulse Source Pulse Oximeter Pulse Oximetry (%) 96 Oxygen Delivery Method Room Air Intake Visit Reasons: F [facility] 06/18~Low sodium & Abnormal Labs Intake Note: Pt is here for HDF follow up from [facility] Allergies No Known Allergies Allergy (Verified 07/01/23 12:31) Medication List - Last Reconciled 07/01/23 by Brittney Marie MD amlodipine-benazepril 5-10 mg 1 cap PO DAILY cholecalciferol (vitamin D3) 50 mcg PO DAILY folic acid 1 mg PO DAILY silpnxlojtmo-zmttrqml-hfnnsd (Multivitamin 50 Plus tablet) 1 tab PO DAILY omeprazole 20 mg PO DAILY pravastatin 80 mg PO BEDTIME Tobacco use date assessed: 07/01/23 Fall risk assessment: 1 Fall in past year Last assessed Fall Risk: 07/01/23 HPI F [facility] 06/18~Low sodium & Abnormal Labs HPI Details Patient presents for the follow-up on hypertension and hyponatremia. Patient has been cutting down on fluid intake but according to her son she drinks up to 5 cans of diet Pepsi a day. [facility] Medical History Anemia Hypertension Surgical History History of hysterectomy Family History Father No problems noted. Mother Hypertension Social History Household Members: None Household Members Other:: single, lives alone, son lives near Housing: Apartment Do you presently have visiting nurse or other home services: No Patient Tobacco Use Status: Never used Tobacco e-Cigarette/Vaping Use: Never Used Advance Directives Date on File: 05/19/23 service: No Current occupational status: retired Cognitive needs: No Hearing needs: No Vision needs: Yes Questionnaire Thrive Questionnaire Date Thrive assessed: 06/20/23 BEBE-7 AMB Questionnaire BEBE-7 Date BEBE - 7 assessed: 04/28/23 Source: Developed by Drs. Calvin L. Alexandra Meeks, Kenn Kincaid and colleagues, with an educational clem from [employer]. Review of Systems Const All systems reviewed & are unremarkable except as noted in HPI and below Reports no additional complaints Eyes Reports no additional complaints ENT Reports no additional complaints Card Reports no additional complaints Resp Reports no additional complaints GI Reports no additional complaints Physical exam (Primary Care) Vital Signs: Last Vital Signs Pulse 67 07/01/23 12:28 BP 100/56 L 07/01/23 12:28 Pulse Ox 96 07/01/23 12:28 Oxygen Delivery Method Room Air 07/01/23 12:28 BMI result Body Mass Index 26.2 Tobacco/Smoking Status: Tobacco use Status Tobacco use date assessed 07/01/23 07/01/23 12:34 Patient Tobacco Use Status Never used Tobacco 07/01/23 12:34 e-Cigarette/Vaping Use Never Used 07/01/23 12:34 Thrive Assessment: Date of Thrive Assessment Date Thrive assessed 06/20/23 07/01/23 12:34 Const General: no acute distress HENMT Head: Yes normal to inspection Ears: hearing grossly normal bilaterally Throat: Yes posterior oropharynx normal Neck Neck: Yes supple Resp Auscultation: clear to auscultation bilaterally Cardio Rhythm: regular rhythm Heart sounds: S1 normal heart sound present and S2 normal heart sound present GI Inspection: Yes normal to inspection Palpation (GI): Soft to palpation Percussion: Yes normal to percussion Assessment and Plan Assessment & Plan (1) Anemia: Code(s): D64.9 - Anemia, unspecified Plan: Monitor CBC check iron and vitamin B12 level (2) Acute hyponatremia: Code(s): E87.1 - Hypo-osmolality and hyponatremia Plan: Fluid restriction diet discussed with the patient. Blood pressure is low and amlodipine with lisinopril will be decreased to 2.5/10 mg. Patient will follow- up in 6 weeks and will have weekly BMP checked for the next 3 weeks (3) Hypertension: Code(s): I10 - Essential (primary) hypertension Plan: Decrease the dose of amlodipine/lisinopril to 2.5/10 mg. follow-up in 6 weeks Orders: Orders Basic Metabolic Panel 1 Week D64.9 - Anemia, unspecified, E87.1 - Hypo- osmolality and hyponatremia Basic Metabolic Panel 2 Weeks D64.9 - Anemia, unspecified, E87.1 - Hypo- osmolality and hyponatremia IRON PROFILE Today D64.9 - Anemia, unspecified Vitamin B12 and Folate Today D64.9 - Anemia, unspecified Basic Metabolic Panel Today D64.9 - Anemia, unspecified, E87.1 - Hypo-osmolality and hyponatremia Complete Blood Count Auto Diff Today D64.9 - Anemia, unspecified Medications: New amlodipine-benazepril 2.5-10 mg 1 cap PO DAILY 90 caps 0RF Discontinued amlodipine-benazepril 5-10 mg Discontinued Reason: Doctor's Order 1 cap PO DAILY 90 caps 3RF Coding Level of Care Code Est Pt Level 4 (10503) Diagnoses Anemia D64.9 Acute hyponatremia E87.1 Hypertension I10
== END 2023-07-01 13:19 | disposition home or self-care (01) ==
PROVIDERS: PCP Internal Medicine; Visit Provider Internal Medicine
DX: D64.9 Anemia, unspecified (principal); E87.1 Hypo-osmolality and hyponatremia; I10 Essential (primary) hypertension
CPT/HCPCS: 99214

== ENCOUNTER 2023-07-02 14:01 | Outpatient (REF) | payer MEDICARE, SELFPAY ==
[2023-07-02 14:40] LABS: Anion Gap 13 (12-20); Blood Urea Nitrogen 14 mg/dL (9-16); Calcium 9.4 mg/dL (8.4-10.2); Carbon Dioxide 25 mmol/L (22-29); Chloride 98 mmol/L (96-108); Estimated Glomerular Filt Rate > 60; Glucose Random 93 mg/dL (60-115); Sodium 131 mmol/L (135-145)
== END 2023-07-02 14:02 | disposition home or self-care (01) ==
LOC: HO.HVNA 14:01
PROVIDERS: Visit Provider Internal Medicine
DX: D64.9 Anemia, unspecified (principal); E87.1 Hypo-osmolality and hyponatremia
CPT/HCPCS: 36415; 80048

== ENCOUNTER 2023-07-08 07:07 | Outpatient (REF) | payer MEDICARE, SELFPAY | END 2023-07-08 07:08 | disposition home or self-care (01) | LOC: HO.HOSX 07:07 | PROVIDERS: Visit Provider Orthopaedic Surgery | DX: Z13.89 Encounter for screening for other disorder (principal) ==

== ENCOUNTER 2023-07-08 10:00 | Outpatient (REF) | payer MEDICARE, SELFPAY ==
[2023-07-08 16:47] LABS: Anion Gap 15 (12-20); Blood Urea Nitrogen 12 mg/dL (9-16); Calcium 9.4 mg/dL (8.4-10.2); Carbon Dioxide 19 mmol/L (22-29); Chloride 98 mmol/L (96-108); Estimated Glomerular Filt Rate > 60; Glucose Random 78 mg/dL (60-115); Potassium 5.9 mmol/L (3.3-5.1); Sodium 126 mmol/L (135-145)
== END 2023-07-08 10:01 | disposition home or self-care (01) ==
LOC: HO.HVNA 10:00
PROVIDERS: PCP Internal Medicine; Visit Provider Internal Medicine
DX: D64.9 Anemia, unspecified (principal); E87.1 Hypo-osmolality and hyponatremia
CPT/HCPCS: 36415; 80048

== ENCOUNTER 2023-07-16 12:00 | Outpatient (REF) | payer MEDICARE, SELFPAY ==
[2023-07-16 16:38] LABS: Anion Gap 11 (12-20); Blood Urea Nitrogen 15 mg/dL (9-16); Calcium 9.5 mg/dL (8.4-10.2); Carbon Dioxide 25 mmol/L (22-29); Chloride 98 mmol/L (96-108); Estimated Glomerular Filt Rate > 60; Glucose Random 94 mg/dL (60-115); Potassium 4.4 mmol/L (3.3-5.1); Sodium 130 mmol/L (135-145)
== END 2023-07-16 12:01 | disposition home or self-care (01) ==
LOC: HO.HVNA 12:00
PROVIDERS: PCP Internal Medicine; Visit Provider Internal Medicine
DX: E87.1 Hypo-osmolality and hyponatremia (principal)
CPT/HCPCS: 36415; 80048

== ENCOUNTER 2023-08-11 12:23 | Outpatient (AMB) | payer MEDICARE, SELFPAY ==
[2023-08-11 12:29] VITALS: BP 122/58; PULSE 72; O2SAT 98; BMI 26.5
--- NOTE | 2023-08-11 12:29 | MHC.PC.OV ---
Vital Signs 08/11/23 12:29 Height 5 ft 2 in Weight 145 lb BMI 26.5 BP 122/58 L Blood Pressure Location Rt brachial Position Sitting Pulse 72 Pulse Source Pulse Oximeter Pulse Oximetry (%) 98 Oxygen Delivery Method Room Air Intake Visit Reasons: 6WK F/U Intake Note: Pt is here today for 6 weeks follow up visit. Allergies No Known Allergies Allergy (Verified 08/11/23 12:32) Medication List - Last Reconciled 08/11/23 by Brittney Marie MD amlodipine 5 mg PO DAILY cholecalciferol (vitamin D3) 50 mcg PO DAILY folic acid 1 mg PO DAILY mngfcpkkwyau-wgbvjulp-moylzs (Multivitamin 50 Plus tablet) 1 tab PO DAILY omeprazole 20 mg PO DAILY pravastatin 80 mg PO BEDTIME Tobacco use date assessed: 08/11/23 Dental Screening Dental Screen Date: 04/28/23 HPI 6WK F/U HPI Details Patient presents for the follow-up of hypertension hyponatremia hyperlipidemia. She is feeling well and has more energy. Patient has been ambulating with a walker at home and reports feeling stronger. She has been following fluid restriction and avoiding high sodium diet PFSH Medical History Anemia Hypertension Surgical History History of hysterectomy Family History Father No problems noted. Mother Hypertension Social History Household Members: None Household Members Other:: single, lives alone, son lives near Housing: Apartment Do you presently have visiting nurse or other home services: No Patient Tobacco Use Status: Never used Tobacco e-Cigarette/Vaping Use: Never Used Advance Directives Date on File: 05/19/23 service: No Current occupational status: retired Cognitive needs: No Hearing needs: No Vision needs: Yes Questionnaire Thrive Questionnaire Date Thrive assessed: 06/20/23 BEBE-7 AMB Questionnaire BEBE-7 Date BEBE - 7 assessed: 04/28/23 Source: Developed by Drs. Calvin Meeks, Alexandra Peterson, Kenn Kincaid and colleagues, with an educational clem from [employer]. Review of Systems Const All systems reviewed & are unremarkable except as noted in HPI and below Eyes Reports no additional complaints ENT Reports no additional complaints Card Reports no additional complaints Resp Reports no additional complaints GI Reports no additional complaints Reports no additional complaints Physical exam (Primary Care) Vital Signs: Last Vital Signs Pulse 72 08/11/23 12:29 BP 122/58 L 08/11/23 12:29 Pulse Ox 98 08/11/23 12:29 Oxygen Delivery Method Room Air 08/11/23 12:29 BMI result Body Mass Index 26.5 Tobacco/Smoking Status: Tobacco use Status Tobacco use date assessed 08/11/23 08/11/23 12:34 Patient Tobacco Use Status Never used Tobacco 08/11/23 12:34 e-Cigarette/Vaping Use Never Used 08/11/23 12:34 Thrive Assessment: Date of Thrive Assessment Date Thrive assessed 06/20/23 08/11/23 12:34 Const General: no acute distress HENMT Face and sinus: Yes normal facial exam Eyes General: appearance normal, both eyes and all related structures Neck Neck: Yes supple Resp Effort & Inspection: normal respiratory effort Auscultation: clear to auscultation bilaterally Cardio Rhythm: regular rhythm Heart sounds: S1 normal heart sound present and S2 normal heart sound present GI Inspection: Yes normal to inspection Palpation (GI): Soft to palpation Percussion: Yes normal to percussion Auscultation: normal bowel sounds Assessment and Plan Assessment & Plan (1) Hypertension: Code(s): I10 - Essential (primary) hypertension Plan: Continue current medications, in check comprehensive panel today (2) Anemia: Code(s): D64.9 - Anemia, unspecified Plan: Check CBC and iron studies (3) Acute hyponatremia: Code(s): E87.1 - Hypo-osmolality and hyponatremia Plan: Continue fluid restriction check labs today. Follow-up in 3 months (4) Hyperlipidemia: Code(s): E78.5 - Hyperlipidemia, unspecified Plan: Continue statin Orders: Orders IRON PROFILE Today D64.9 - Anemia, unspecified, E87.1 - Hypo-osmolality and hyponatremia, I10 - Essential (primary) hypertension Basic Metabolic Panel 3 Months E87.1 - Hypo-osmolality and hyponatremia, I10 - Essential (primary) hypertension Complete Blood Count Auto Diff 3 Months E87.1 - Hypo-osmolality and hyponatremia, I10 - Essential (primary) hypertension Complete Blood Count Auto Diff Today D64.9 - Anemia, unspecified, E87.1 - Hypo-osmolality and hyponatremia, I10 - Essential (primary) hypertension Comprehensive Met. Panel Today D64.9 - Anemia, unspecified, E87.1 - Hypo-osmolality and hyponatremia, I10 - Essential (primary) hypertension Vitamin B12 and Folate Today D64.9 - Anemia, unspecified, E87.1 - Hypo-osmolality and hyponatremia, I10 - Essential (primary) hypertension Medications: New amlodipine-benazepril 2.5-10 mg 1 cap PO DAILY 90 caps 0RF Refilled omeprazole 20 mg PO DAILY 30 caps 6RF Coding Level of Care Code Est Pt Level 4 (39610) Diagnoses Hypertension I10 Anemia D64.9 Acute hyponatremia E87.1 Hyperlipidemia E78.5
== END 2023-08-11 13:02 | disposition home or self-care (01) ==
PROVIDERS: PCP Internal Medicine; Visit Provider Internal Medicine
DX: I10 Essential (primary) hypertension (principal); D64.9 Anemia, unspecified; E87.1 Hypo-osmolality and hyponatremia; E78.5 Hyperlipidemia, unspecified
CPT/HCPCS: 99214

== ENCOUNTER 2023-08-11 13:03 | Outpatient (REF) | payer MEDICARE, SELFPAY ==
[2023-08-11 16:50] LABS: Hemoglobin 11.5 g/dl (12.0-16.0); Mean Corpuscular Hemoglobin 28.9 pg (27.0-33.0); PLT CLUMP 1; Red Blood Count 3.98 X10*6/uL (4.20-5.50); SCAN SMEAR FLAG 1
[2023-08-11 16:52] LABS: Basophils Absolute Auto 0.1 X10*3/uL (0.0-0.2); Basophils Percent Auto 1.1 % (0-2); Eosinophils Absolute Auto 0.1 X10*3/uL (0.0-0.4); Eosinophils Percent Auto 2.2 % (0-4); Hematocrit 33.9 % (37.0-47.0); Imm Gran Abs Auto 0.03 X10*3/uL (0.00-0.03); Imm Gran Pct Auto 0.7 % (0.0-0.4); Lymphocytes Absolute Auto 0.6 X10*3/uL (1.2-4.9); Lymphocytes Percent Auto 12.7 % (20-40); MANUAL DIFF FLAG SCAN; Mean Corpuscular HGB Conc 33.9 g/dl (31.0-35.0); Mean Corpuscular Volume 85.2 fL (80.0-98.0); Monocytes Absolute Auto 0.6 X10*3/uL (0.1-1.2); Monocytes Percent Auto 12.9 % (2-11); Neutrophils Absolute Auto 3.2 x10*3/uL (2.0-8.3); Neutrophils Percent Auto 70.4 % (45-73); Red Cell Distribution Width 12.9 % (11.0-16.0)
[2023-08-11 17:31] LABS: Alanine Aminotransferase 11 U/L (0-31); Alkaline Phosphatase 78 U/L (39-117); Anion Gap 11 (12-20); Aspartate Amino Transferase 15 U/L (5-31); Bilirubin Total 0.3 mg/dL (0.0-1.0); Blood Urea Nitrogen 12 mg/dL (9-16); Calcium 9.7 mg/dL (8.4-10.2); Carbon Dioxide 26 mmol/L (22-29); Chloride 95 mmol/L (96-108); Estimated Glomerular Filt Rate > 60; Glucose Random 95 mg/dL (60-115); Iron 43 mcg/dL (30-160); Percent Iron Saturation 15 % (15-50); Potassium 4.3 mmol/L (3.3-5.1); Sodium 128 mmol/L (135-145); Total Iron Binding Capacity 287 mcg/dL (228-428); Total Protein 7.2 g/dL (6.5-8.0); Unsaturated Iron Binding 244 ug/dL
[2023-08-11 17:38] LABS: White Blood Count 4.5 X10*3/uL (4.8-10.8)
[2023-08-11 17:40] LABS: SLIDE REVIEW VERIFIED
[2023-08-11 17:48] LABS: Vitamin D 25-OH Total 47.9 ng/mL (>30)
[2023-08-11 17:55] LABS: Folate > 20.0 ng/mL (> or = 4.0); Vitamin B12 739 pg/mL (200-900)
== END 2023-08-11 13:04 | disposition home or self-care (01) ==
LOC: HO.HMGCLDS 13:03
PROVIDERS: PCP Internal Medicine; Visit Provider Internal Medicine
DX: E87.1 Hypo-osmolality and hyponatremia (principal); I10 Essential (primary) hypertension; D64.9 Anemia, unspecified; E55.9 Vitamin D deficiency, unspecified
CPT/HCPCS: 36415; 80053; 82306; 82607; 82746; 83540; 85025

== ENCOUNTER 2023-08-27 10:02 | Outpatient (REF) | payer MEDICARE, SELFPAY ==
[2023-08-27 14:03] LABS: Anion Gap 15 (12-20); Blood Urea Nitrogen 21 mg/dL (9-16); Calcium 9.9 mg/dL (8.4-10.2); Carbon Dioxide 25 mmol/L (22-29); Chloride 98 mmol/L (96-108); Estimated Glomerular Filt Rate > 60; Glucose Random 104 mg/dL (60-115); Potassium 4.9 mmol/L (3.3-5.1); Sodium 133 mmol/L (135-145)
== END 2023-08-27 10:03 | disposition home or self-care (01) ==
LOC: HO.HMGCLDS 10:02
PROVIDERS: PCP Internal Medicine; Visit Provider Internal Medicine
DX: Z13.89 Encounter for screening for other disorder (principal)
CPT/HCPCS: 36415; 80048

== ENCOUNTER 2023-09-28 09:27 | Outpatient (REF) | payer MEDICARE, SELFPAY ==
[2023-09-28 10:19] LABS: MANUAL DIFF FLAG NO
[2023-09-28 10:32] LABS: Basophils Percent Auto 0.9 % (0-2); Eosinophils Absolute Auto 0.2 X10*3/uL (0.0-0.4); Eosinophils Percent Auto 3.6 % (0-4); Hematocrit 32.5 % (37.0-47.0); Hemoglobin 10.8 g/dl (12.0-16.0); Imm Gran Abs Auto 0.02 X10*3/uL (0.00-0.03); Imm Gran Pct Auto 0.4 % (0.0-0.4); Lymphocytes Absolute Auto 0.6 X10*3/uL (1.2-4.9); Lymphocytes Percent Auto 13.3 % (20-40); Mean Corpuscular HGB Conc 33.2 g/dl (31.0-35.0); Mean Corpuscular Hemoglobin 28.6 pg (27.0-33.0); Monocytes Absolute Auto 0.5 X10*3/uL (0.1-1.2); Monocytes Percent Auto 11.5 % (2-11); Neutrophils Absolute Auto 3.1 x10*3/uL (2.0-8.3); Neutrophils Percent Auto 70.3 % (45-73); Red Blood Count 3.78 X10*6/uL (4.20-5.50); Red Cell Distribution Width 13.6 % (11.0-16.0); White Blood Count 4.5 X10*3/uL (4.8-10.8)
[2023-09-28 11:02] LABS: Anion Gap 12 (12-20); Blood Urea Nitrogen 12 mg/dL (9-16); Calcium 9.6 mg/dL (8.4-10.2); Carbon Dioxide 26 mmol/L (22-29); Chloride 97 mmol/L (96-108); Estimated Glomerular Filt Rate 57; Glucose Random 95 mg/dL (60-115); Iron 65 mcg/dL (30-160); Percent Iron Saturation 22 % (15-50); Potassium 5.1 mmol/L (3.3-5.1); Sodium 130 mmol/L (135-145); Total Iron Binding Capacity 300 mcg/dL (228-428); Unsaturated Iron Binding 235 ug/dL
[2023-09-28 11:37] LABS: Folate > 20.0 ng/mL (> or = 4.0); Vitamin B12 722 pg/mL (200-900)
== END 2023-09-28 09:28 | disposition home or self-care (01) ==
LOC: HO.HMGCLDS 09:27
PROVIDERS: PCP Internal Medicine; Visit Provider Internal Medicine
DX: D64.9 Anemia, unspecified (principal); E87.1 Hypo-osmolality and hyponatremia
CPT/HCPCS: 36415; 80048; 82607; 82746; 83540; 85025

== ENCOUNTER 2023-12-10 12:16 | Outpatient (AMB) | payer MEDICARE, SELFPAY ==
--- NOTE | 2023-12-10 12:20 | A.OFFPC_ITS ---
Vital Signs 12/10/23 12:21 Height 5 ft 2 in Weight 153 lb BMI 28.0 BP 122/80 Blood Pressure Location Lt brachial Position Sitting Pulse 75 Pulse Source Pulse Oximeter Pulse Oximetry (%) 98 Oxygen Delivery Method Room Air Intake Visit Reasons: Follow up Intake Note: Pt is here today for a follow up visit. Allergies No Known Allergies Allergy (Verified 12/10/23 12:22) Tobacco use date assessed: 12/10/23 Dental Screening Dental Screen Date: 12/10/23 Did you have a dental visit in the last 12 months?: Yes Did you have a dental problem in the last 6 months where you did not have access to dental care?: No Was dental information given to patient?: Patient has dentist HPI Follow up HPI Details Pt presents for f/u HTN, hyperlipid, stable on meds. Patient recovered well from left hip replacement surgery and has been ambulating with a walker. [facility] Medical History Anemia Hypertension Surgical History History of hysterectomy Family History Father No problems noted. Mother Hypertension Social History Household Members: None Household Members Other:: single, lives alone, son lives near Housing: Apartment Do you presently have visiting nurse or other home services: No Patient Tobacco Use Status: Never used Tobacco e-Cigarette/Vaping Use: Never Used Advance Directives Date on File: 05/19/23 service: No Current occupational status: retired Cognitive needs: No Hearing needs: No Vision needs: Yes Questionnaire PHQ-9 Over the last 2 weeks, how often have you been bothered by any of the following problems? 4. Feeling tired or having little energy: not at all 5. Poor appetite or overeating: not at all Source: Developed by Drs. Calvin Meeks, Alexandra Peterson, Kenn Kincaid and colleagues, with an educational clem from [employer]. Thrive Questionnaire Date Thrive assessed: 12/10/23 I am a: Parent/Caregiver What is your living situation today?: I choose not to answer this question Within the past 12 months, did the food you bought not last and you didn't have the money to get more?: I choose not to answer this question Within the past 12 months, did you worry whether your food would run out before you got money to buy more?: I choose not to answer this question THRIVE Score: 0 AUDIT C Alcohol Use Questionnaire (AUDIT-C) 1. How often do you have a drink containing alcohol?: Never 3. How often do you have six or more drinks on one occasion?: Never Total Score: 0 BEBE-7 AMB Questionnaire BEBE-7 Date BEBE - 7 assessed: 04/28/23 Source: Developed by Drs. Calvin Meeks, Alexandra Peterson, Kenn Kincaid and colleagues, with an educational clem from [employer]. Review of Systems Const All systems reviewed & are unremarkable except as noted in HPI and below ENT Reports no additional complaints Card Reports no additional complaints Resp Reports no additional complaints GI Reports no additional complaints Physical exam (Primary Care) Vital Signs: Last Vital Signs Pulse 75 12/10/23 12:21 BP 122/80 12/10/23 12:21 Pulse Ox 98 12/10/23 12:21 Oxygen Delivery Method Room Air 12/10/23 12:21 BMI result Body Mass Index 28.0 Tobacco/Smoking Status: Tobacco use Status Tobacco use date assessed 12/10/23 12/10/23 12:29 Patient Tobacco Use Status Never used Tobacco 12/10/23 12:29 e-Cigarette/Vaping Use Never Used 12/10/23 12:20 Thrive Assessment: Date of Thrive Assessment Date Thrive assessed 12/10/23 12/10/23 12:20 Const General: no acute distress HENMT Mouth: Normal oral and palatal mucosa present Neck Neck: Yes supple Resp Effort & Inspection: normal respiratory effort Auscultation: clear to auscultation bilaterally Cardio Rhythm: regular rhythm Heart sounds: S1 normal heart sound present and S2 normal heart sound present GI Inspection: Yes normal to inspection Palpation (GI): Soft to palpation Percussion: Yes normal to percussion Assessment and Plan Assessment & Plan (1) Acute hyponatremia: Code(s): E87.1 - Hypo-osmolality and hyponatremia Plan: Continue fluid restriction check basic metabolic panel today (2) Hyperlipidemia: Code(s): E78.5 - Hyperlipidemia, unspecified Plan: Continue statin (3) Hypertension: Code(s): I10 - Essential (primary) hypertension Plan: Continue current medications, follow-up in 6 months (4) Vitamin D3 deficiency: Code(s): E55.9 - Vitamin D deficiency, unspecified (5) Anemia: Code(s): D64.9 - Anemia, unspecified Plan: Check CBC and iron study Orders: Orders Complete Blood Count Auto Diff Today D64.9 - Anemia, unspecified, E55.9 - Vitamin D deficiency, unspecified, E78.5 - Hyperlipidemia, unspecified, E87.1 - Hypo-osmolality and hyponatremia Vitamin B12 Today D64.9 - Anemia, unspecified, E55.9 - Vitamin D deficiency, unspecified, E78.5 - Hyperlipidemia, unspecified, E87.1 - Hypo-osmolality and hyponatremia Basic Metabolic Panel Today E78.5 - Hyperlipidemia, unspecified, E87.1 - Hypo- osmolality and hyponatremia, I10 - Essential (primary) hypertension IRON PROFILE Today D64.9 - Anemia, unspecified, E55.9 - Vitamin D deficiency, unspecified, E78.5 - Hyperlipidemia, unspecified, E87.1 - Hypo-osmolality and hyponatremia Coding Level of Care Code Est Pt Level 4 (43139) Diagnoses Acute hyponatremia E87.1 Hyperlipidemia E78.5 Hypertension I10 Vitamin D3 deficiency E55.9 Anemia D64.9
[2023-12-10 12:21] VITALS: BP 122/80; PULSE 75; O2SAT 98; BMI 28.0
== END 2023-12-10 13:17 | disposition home or self-care (01) ==
PROVIDERS: PCP Internal Medicine; Visit Provider Internal Medicine
DX: E87.1 Hypo-osmolality and hyponatremia (principal); E78.5 Hyperlipidemia, unspecified; I10 Essential (primary) hypertension; E55.9 Vitamin D deficiency, unspecified; D64.9 Anemia, unspecified
CPT/HCPCS: 99214

== ENCOUNTER 2023-12-10 13:05 | Outpatient (REF) | payer MEDICARE, SELFPAY ==
[2023-12-10 16:16] LABS: PLT CLUMP 1; SCAN SMEAR FLAG 1
[2023-12-10 16:18] LABS: Basophils Percent Auto 0.6 % (0-2); Eosinophils Percent Auto 0.8 % (0-4); Hematocrit 34.8 % (37.0-47.0); Hemoglobin 11.9 g/dl (12.0-16.0); Imm Gran Abs Auto 0.01 X10*3/uL (0.00-0.03); Imm Gran Pct Auto 0.2 % (0.0-0.4); Lymphocytes Absolute Auto 0.8 X10*3/uL (1.2-4.9); Lymphocytes Percent Auto 15.8 % (20-40); MANUAL DIFF FLAG SCAN; Mean Corpuscular HGB Conc 34.2 g/dl (31.0-35.0); Mean Corpuscular Hemoglobin 29.5 pg (27.0-33.0); Mean Corpuscular Volume 86.1 fL (80.0-98.0); Monocytes Absolute Auto 0.5 X10*3/uL (0.1-1.2); Monocytes Percent Auto 10.4 % (2-11); Neutrophils Absolute Auto 3.5 x10*3/uL (2.0-8.3); Neutrophils Percent Auto 72.2 % (45-73); Red Blood Count 4.04 X10*6/uL (4.20-5.50)
[2023-12-10 16:30] LABS: Anion Gap 11 (12-20); Blood Urea Nitrogen 12 mg/dL (9-16); Calcium 9.8 mg/dL (8.4-10.2); Carbon Dioxide 26 mmol/L (22-29); Chloride 95 mmol/L (96-108); Estimated Glomerular Filt Rate 60; Glucose Random 92 mg/dL (60-115); Iron 51 mcg/dL (30-160); Percent Iron Saturation 18 % (15-50); Potassium 4.8 mmol/L (3.3-5.1); Sodium 127 mmol/L (135-145); Total Iron Binding Capacity 286 mcg/dL (228-428); Unsaturated Iron Binding 235 ug/dL
[2023-12-10 17:00] LABS: Vitamin B12 880 pg/mL (200-900)
[2023-12-10 17:15] LABS: White Blood Count 4.8 X10*3/uL (4.8-10.8)
[2023-12-10 17:16] LABS: SLIDE REVIEW VERIFIED
== END 2023-12-10 13:06 | disposition home or self-care (01) ==
LOC: HO.HMGCLDS 13:05
PROVIDERS: PCP Internal Medicine; Visit Provider Internal Medicine
DX: D64.9 Anemia, unspecified (principal); E87.1 Hypo-osmolality and hyponatremia; I10 Essential (primary) hypertension; E78.5 Hyperlipidemia, unspecified; E55.9 Vitamin D deficiency, unspecified
CPT/HCPCS: 36415; 80048; 82607; 83540; 85025

== ENCOUNTER 2023-12-14 14:36 | Outpatient (REF) | payer MEDICARE, SELFPAY ==
[2023-12-14 16:40] LABS: Anion Gap 13 (12-20); Blood Urea Nitrogen 12 mg/dL (9-16); Calcium 9.6 mg/dL (8.4-10.2); Carbon Dioxide 23 mmol/L (22-29); Chloride 98 mmol/L (96-108); Estimated Glomerular Filt Rate > 60; Glucose Random 94 mg/dL (60-115); Potassium 4.4 mmol/L (3.3-5.1); Sodium 130 mmol/L (135-145)
== END 2023-12-14 14:37 | disposition home or self-care (01) ==
LOC: HO.HMGCLDS 14:36
PROVIDERS: PCP Internal Medicine; Visit Provider Internal Medicine
DX: E87.1 Hypo-osmolality and hyponatremia (principal)
CPT/HCPCS: 36415; 80048

== ENCOUNTER 2023-12-24 11:00 | Outpatient (REF) | payer MEDICARE, SELFPAY ==
[2023-12-24 13:43] LABS: Eosinophils Absolute Auto 0.1 X10*3/uL (0.0-0.4); Eosinophils Percent Auto 1.3 % (0-4); Hemoglobin 11.1 g/dl (12.0-16.0); Mean Corpuscular Hemoglobin 29.3 pg (27.0-33.0); Red Blood Count 3.79 X10*6/uL (4.20-5.50); SCAN SMEAR FLAG 1
[2023-12-24 13:45] LABS: Basophils Percent Auto 0.9 % (0-2); Hematocrit 32.8 % (37.0-47.0); Imm Gran Abs Auto 0.02 X10*3/uL (0.00-0.03); Imm Gran Pct Auto 0.4 % (0.0-0.4); Lymphocytes Absolute Auto 0.7 X10*3/uL (1.2-4.9); MANUAL DIFF FLAG SCAN; Mean Corpuscular HGB Conc 33.8 g/dl (31.0-35.0); Mean Corpuscular Volume 86.5 fL (80.0-98.0); Monocytes Absolute Auto 0.5 X10*3/uL (0.1-1.2); Monocytes Percent Auto 11.2 % (2-11); Neutrophils Absolute Auto 3.2 x10*3/uL (2.0-8.3); Neutrophils Percent Auto 71.2 % (45-73); PLT CLUMP 1
[2023-12-24 13:46] LABS: PLT ABN DIST 1
[2023-12-24 14:05] LABS: Anion Gap 12 (12-20); Blood Urea Nitrogen 12 mg/dL (9-16); Calcium 9.4 mg/dL (8.4-10.2); Carbon Dioxide 24 mmol/L (22-29); Chloride 97 mmol/L (96-108); Estimated Glomerular Filt Rate > 60; Glucose Random 98 mg/dL (60-115); Potassium 4.3 mmol/L (3.3-5.1); Sodium 129 mmol/L (135-145)
[2023-12-24 14:11] LABS: White Blood Count 4.5 X10*3/uL (4.8-10.8)
[2023-12-24 14:12] LABS: SLIDE REVIEW VERIFIED
== END 2023-12-24 11:01 | disposition home or self-care (01) ==
LOC: HO.HMGCLDS 11:00
PROVIDERS: PCP Internal Medicine; Visit Provider Internal Medicine
DX: E87.1 Hypo-osmolality and hyponatremia (principal); I10 Essential (primary) hypertension; D64.9 Anemia, unspecified; E78.5 Hyperlipidemia, unspecified; E55.9 Vitamin D deficiency, unspecified
CPT/HCPCS: 36415; 80048; 85025

== ENCOUNTER 2024-01-27 11:19 | Outpatient (REF) | payer MEDICARE, SELFPAY ==
[2024-01-27 14:18] LABS: Anion Gap 12 (12-20); Blood Urea Nitrogen 15 mg/dL (9-16); Calcium 9.5 mg/dL (8.4-10.2); Carbon Dioxide 25 mmol/L (22-29); Chloride 105 mmol/L (96-108); Estimated Glomerular Filt Rate > 60; Glucose Random 98 mg/dL (60-115); Potassium 4.4 mmol/L (3.3-5.1); Sodium 138 mmol/L (135-145)
== END 2024-01-27 11:20 | disposition home or self-care (01) ==
LOC: HO.HMGCLDS 11:19
PROVIDERS: PCP Internal Medicine; Visit Provider Internal Medicine
DX: E87.1 Hypo-osmolality and hyponatremia (principal)
CPT/HCPCS: 36415; 80048

== ENCOUNTER 2024-06-10 10:01 | Outpatient (REF) | payer MEDICARE, SELFPAY ==
[2024-06-10 13:44] LABS: Monocytes Percent Auto 10.2 % (2-11); Neutrophils Absolute Auto 4.2 x10*3/uL (2.0-8.3); PLT CLUMP 1; SCAN SMEAR FLAG 1
[2024-06-10 13:46] LABS: Basophils Absolute Auto 0.1 X10*3/uL (0.0-0.2); Basophils Percent Auto 0.8 % (0-2); Eosinophils Absolute Auto 0.1 X10*3/uL (0.0-0.4); Eosinophils Percent Auto 1.3 % (0-4); Hematocrit 41.6 % (37.0-47.0); Hemoglobin 13.9 g/dl (12.0-16.0); Imm Gran Abs Auto 0.01 X10*3/uL (0.00-0.03); Imm Gran Pct Auto 0.2 % (0.0-0.4); Lymphocytes Absolute Auto 1.3 X10*3/uL (1.2-4.9); Lymphocytes Percent Auto 20.5 % (20-40); MANUAL DIFF FLAG SCAN; Mean Corpuscular HGB Conc 33.4 g/dl (31.0-35.0); Mean Corpuscular Hemoglobin 29.4 pg (27.0-33.0); Mean Corpuscular Volume 88.1 fL (80.0-98.0); Monocytes Absolute Auto 0.6 X10*3/uL (0.1-1.2); Red Blood Count 4.72 X10*6/uL (4.20-5.50)
[2024-06-10 14:01] LABS: Alanine Aminotransferase 14 U/L (0-31); Albumin Level 4.1 g/dL (3.5-5.0); Alkaline Phosphatase 83 U/L (39-117); Anion Gap 12 (12-20); Aspartate Amino Transferase 21 U/L (5-31); Bilirubin Total 0.4 mg/dL (0.0-1.0); Blood Urea Nitrogen 16 mg/dL (9-16); Calcium 9.9 mg/dL (8.4-10.2); Carbon Dioxide 22 mmol/L (22-29); Chloride 108 mmol/L (96-108); Cholesterol 188 mg/dL (<200); Estimated Glomerular Filt Rate 55; Glucose Fasting 112 mg/dL (60-99); HDL Cholesterol 65 mg/dL (>40); LDL Cholesterol Calculated 104 mg/dL (<100); Potassium 4.4 mmol/L (3.3-5.1); Sodium 138 mmol/L (135-145); Total Protein 7.8 g/dL (6.5-8.0); Triglycerides 96 mg/dL (<150)
[2024-06-10 14:03] LABS: White Blood Count 6.3 X10*3/uL (4.8-10.8)
[2024-06-10 14:04] LABS: SLIDE REVIEW VERIFIED
== END 2024-06-10 10:02 | disposition home or self-care (01) ==
LOC: HO.HMGCLDS 10:01
PROVIDERS: PCP Internal Medicine; Visit Provider Internal Medicine
DX: D64.9 Anemia, unspecified (principal); I10 Essential (primary) hypertension; E55.9 Vitamin D deficiency, unspecified; E78.5 Hyperlipidemia, unspecified
CPT/HCPCS: 36415; 80053; 80061; 82306; 85025

== ENCOUNTER 2024-06-15 13:28 | Outpatient (AMB) | payer MEDICARE, SELFPAY ==
--- NOTE | 2024-06-15 13:43 | AM.OFFVISMDC ---
Intake Vital Signs 06/15/24 14:05 Height 5 ft 2 in Weight 166 lb BMI 30.4 BP 110/66 Blood Pressure Location Lt brachial Position Sitting Respiration 20 Pulse 84 Pulse Source Pulse Oximeter Temp 98.0 F Temp Source Oral Pulse Oximetry (%) 95 Oxygen Delivery Method Room Air Intake Visit Reasons: SWV [id number] Allergies No Known Allergies Allergy (Verified 06/15/24 14:12) Medication List - Last Reconciled 06/15/24 by Brittney Marie MD amlodipine 5 mg PO DAILY cholecalciferol (vitamin D3) 50 mcg PO DAILY folic acid 1 mg PO DAILY blejzjafpzal-hkaoafno-blgyvh (Multivitamin 50 Plus tablet) 1 tab PO DAILY omeprazole 20 mg PO DAILY pravastatin 80 mg PO DAILY HPI SWV [id number] HPI Details Initiated the conversation about Advanced Directives. Advanced Directives help? patients prepare for current and future decisions about their medical treatment? and place of care. Discussed with patient that it is a process where a patients? current condition and prognosis are reviewed, their wishes for information? regarding their illness are elicited, and likely medical dilemmas are presented? and options discussed. The form can be amended as needed, reviewed yearly and? make changes as needed IPPE/AWV ? year old presents? for her ? Annual? Wellness Visit, initial visit.? Medical / Social History Reviewed? Past Medical History ?Yes? . ? [place]? of Care / Care Team list updated ?Yes . ? Surgical/Hospitalization? History ?Yes . ? Current Medications? (including OTC and supplements) ?Yes . ? Family History ?Yes? . ? Tobacco? Control form ?Yes . ? AUDIT-C (Alcohol use) form? ?Yes . ? Illicit drug use in Social? History ?Yes . ? Current diagnosis of? depression? ?No ? Appropriate PHQ2/PHQ9? completed ?Yes . ? Data entered by ?Medical? [employer] and reviewed by provider ? Fall Risk ? Fall? History? Have you had any falls with? injury in the past year? ?No . ? Have you had two or more? falls in the past year? ?No . ? Fall Risk Assessment: ?No? falls in the past year . ? HRA filled out by? the patient, reviewed by Provider and scanned. ? IPPE/AWV ? Balance? [place]? ?Yes . ? Tandem? walk ?Yes . ? Walk and? Turn ?Yes . ? Rise from? sit to stand ?Yes . ?Vision? Corrective? lens ?Yes ? Vision? screen ? Up-to-date, has an appointment [] for vision? screening and glaucoma screening ?Hearing? Whisper? test ?pass .? Initiated the conversation about Advanced Directives. Advanced Directives help? patients prepare for current and future decisions about their medical treatment? and place of care. Discussed with patient that it is a process where a patients? current condition and prognosis are reviewed, their wishes for information? regarding their illness are elicited, and likely medical dilemmas are presented? and options discussed. The form can be amended as needed, reviewed yearly and? make changes as needed Written? Plan?Completed. See Patient? Documents. [facility] Medical History Anemia Hypertension Surgical History History of hysterectomy Family History Father No problems noted. Mother Hypertension Social History Household Members: None Household Members Other:: single, lives alone, son lives near Housing: Apartment Do you presently have visiting nurse or other home services: No Patient Tobacco Use Status: Never used Tobacco e-Cigarette/Vaping Use: Never Used Advance Directives Date on File: 05/19/23 service: No Current occupational status: retired Cognitive needs: No Hearing needs: No Vision needs: Yes Questionnaire Medicare Wellness Checkup What is your age?: 78 or older What gender do you identify with?: female During the past 4 weeks, how much have you been bothered by emotional problems such as feeling anxious, depressed, irritable, sad or downhearted, and blue?: not at all During the past 4 weeks, has your physical & emotional health limited your social activities with family, friends, neighbors, or groups?: not at all During the past 4 weeks, how much bodily pain have you generally had?: no pain During the past 4 weeks, was someone available to help you if you needed & wanted help?: yes, as much as I wanted During the past 4 weeks, what was the hardest physical activity you could do for at least 2 minutes?: very light Can you get to places out of walking distance without help? (For eg., can you travel alone on buses, taxis or drive your car?): Yes Can you go shopping for groceries or clothes without someone's help?: Yes Can you prepare your own meals?: Yes Can you do your housework without help?: Yes Because of any health problems, do you need the help of another person with your personal care needs such as eating, bathing, dressing or getting around the house?: No Can you handle your own money without help?: Yes During the past 4 weeks, how would you rate your health in general?: excellent During the past 4 weeks how have things been going for you?: very well; could hardly better Are you having difficulties driving your car?: not applicable, I don't use a car Do you always fasten your seat belt when you are in a car?: yes, sometimes During past 4 weeks, have you been bothered by the following: never: Falling or dizzy when standing up, Sexual problems?, Trouble eating well?, Teeth or denture problems? and Problems using the telephone? and seldom: Tiredness or fatigue? Have you fallen 2 or more times in the past year?: No Are you afraid of falling?: No Are you a smoker?: no During the past 4 weeks, how many drinks of wine, beer, or other alcoholic beverages did you have?: no alcohol at all Do you exercise for about 20 minutes 3 or more times a week?: no, I usually do not exercise this much Have you been given information to help with the following?: no: Hazards in your house that might hurt you? and no: Keeping track of your medications? How often do you have trouble taking medicines the way you have been told to take them?: I always take medicine as prescribed How confident are you that you can control & manage most of your health problems?: very confident What is your race?: White Mini Mental State Exam (MMSE) Orientation What is the (year) (season) (date) (day) (month)?: year, season, date, day and month Where are we (state) (county) (town or city) (hospital) (floor)?: state, county, town or city, hospital/clinic and floor Registration Name of 3 unrelated objects clearly and slowly, then ask patient to repeat all 3 of them. (1st repeat determines score. Make sure they can repeat all three): object 1, object 2 and object 3 Attention & Calculation (CHOOSE ONE) Spell WORLD backwards (DLROW): 5 letters Recall Ask patient to repeat the 3 items from question #3.: object 1, object 2 and object 3 Language Show patient a wristwatch & ask what it is. Repeat for pencil.: watch and pencil Ask the patient to repeat the phrase 'No ifs, ands, or buts' after you.: correct Ask the patient to 'take a piece of paper with their right hand' 'fold paper in half' 'place paper on floor': take paper in right hand, fold paper in half and place paper on floor Print the sentence 'CLOSE YOUR EYES' on a piece. If patient actually closes eyes then score.: followed written direction Give patient a blank piece of paper & ask to write a sentence. Score if it contains a noun & verb.: sentence contains subject and verb Score Score: 29 PHQ-9 Over the last 2 weeks, how often have you been bothered by any of the following problems? 1. Little interest or pleasure in doing things: not at all 2. Feeling down, depressed, or hopeless: not at all 3. Trouble falling or staying asleep, or sleeping too much: not at all 4. Feeling tired or having little energy: not at all 5. Poor appetite or overeating: not at all 6. Feeling bad about yourself - or that you are a failure or have let yourself or your family down: not at all 7. Trouble concentrating on things, such as reading the newspaper or watching television: not at all 8. Moving or speaking so slowly that other people could have noticed. Or the opposite - being so fidgety or restless that you have been moving around a lot more than usual: not at all 9. Thoughts that you would be better off or of hurting yourself in some way: not at all Total score: 0 Depression Screening Interpretation: Negative Depression Screening Done: Yes 73488 - PHQ-9 Billing: Yes Source: Developed by Drs. Calvin Meeks, Alexandra Peterson, Kenn Kincaid and colleagues, with an educational clem from [employer]. Review of Systems Const All systems reviewed & are unremarkable except as noted in HPI and below Eyes Reports no additional complaints ENT Reports no additional complaints Card Reports no additional complaints Resp Reports no additional complaints GI Reports no additional complaints Reports no additional complaints Physical Exam Vital Signs: Last Vital Signs Temp 98.0 F 06/15/24 14:05 Pulse 84 06/15/24 14:05 Resp 20 06/15/24 14:05 BP 110/66 06/15/24 14:05 Pulse Ox 95 06/15/24 14:05 Oxygen Delivery Method Room Air 02/26/25 14:05 BMI result Body Mass Index 30.4 Const General: no acute distress HEENT Head: Yes normal to inspection Ears: hearing grossly normal bilaterally Eyes General: appearance normal, both eyes and all related structures Neck Neck: Yes no lymphadenopathy and Yes supple Resp Effort & Inspection: normal respiratory effort Auscultation: clear to auscultation bilaterally Cardio Rhythm: regular rhythm Heart sounds: S1 normal heart sound present and S2 normal heart sound present GI Inspection: Yes normal to inspection Palpation (GI): Soft to palpation Percussion: Yes normal to percussion Auscultation: normal bowel sounds Extrem General: Yes no clubbing, cyanosis or edema Assessment & Plan Assessment & Plan (1) Acute hyponatremia: Comment: fluid restriction Code(s): E87.1 - Hypo-osmolality and hyponatremia Plan: Continue fluid restriction monitor sodium level (2) Hypertension: Code(s): I10 - Essential (primary) hypertension Plan: Continue amlodipine (3) Hyperlipidemia: Code(s): E78.5 - Hyperlipidemia, unspecified Plan: Continue pravastatin (4) Annual physical exam: Code(s): Z00.00 - Encounter for general adult medical examination without abnormal findings Plan: Well-balanced diet regular physical activity discussed with the patient return in 6 months Orders: Orders Comprehensive Met. Panel 6 Months E87.1 - Hypo-osmolality and hyponatremia, I10 - Essential (primary) hypertension, R73.9 - Hyperglycemia, unspecified Complete Blood Count Auto Diff 6 Months E87.1 - Hypo-osmolality and hyponatremia, I10 - Essential (primary) hypertension, R73.9 - Hyperglycemia, unspecified Hemoglobin A1c 6 Months E87.1 - Hypo-osmolality and hyponatremia, I10 - Essential (primary) hypertension, R73.9 - Hyperglycemia, unspecified Medications: Refilled amlodipine 5 mg PO DAILY 90 tabs 3RF pravastatin 80 mg PO DAILY 90 tabs 3RF omeprazole 20 mg PO DAILY 30 caps 6RF cholecalciferol (vitamin D3) 50 mcg PO DAILY 90 tabs 3RF folic acid 1 mg PO DAILY 90 tabs 3RF Quality Reporting (2019) Depression/Bipolar (159/160/161/177) PHQ-9: Total score: 0 Coding Level of Care Code Medicare Subsequent (G0439) Diagnoses Acute hyponatremia E87.1 Hypertension I10 Hyperlipidemia E78.5 Annual physical exam Z00.00 CPT Codes Advance Care Planning - Advance Care Planning discussion: On file, no changes ([id number]) Advance Care Planning - Time spent: 1-15 minutes, on File ([id number]) Additional Codes PHQ-9 - 15082 - PHQ-9 Billing: Yes ([id number]) Advance Care Planning Advance Care Planning discussion: On file, no changes Forms completed: Health Care Proxy Time spent: 1-15 minutes, on File Did not discuss due to Cultural/Spiritual beliefs: Yes
[2024-06-15 14:05] VITALS: BP 110/66; PULSE 84; RESP 20; TEMP 36.7; O2SAT 95; BMI 30.4
== END 2024-06-15 14:51 | disposition home or self-care (01) ==
PROVIDERS: PCP Internal Medicine; Visit Provider Internal Medicine
DX: Z00.00 Encounter for general adult medical examination without abnormal findings (principal); E87.1 Hypo-osmolality and hyponatremia; I10 Essential (primary) hypertension; E78.5 Hyperlipidemia, unspecified

== ENCOUNTER → 2024-06-15 13:28 | Outpatient (BNVA) | payer MEDICARE, SELFPAY | PROVIDERS: PCP Internal Medicine; Visit Provider Internal Medicine | DX: Z00.00 Encounter for general adult medical examination without abnormal findings (principal); E87.1 Hypo-osmolality and hyponatremia; E78.5 Hyperlipidemia, unspecified; I10 Essential (primary) hypertension | CPT/HCPCS: 96127 ==

== ENCOUNTER 2024-12-13 11:33 | Outpatient (REF) | payer MEDICARE, SELFPAY ==
[2024-12-13 13:38] LABS: Imm Gran Abs Auto 0.03 X10*3/uL (0.00-0.03); Imm Gran Pct Auto 0.5 % (0.0-0.4); MANUAL DIFF FLAG SCAN; Mean Corpuscular HGB Conc 33.4 g/dl (31.0-35.0); Mean Corpuscular Hemoglobin 29.1 pg (27.0-33.0); NRBC Abs Auto 0.000 X10*3/uL (0.0-0.012); NRBC Pct Auto 0.0 /100WBC (0.0-0.2); PLT CLUMP 1; SCAN SMEAR FLAG 1
[2024-12-13 13:40] LABS: Hematocrit 40.4 % (37.0-47.0); Hemoglobin 13.5 g/dl (12.0-16.0); Lymphocytes Absolute Auto 1.3 X10*3/uL (1.2-4.9); Mean Corpuscular Volume 87.1 fL (80.0-98.0); Red Blood Count 4.64 X10*6/uL (4.20-5.50)
[2024-12-13 13:55] LABS: Hemoglobin A1C 131.4039 umol/L; Total Hemoglobin (HGBA1C) 3430.7021 umol/L
[2024-12-13 14:01] LABS: White Blood Count 6.4 X10*3/uL (4.8-10.8)
[2024-12-13 14:06] LABS: Alanine Aminotransferase 13 U/L (0-31); Albumin Level 4.3 g/dL (3.5-5.0); Alkaline Phosphatase 78 U/L (39-117); Anion Gap 14 (12-20); Aspartate Amino Transferase 22 U/L (5-31); Blood Urea Nitrogen 10 mg/dL (9-16); Calcium 9.4 mg/dL (8.4-10.2); Carbon Dioxide 21 mmol/L (22-29); Chloride 108 mmol/L (96-108); Estimated Glomerular Filt Rate 56; Potassium 3.7 mmol/L (3.3-5.1); Sodium 139 mmol/L (135-145); Total Protein 7.2 g/dL (6.5-8.0)
== END 2024-12-13 11:34 | disposition home or self-care (01) ==
LOC: HO.HMGCLDS 11:33
PROVIDERS: PCP Internal Medicine; Visit Provider Internal Medicine
DX: E87.1 Hypo-osmolality and hyponatremia (principal); I10 Essential (primary) hypertension; R73.9 Hyperglycemia, unspecified
CPT/HCPCS: 36415; 80053; 83036; 85025